=== PATIENT | female | born 1955 | race Caucasian/White ===

== ENCOUNTER 2016-05-02 17:35 | Inpatient (IN) | payer MEDICAID ==
[~2016-05-02] VITALS: Ht 160 cm; Wt 81.8 kg
[~2016-05-02 17:35] MED LIST: ATOR1TAB18 PO; AVEL1TAB PO; CALCCAP12 PO; CEFD1CAP8 PO; COMBAER6 INH; DEXT75EL PO; DRIS50002 PO; DUONSOL INH; IBUP800T23 PO; IPRASOL4 NEB; JANU100T PO; METF1000 PO; MOM30SS PO; NICO14DI3 TD; PRED10TA PO; PRED20TA PO; PRED20TAB PO; PRED5TA PO; SENO8.6T10 PO; SENO8.6T2 PO; SYMB80INH INH; SYNT112T2 PO; VITA100037 PO; ZITH500T PO
[2016-05-02] MEDS ORDERED: PROA1AER (18:10)
[2016-05-02] MEDS ORDERED: IPRASOL4 NEB (18:10)
[2016-05-02] MEDS ORDERED: GLYB5TA PO (18:10)
[2016-05-02] MEDS ORDERED: dexameTHASONE 20 MG/5 ML VIAL (J1100) IV ONE (19:30)
[2016-05-02] MEDS ORDERED: ACETAMINOPHEN 325 MG TAB PO ONE (19:30)
[2016-05-02] MEDS: IPRATROPIUM 0.5MG/ALBUTEROL 2.5MG INH SOL UD 3ML (DUONEB)(J7620) NEB SCH ×4 (19:44→23:32)
[2016-05-02 19:45] LABS: BASO % 0.3 % (0.0-1.0); EOS % 0.1 % (0.0-3.0); LARGE UNSTAINED CELL # 0.1 K/mm3 (0.0-0.4); LARGE UNSTAINED CELL % 1.5 % (0.0-4.0); LYMPH # 1.1 K/mm3 (1.5-4.5); LYMPH % 10.4 % (24.0-44.0); MEAN CORPUSCULAR HEMOGLOBIN 30.1 pg (27.0-33.0); MEAN CORPUSCULAR HGB CONC 33.6 g/dl (32.0-36.5); MEAN CORPUSCULAR VOLUME 89.7 fl (80.0-96.0); MONO # 0.7 K/mm3 (0.0-0.8); NEUTROPHILS # 7.6 K/mm3 (1.8-7.7); NEUTROPHILS % 80.7 % (36.0-66.0); PLATELET COUNT, AUTOMATED 162 k/mm3 (150-450); RED CELL DISTRIBUTION WIDTH 14.5 % (11.5-14.5); WHITE BLOOD COUNT 9.4 K/mm3 (4.0-10.0)
[2016-05-02 19:55] LABS: ANION GAP 8 MEQ/L (8-16); BLOOD UREA NITROGEN 10 MG/DL (7-18); CALCIUM LEVEL 9.2 MG/DL (8.8-10.2); CARBON DIOXIDE LEVEL 29 MEQ/L (21-32); CHLORIDE LEVEL 103 MEQ/L (98-107); CREATININE FOR GFR 0.78 MG/DL (0.55-1.02); GLOMERULAR FILTRATION RATE > 60.0 (>45); GLUCOSE, FASTING 168 MG/DL (80-110); POTASSIUM SERUM 3.9 MEQ/L (3.5-5.1); SODIUM LEVEL 140 MEQ/L (136-145)
--- NOTE | 2016-05-02 20:13 | REP ---
Clinical: Dyspnea. Comparison: 12/29/2014. Findings: Examination is limited by portable technique and poor expiratory effort. Chronic basilar changes are appreciated. Subtle atelectasis cannot be excluded. No discrete focal consolidation, effusion, or pneumothorax. Impression: Chronic changes. Cannot exclude trace basilar atelectasis. Signed by Scout King MD 05/02/2016 08:04 P
[2016-05-02 20:18] LABS: VENOUS BASE EXCESS 3.1 (-2.0-2.0); VENOUS O2 SATURATION 93.4 % (60.0-80.0); VENOUS PARTIAL PRESSURE CO2 46.8 mmHg (38.0-50.0); VENOUS STANDARD HCO3 27.1 MEQ/L
[2016-05-02] MEDS ORDERED: NS 500 ML IV ONE (20:45)
[2016-05-02 23:54] LABS: MAGNESIUM LEVEL 1.7 MG/DL (1.8-2.4)
[2016-05-03] MEDS ORDERED: ACETAMINOPHEN TAB 650MG DOSE (2X325MG) PO PRN
[2016-05-03] MEDS ORDERED: AZITHROMYCIN INJ 500 MG, VIAL MATE ADAPTER 1 EACH in D5W 250 ML IV SCH ×3
[2016-05-03] MEDS ORDERED: ONDANSETRON 4MG/2ML VIAL (J2405) IV PRN
[2016-05-03] MEDS ORDERED: IPRATROPIUM 0.5MG/ALBUTEROL 2.5MG INH SOL UD 3ML (DUONEB)(J7620) NEB SCH
[2016-05-03] MEDS ORDERED: GLUCOSE 4 GM CHEW TABLET PO PRN
[2016-05-03] MEDS ORDERED: IPRATROPIUM 0.5MG/ALBUTEROL 2.5MG INH SOL UD 3ML (DUONEB)(J7620) NEB PRN
[2016-05-03] MEDS ORDERED: DEXTROSE 50% 50 ML SYRINGE IV PRN
[2016-05-03] MEDS ORDERED: cefTRIAXone SOD 1 GM in D5W MINI-BAG PLUS 50 ML IV SCH ×2
[2016-05-03] MEDS ORDERED: GLUCAGON FOR INJ 1 MG VIAL (J1610) SC PRN
[2016-05-03] MEDS: IPRATROPIUM 0.5MG/ALBUTEROL 2.5MG INH SOL UD 3ML (DUONEB)(J7620) NEB SCH ×4 (00:03→21:23)
[2016-05-03] MEDS ORDERED: SYMB16INH INH (00:21)
[2016-05-03] MEDS ORDERED: CALC1TAB17 PO (00:21)
[2016-05-03] MEDS ORDERED: IBUP60TA PO (00:21)
[2016-05-03] MEDS ORDERED: ALBU17IN INH (00:21)
[2016-05-03] MEDS ORDERED: NYST100024 TOP (00:22)
[2016-05-03] MEDS ORDERED: TYLE500T78 PO (00:22)
[2016-05-03] MEDS ORDERED: MAG SULF 1GM/100ML (MAG RUN) 1 GM in APPROPRIATE DILUENT 1 EA IV ONE (00:30)
[2016-05-03] MEDS ORDERED: SYNT125T PO (00:42)
[2016-05-03] MEDS ORDERED: methylPREDNISolone INJ 125 MG/2 ML VIAL (J2930) IV SCH ×2 (01:00→09:00)
[2016-05-03 01:22] LABS: ERYTHROCYTE SEDIMENTATION RATE 26 mm/hr (0-30)
[2016-05-03] MEDS ORDERED: SODIUM CHLORIDE 0.9% 1000 ML IV ONE (01:45)
[2016-05-03] MEDS: LevoFLOXacin IV 750 MG in APPROPRIATE DILUENT 1 EA IV SCH ×2 (02:11→23:46)
[2016-05-03] MEDS: NS 1,000 ML IV SCH ×4 (02:45→23:45)
[2016-05-03] MEDS ORDERED: NS 1,000 ML IV ONE (02:45)
--- NOTE | 2016-05-03 04:15 | HPE ---
DATE OF ADMISSION: 05/03/2016 TIME PATIENT WAS SEEN: 01:00 PRIMARY CARE PROVIDER: Dr. Pruitt CIVIL ENGINEERING DESIGN DRAFTSPERSON: Dr. Bryant CHIEF COMPLAINT: Shortness of breath. HISTORY OF PRESENT ILLNESS: 60-year-old female with past medical history of chronic obstructive pulmonary disease (COPD), non-insulin dependent type 2 diabetes, hyperlipidemia, hypothyroidism, osteoporosis, presented with increased shortness of breath. Per patient, her symptoms initially started one month ago with a cough and progressively her troubled breathing has increased, especially in the past few days. She said that she could have gotten a cold. In addition, her sister also has cold-like symptoms, who lives with her. She also reports greenish-yellowish sputum and productive cough with green-yellowish sputum. She also reports shortness of breath , some nausea, and chronic diarrhea for at least one year. In addition, she reports hurting when she tries to go urinate started a few days ago. She also admits to elevated temperature, when she was initially seen in the emergency room. Temperature was 100.1; however, she denies any chills. Denies any chest pain, abdominal pain, any vomiting, or constipation. Last bowel movement was the day before yesterday. Denies any rash, or denies any recent weight changes. ALLERGIES: No known drug allergies. HOME MEDICATIONS: Includes - acetaminophen 1000 mg one tablet by mouth every six hours as needed - Ventolin two puffs inhalation every four hours as needed - DuoNeb treatments one nebulizer four times a day - atorvastatin 80 mg one tablet by mouth four times a day - Symbicort 160/4.5 mcg two puffs inhalation twice a day - calcium with vitamin D 200 units one tablet by mouth daily - glyburide 5 mg one tablet by mouth twice a day - ibuprofen 600 mg one tablet by mouth every six hours as needed - Synthroid 125 mcg by mouth daily - metformin 1000 mg one tablet by mouth bid - nystatin powder topically twice a day as needed - Januvia 100 mg one tablet by mouth once a day - vitamin D 50,000 units one tablet every week - vitamin D 2000 units one tablet by mouth once a day PAST MEDICAL HISTORY: 1. COPD, emphysematous on two liters of oxygen 24 hours a day at home. 2. Non-insulin dependent diabetes type 2 diabetes. 3. Hyperlipidemia. 4. Hypothyroidism. 5. Osteoporosis. 6. Chronic pain. 7. Vitamin D deficiency. PAST SURGICAL HISTORY: 1. Appendectomy. 2. Hernia repair times two. SOCIAL HISTORY: Patient denies any smoking quit one year ago used to smoke two packs per day for at least 30 years. She also reports to second hand smoke at smoke. Denies any drinking or recreational drug use. Patient lives with several family members including sister and her son. FAMILY HISTORY: Asthma, diabetes, Alzheimer's and emphysema runs in the family. REVIEW OF SYSTEMS: GENERAL: Patient denies any recent traveling. Admits to weight loss of about 10 pounds over the past few months. Admits to sick contacts. Patient states her sister is also having cold-like symptoms. Denies any chills. Admits to low-grade temperature in the emergency room. HEENT: Denies any changes with vision, smell, hearing or taste. Admits to cough, which was productive with yellow-greenish sputum. Admits to sore throat. CARDIOVASCULAR: Denies any chest pain. Admits to trouble breathing which has increased over the past few days. Admits to sleeping at an angle using hospital bed. PULMONARY: Patient does have COPD, which is emphysematous type, follows with Dr. Bryant, pulmonology outpatient and she also uses two liters of nasal cannula oxygen 24 hours a day at home at baseline. However, she has been using more oxygen lately due to increased trouble breathing. GI: Denies any abdominal pain. Admits to feeling nausea; however, no vomiting. She also has chronic diarrhea; however, has not had loose stools since two days ago. : Patient admits to dysuria and hurting when she urinates. Denies any blood in the urine. Denies any blood in the stool. MUSCULOSKELETAL: Patient does have chronic pain; however, denies pain any where else currently. ENDOCRINE: Patient does have type 2 diabetes and also hypothyroidism. Denies any excessive cold or heat intolerance currently. HEMATOLOGY/ONCOLOGY: Admits to weight loss of about 10 pounds over the past few months. Denies any bruising or easy bleeding or any current bleeding. NEUROLOGICAL: Denies any weakness on one side of the body, or change in sensation. PSYCHIATRIC: Denies any anxiety or depression. PHYSICAL EXAMINATION: VITAL SIGNS: Temperature 100.1, pulse 109, respirations 24, blood pressure 139/70, oxygen saturation at 87% on room air, initially when patient was seen she was satting at 93% on two liters nasal cannula. GENERAL: Patient is morbidly obese, elderly female who was pleasant, appears to be in no distress, sitting up in her bed with head elevated at 90 degrees. HEENT: Normocephalic, atraumatic. Extraocular motors are intact. Mucous membranes moist. NECK: Supple. No neck lymphadenopathy. CARDIOVASCULAR: Tachycardic, S1, S2. No murmurs, rubs, or gallops. LUNGS: Shows diffuse wheezing and rhonchi bilaterally. ABDOMEN: Obese, positive bowel sounds. Soft, nontender, nondistended. No peritoneal signs. No ecchymosis. EXTREMITIES: No edema, clubbing, or cyanosis. SKIN: Warm and dry. NEURO: Cranial nerves II-XII intact. No focal neurological deficit. LABS: WBC 9.4, hemoglobin 14.7, hematocrit 43.6, platelet count of 162 and MCV of 89.7. Sodium 140, potassium 3.9, chloride 103, bicarbonate 29, BUN 10, creatinine 0.78, GFR greater than 60, fasting glucose 168, lactic acid 2.2, calcium 9.2, magnesium 1.7, which was low, CK 48, CK-MB 1, troponin less than 0.02, CRP was elevated at 8.19. BNP was 15.6, TSH 0.405. Patient had an VBG in the emergency department (ED) which shows pH 7.4, pCO2 46.8, pO2 63, oxygen saturation was 93% with base excess of 3.1. Urinalysis shows cloudy, 1+ protein, 3+ glucose, trace ketone, 3+ leukocyte esterase, WBC was too many to count, RBC 9, bacteremia 3+. Urine culture is pending. Blood culture is pending. Rapid flu test was negative. Patient also had a portable chest x-ray in the emergency room shows chronic changes, cannot exclude trace atelectasis. ASSESSMENT AND PLAN: 60-year-old female with past medical history of chronic obstructive pulmonary disease (COPD), emphysematous type on two liters nasal cannula 24 hours a day at home, non-insulin dependent type 2 diabetes, hyperlipidemia, hypothyroidism, osteoporosis, vitamin D deficiency, presented with: 1. Shortness of breath with hypercarbic, hypoxic respiratory failure likely secondary to COPD exacerbation with possible upper respiratory infection, possible viral. We will start the patient on levofloxacin 750 mg every 24 hours, as well as DuoNebs every eight hours and every 2 hours as needed, Solu-Medrol 60 mg every eight hours, continue patient on oxygen, titrate between 88 and 92 percent. I will also order guaifenesin, and also Tessalon Perles to control patient's cough. Respiratory panel has also been ordered to identify etiology of possible viral infection. At this point, the patient's chest x-ray did not show any infiltrate; however, it does have mild trace basilar atelectasis . 3. Tachycardia with pulse of 110s likely secondary to COPD exacerbation. EKG shows sinus tachycardia. We will continue to monitor. Cardiac markers have been negative. Troponin was less than 0.02. 4. Non-insulin dependent type 2 diabetes. We will hold oral medications. Continue patient on insulin sliding-scale and consistent carbohydrate diet. 5. Hyperlipidemia. Continue home statin. 6. Hypothyroidism. Thyroid stimulating hormone was within range. Continue home Synthroid. 7. Osteoporosis. Continue home calcium. 8. Elevated blood pressure. However, patient's blood pressure was not elevated before patient was seen in the emergency room. We will start patient on Norvasc 5 mg daily with hold parameters with systolic blood pressure less than or equal to 160. 9. Patient also has urinary tract infection with positive urinalysis. Urine culture is pending. We will continue patient on levofloxacin. 10. Deep vein thrombosis (DVT) prophylaxis. Heparin 5000 units subcutaneous every eight hours. DISPOSITION: The patient likely has chronic obstructive pulmonary disease (COPD) exacerbation as well as possible urinary tract infection (UTI) with positive urinalysis. Urine culture is pending. We will continue patient on levofloxacin to cover for both possible bronchitis and urinary tract infection (UTI), and continue to monitor patient. Patient has been discussed with attending doctor, Dr. Joe. My preceptor for this patient encounter was Dr. John Paul Joe. The preceptor was physically present in the building during the encounter and was fully available as needed. All aspects of the patient interview, examination, medical decision making process, and medical care plan development were reviewed and approved by the preceptor. The preceptor is aware and concurs with the plan as stated in the body of this note and will attest to such by his co-signature.
[2016-05-03 06:15] VITALS: BP 142/60
[2016-05-03] MEDS: LEVOTHYROXINE 0.125 MG TAB (125 MCG) PO SCH ×2 (06:32→08:20)
[2016-05-03] MEDS: HEPARIN SOD (PORCINE) 5000 UNITS/ML VIAL SC SCH ×3 (06:33→21:29)
[2016-05-03 07:16] LABS: VENOUS BASE EXCESS -3.8 (-2.0-2.0); VENOUS O2 SATURATION 99.1 % (60.0-80.0); VENOUS PARTIAL PRESSURE CO2 36.1 mmHg (38.0-50.0); VENOUS STANDARD HCO3 21.4 MEQ/L; VENOUS TOTAL CO2 21.8 MEQ/L (24.0-28.0)
[2016-05-03 07:24] LABS: BASO % 0.1 % (0.0-1.0); EOS % 0.3 % (0.0-3.0); LARGE UNSTAINED CELL % 0.4 % (0.0-4.0); LYMPH # 0.5 K/mm3 (1.5-4.5); LYMPH % 5.9 % (24.0-44.0); MEAN CORPUSCULAR HEMOGLOBIN 29.5 pg (27.0-33.0); MEAN CORPUSCULAR HGB CONC 32.9 g/dl (32.0-36.5); MEAN CORPUSCULAR VOLUME 89.5 fl (80.0-96.0); MONO # 0.1 K/mm3 (0.0-0.8); MONO % 1.5 % (0.0-5.0); NEUTROPHILS # 7.6 K/mm3 (1.8-7.7); NEUTROPHILS % 91.9 % (36.0-66.0); PLATELET COUNT, AUTOMATED 158 k/mm3 (150-450); RED CELL DISTRIBUTION WIDTH 14.6 % (11.5-14.5); WHITE BLOOD COUNT 8.2 K/mm3 (4.0-10.0)
[2016-05-03 07:40] LABS: ANION GAP 10 MEQ/L (8-16); BLOOD UREA NITROGEN 11 MG/DL (7-18); CALCIUM LEVEL 7.8 MG/DL (8.8-10.2); CARBON DIOXIDE LEVEL 23 MEQ/L (21-32); CHLORIDE LEVEL 106 MEQ/L (98-107); CREATININE FOR GFR 0.85 MG/DL (0.55-1.02); GLOMERULAR FILTRATION RATE > 60.0 (>45); GLUCOSE, FASTING 290 MG/DL (80-110); POTASSIUM SERUM 3.7 MEQ/L (3.5-5.1); SODIUM LEVEL 139 MEQ/L (136-145)
[2016-05-03 08:00] VITALS: BP 138/73
[2016-05-03] MEDS: amLODIPine 5 MG TAB PO SCH (08:21)
[2016-05-03] MEDS: HumaLOG INSULIN (NovoLOG) PER UNIT SC SCH ×4 (08:21→21:00)
[2016-05-03] MEDS: DOCUSATE SODIUM 100 MG CAP PO SCH ×2 (08:21→21:00)
[2016-05-03] MEDS: ATORVASTATIN 20 MG TAB PO SCH (08:21)
[2016-05-03] MEDS: CALCIUM/VITAMIN D 500 MG TAB PO SCH (08:21)
[2016-05-03] MEDS: guaiFENesin ER 600 MG TAB PO SCH ×2 (08:21→21:29)
--- NOTE | 2016-05-03 11:32 | IPNPDOC ---
Subjective Date Seen The patient was seen on 05/03/16. Subjective Chief Complaint/HPI The patient is a 60-year-old female admitted with a reason for visit of Copd With Acute Exacerbation. Events since last encounter Still with cough. Less SOB. Very shaky Constitutional: Denies: Chills, Fever Pulmonary: Reports: Cough, Dyspnea Cardiovascular: Denies: Chest Pain, Orthopnea, Palpitations Gastrointestinal: Denies: Abdominal Pain, Constipation, Diarrhea, Nausea, Vomiting Objective Physical Examination General Exam: Positive: Alert, Other (Tremulous with hand and leg shaking BL right > Left) Chest Exam: Positive: Diminished (decreased BS with scattered end exp wheezes throughout ), Wheezing Heart Exam: Positive: Regular Rhythm, Tachycardic, Negative: Murmurs Abdomen Exam: Positive: Normal bowel sounds, Soft, Negative: Tenderness Extremity Exam: Negative: Edema Psych Exam: Positive: Oriented x 3 Assessment /Plan Problems (1) COPD with acute exacerbation Status: Acute Problem Text: Continue IV solumedrol - decrease dose to 40IV q 8 hours due to tremulousness Continue LEVAquin CXR negative B/C pending continue nebs Add Tussionex for hs cough (2) Tremulousness Status: Acute Problem Text: may be related to steroids - I will decrease dose No h/o ETOH abuse, but was taking copious amounts of NyQill (4 bottles in 4 days ) prior to admission (3) Elevated lactic acid level Status: Acute Response to Treatment: Improving Problem Text: Continue IVF B/C pending Continue Levaquin (4) Diabetes type 2, uncontrolled Status: Chronic Problem Text: Blood sugars running high secondary to steroids. continue SSI Restart Glipizide and Metformin once eating better (5) Hypothyroidism Status: Chronic Response to Treatment: Stable Plan/VTE VTE Prophylaxis Ordered?: Yes (SQ heparin) VS, I&O, 24H, Fishbone Vital Signs/I&O Vital Signs Date Time Temp Pulse Resp B/P Pulse Ox O2 Delivery O2 Flow Rate FiO2 05/03/16 08:21 98 138/73 05/03/16 08:00 96.9 20 91 Nasal Cannula 2.0 I&O- Last 24 Hours up to 6 AM 05/03/16 06:00 Intake Total 1100 ml Balance 1100 ml Laboratory Data 24H LABS Laboratory Tests 2 05/02/16 18:00: Anion Gap 8, B-Type Natriuretic Peptide 15.6, White Blood Count 9.4, Red Blood Count 4.86, Hemoglobin 14.7, Hematocrit 43.6, Mean Corpuscular Volume 89.7, Mean Corpuscular Hemoglobin 30.1, Mean Corpuscular Hemoglobin Concent 33.6, Red Cell Distribution Width 14.5, Platelet Count 162, Neutrophils (%) (Auto) 80.7H, Lymphocytes (%) (Auto) 10.4L, Monocytes (%) (Auto) 7.0H, Eosinophils (%) (Auto) 0.1, Basophils (%) (Auto) 0.3, Neutrophils # (Auto) 7.6, Lymphocytes # (Auto) 1.1L, Monocytes # (Auto) 0.7, Eosinophils # (Auto) 0.0, Basophils # (Auto) 0.0, C-Reactive Protein, Quantitative 8.19H, Blood Urea Nitrogen 10, Creatinine 0.78 , Sodium Level 140, Potassium Level 3.9, Chloride Level 103, Carbon Dioxide Level 29, Calcium Level 9.2, Total Creatine Kinase 48, Creatine Kinase MB 1.0, Creatine Kinase MB Relative Index 2.08, Erythrocyte Sedimentation Rate 26, Glomerular Filtration Rate > 60.0, Lactic Acid Level 2.2*H, Large Unclassified Cells # 0.1, Large Unclassified Cells % 1.5, Magnesium Level 1.7L, Thyroid Stimulating Hormone (TSH) 0.405, Troponin I < 0.02 05/02/16 19:47: Blood Gas Bicarbonate Standard 27.1, Venous Blood Base Excess 3.1H, Venous Blood pH 7.404, Venous Blood Partial Pressure CO2 46.8, Venous Blood Partial Pressure O2 63.0H, Venous Blood Total Carbon Dioxide 30.0H, Venous Blood HCO3 28.6H, Venous Blood Oxygen Saturation 93.4H 05/03/16 01:32: Urine Amorphous Sediment , Urine Appearance CLOUDYH, Urine Color ARIE, Urine pH 5.0, Urine Specific Mertens 1.024, Urine Protein 1+H, Urine Glucose (UA) 3+H , Urine Ketones TRACEH, Urine Urobilinogen 0.2, Urine Bilirubin NEGATIVE, Urine Leukocyte Esterase 3+H, Urine Bacteria (Auto) 3+H, Urine Blood NEGATIVE, Urine Calcium Carbonate Cryst(Auto) , Urine Calcium Oxalate Cryst (Auto) , Urine Calcium Phosphate Sarah (Auto) , Urine Cellular Casts , Urine Cystine Crystals , Urine Granular Casts (Auto) , Urine Hyaline Casts (Auto) 0, Urine Leucine Crystals , Urine Mucus (Auto) LARGE, Urine Nitrite POSITIVE, Urine Oval Fat Bodies (Auto) , Urine RBC (Auto) 9H, Urine Renal Epithelial Cells , Urine Sperm (Auto) , Urine Squamous Epithelial Cells 2, Urine Transitional Epithelial Cells , Urine Trichomonas (Auto) , Urine Triple Phosphate Cryst (Auto) , Urine Tyrosine Crystals , Urine Uric Acid Crystals (Auto) , Urine WBC (Auto) TNTCH, Urine Waxy Casts (Auto) , Urine Yeast-Like Cells (Auto) 05/03/16 01:48: Lactic Acid Followup at 4 Hours 8.9*H 05/03/16 02:38: Total Creatine Kinase 46 05/03/16 07:10: Anion Gap 10, White Blood Count 8.2, Red Blood Count 4.42, Hemoglobin 13.0, Hematocrit 39.6, Mean Corpuscular Volume 89.5, Mean Corpuscular Hemoglobin 29.5 , Mean Corpuscular Hemoglobin Concent 32.9, Red Cell Distribution Width 14.6H, Platelet Count 158, Neutrophils (%) (Auto) 91.9H, Lymphocytes (%) (Auto) 5.9L, Monocytes (%) (Auto) 1.5, Eosinophils (%) (Auto) 0.3, Basophils (%) (Auto) 0.1, Neutrophils # (Auto) 7.6, Lymphocytes # (Auto) 0.5L, Monocytes # (Auto) 0.1, Eosinophils # (Auto) 0.0, Basophils # (Auto) 0.0, Blood Gas Bicarbonate Standard 21.4, Blood Urea Nitrogen 11, Creatinine 0.85, Sodium Level 139, Potassium Level 3.7, Chloride Level 106, Carbon Dioxide Level 23, Calcium Level 7.8#L, Glomerular Filtration Rate > 60.0, Lactic Acid Level 3.4*H, Large Unclassified Cells # 0.0, Large Unclassified Cells % 0.4, Magnesium Level 2.0, Venous Blood Base Excess -3.8L, Venous Blood pH 7.377, Venous Blood Partial Pressure CO2 36.1L, Venous Blood Partial Pressure O2 150.0H, Venous Blood Total Carbon Dioxide 21.8L, Venous Blood HCO3 20.7L, Venous Blood Oxygen Saturation 99.1H CBC/BMP Laboratory Tests 05/02/16 18:00 Calcium Level 9.2, Total Creatine Kinase 48, Red Blood Count 4.86, Mean Corpuscular Volume 89.7, Mean Corpuscular Hemoglobin 30.1, Mean Corpuscular Hemoglobin Concent 33.6, Red Cell Distribution Width 14.5, Neutrophils (%) (Auto ) 80.7 H, Lymphocytes (%) (Auto) 10.4 L, Monocytes (%) (Auto) 7.0 H, Eosinophils (%) (Auto) 0.1, Basophils (%) (Auto) 0.3, Neutrophils # (Auto) 7.6, Lymphocytes # (Auto) 1.1 L, Monocytes # (Auto) 0.7, Eosinophils # (Auto) 0.0, Basophils # (Auto) 0.0 05/03/16 07:10 Calcium Level 7.8 #L, Red Blood Count 4.42, Mean Corpuscular Volume 89.5, Mean Corpuscular Hemoglobin 29.5, Mean Corpuscular Hemoglobin Concent 32.9, Red Cell Distribution Width 14.6 H, Neutrophils (%) (Auto) 91.9 H, Lymphocytes (%) (Auto ) 5.9 L, Monocytes (%) (Auto) 1.5, Eosinophils (%) (Auto) 0.3, Basophils (%) ( Auto) 0.1, Neutrophils # (Auto) 7.6, Lymphocytes # (Auto) 0.5 L, Monocytes # ( Auto) 0.1, Eosinophils # (Auto) 0.0, Basophils # (Auto) 0.0 Microbiology Microbiology 05/02/16 Blood Culture, Received Pending 05/02/16 Respiratory Virus Panel (PCR) ([facility]), Received Pending 05/02/16 Influenza Virus Type A Antigen - Final, Complete 05/02/16 Influenza Virus Type B Antigen - Final, Complete 05/03/16 Urine Culture, Received Pending ALBIN ZIMMERMAN PA-C May 03, 2016 11:32
[2016-05-03] MEDS ORDERED: BENZONATATE 100 MG CAP PO PRN ×2 (11:45)
[2016-05-03 12:00] VITALS: BP 116/60
[2016-05-03 16:00] VITALS: BP 104/81
[2016-05-03] MEDS: methylPREDNISolone INJ 40 MG/1 ML VIAL (J2920) IV SCH (16:47)
[2016-05-03 20:00] VITALS: BP 116/61
[2016-05-03 21:23] VITALS: O2SAT 94
[2016-05-04] VITALS (7 sets, daily range): BP systolic 114–153; BP diastolic 61–83
[2016-05-04] MEDS: methylPREDNISolone INJ 40 MG/1 ML VIAL (J2920) IV SCH ×3 (02:01→17:02)
[2016-05-04] MEDS: NS 1,000 ML IV SCH ×4 (05:10→22:14)
[2016-05-04] MEDS: LEVOTHYROXINE 0.125 MG TAB (125 MCG) PO SCH (05:10)
[2016-05-04] MEDS: HEPARIN SOD (PORCINE) 5000 UNITS/ML VIAL SC SCH ×3 (05:10→20:45)
[2016-05-04 06:01] LABS: BASO % 0.1 % (0.0-1.0); EOS % 0.2 % (0.0-3.0); LARGE UNSTAINED CELL # 0.1 K/mm3 (0.0-0.4); LARGE UNSTAINED CELL % 0.4 % (0.0-4.0); LYMPH # 0.8 K/mm3 (1.5-4.5); LYMPH % 4.4 % (24.0-44.0); MEAN CORPUSCULAR HEMOGLOBIN 29.7 pg (27.0-33.0); MEAN CORPUSCULAR HGB CONC 32.2 g/dl (32.0-36.5); MONO # 0.5 K/mm3 (0.0-0.8); MONO % 3.1 % (0.0-5.0); NEUTROPHILS # 15.5 K/mm3 (1.8-7.7); NEUTROPHILS % 91.7 % (36.0-66.0); PLATELET COUNT, AUTOMATED 185 k/mm3 (150-450); RED CELL DISTRIBUTION WIDTH 14.6 % (11.5-14.5); WHITE BLOOD COUNT 16.9 K/mm3 (4.0-10.0)
[2016-05-04 06:07] LABS: ALBUMIN 2.6 GM/DL (3.2-5.2); ALBUMIN/GLOBULIN RATIO 0.67 (1.00-1.93); ALKALINE PHOSPHATASE 112 U/L (45-117); ALT/SGPT 15 U/L (12-78); ANION GAP 7 MEQ/L (8-16); AST/SGOT 15 U/L (15-37); BILIRUBIN,TOTAL 0.2 MG/DL (0.2-1.0); BLOOD UREA NITROGEN 19 MG/DL (7-18); CALCIUM LEVEL 8.3 MG/DL (8.8-10.2); CARBON DIOXIDE LEVEL 25 MEQ/L (21-32); CHLORIDE LEVEL 109 MEQ/L (98-107); CREATININE FOR GFR 0.82 MG/DL (0.55-1.02); GLOMERULAR FILTRATION RATE > 60.0 (>45); GLUCOSE, FASTING 225 MG/DL (80-110); SODIUM LEVEL 141 MEQ/L (136-145); TOTAL PROTEIN 6.5 GM/DL (6.4-8.2)
[2016-05-04] MEDS: IPRATROPIUM 0.5MG/ALBUTEROL 2.5MG INH SOL UD 3ML (DUONEB)(J7620) NEB SCH ×2 (07:30→20:37)
[2016-05-04] MEDS: ATORVASTATIN 20 MG TAB PO SCH (09:22)
[2016-05-04] MEDS: DOCUSATE SODIUM 100 MG CAP PO SCH ×2 (09:23→20:44)
[2016-05-04] MEDS: CALCIUM/VITAMIN D 500 MG TAB PO SCH (09:23)
[2016-05-04] MEDS: guaiFENesin ER 600 MG TAB PO SCH ×2 (09:23→20:44)
[2016-05-04] MEDS: amLODIPine 5 MG TAB PO SCH (09:23)
[2016-05-04] MEDS: HumaLOG INSULIN (NovoLOG) PER UNIT SC SCH ×4 (09:34→20:45)
[2016-05-04] MEDS: NYSTATIN 100,000 UNITS/GM TOPICAL PWD 15 GM TOP SCH (22:14)
[2016-05-05] MEDS: methylPREDNISolone INJ 40 MG/1 ML VIAL (J2920) IV SCH ×2 (00:15→08:35)
[2016-05-05] MEDS: LevoFLOXacin IV 750 MG in APPROPRIATE DILUENT 1 EA IV SCH (00:15)
[2016-05-05 04:00] VITALS: BP 126/72
[2016-05-05 05:31] LABS: BASO % 0.1 % (0.0-1.0); EOS % 0.2 % (0.0-3.0); LARGE UNSTAINED CELL # 0.1 K/mm3 (0.0-0.4); LARGE UNSTAINED CELL % 0.4 % (0.0-4.0); LYMPH # 0.7 K/mm3 (1.5-4.5); LYMPH % 5.1 % (24.0-44.0); MEAN CORPUSCULAR HEMOGLOBIN 29.1 pg (27.0-33.0); MEAN CORPUSCULAR HGB CONC 32.5 g/dl (32.0-36.5); MEAN CORPUSCULAR VOLUME 89.7 fl (80.0-96.0); MONO # 0.4 K/mm3 (0.0-0.8); MONO % 3.1 % (0.0-5.0); NEUTROPHILS # 11.6 K/mm3 (1.8-7.7); NEUTROPHILS % 91.1 % (36.0-66.0); PLATELET COUNT, AUTOMATED 186 k/mm3 (150-450); RED CELL DISTRIBUTION WIDTH 14.6 % (11.5-14.5); WHITE BLOOD COUNT 12.7 K/mm3 (4.0-10.0)
[2016-05-05 05:47] LABS: ANION GAP 7 MEQ/L (8-16); BLOOD UREA NITROGEN 16 MG/DL (7-18); CALCIUM LEVEL 8.1 MG/DL (8.8-10.2); CARBON DIOXIDE LEVEL 25 MEQ/L (21-32); CHLORIDE LEVEL 109 MEQ/L (98-107); CREATININE FOR GFR 0.68 MG/DL (0.55-1.02); GLOMERULAR FILTRATION RATE > 60.0 (>45); GLUCOSE, FASTING 305 MG/DL (80-110); MAGNESIUM LEVEL 2.1 MG/DL (1.8-2.4); POTASSIUM SERUM 4.3 MEQ/L (3.5-5.1); SODIUM LEVEL 141 MEQ/L (136-145)
[2016-05-05] MEDS: HEPARIN SOD (PORCINE) 5000 UNITS/ML VIAL SC SCH ×3 (05:51→21:16)
[2016-05-05] MEDS: LEVOTHYROXINE 0.125 MG TAB (125 MCG) PO SCH (05:51)
[2016-05-05] MEDS: NS 1,000 ML IV SCH (05:51)
[2016-05-05 07:51] VITALS: BP 145/71
[2016-05-05] MEDS: IPRATROPIUM 0.5MG/ALBUTEROL 2.5MG INH SOL UD 3ML (DUONEB)(J7620) NEB SCH ×2 (08:04→20:12)
[2016-05-05] MEDS: HumaLOG INSULIN (NovoLOG) PER UNIT SC SCH ×4 (08:32→21:00)
[2016-05-05] MEDS: ATORVASTATIN 20 MG TAB PO SCH (08:33)
[2016-05-05] MEDS: NYSTATIN 100,000 UNITS/GM TOPICAL PWD 15 GM TOP SCH ×2 (08:33→21:17)
[2016-05-05] MEDS: cefTRIAXone SOD 1 GM in D5W MINI-BAG PLUS 50 ML IV SCH (08:33)
[2016-05-05] MEDS: guaiFENesin ER 600 MG TAB PO SCH ×2 (08:35→21:16)
[2016-05-05] MEDS: amLODIPine 5 MG TAB PO SCH (08:35)
[2016-05-05] MEDS: DOCUSATE SODIUM 100 MG CAP PO SCH ×2 (08:35→21:16)
[2016-05-05] MEDS: CALCIUM/VITAMIN D 500 MG TAB PO SCH (08:35)
--- NOTE | 2016-05-05 09:51 | ECGEPIP ---
Stationary ECG Study [facility] Test Date: 2016-05-04 Pat Name: VADIM DE LOS SANTOS Department: Room: [place] [address] Gender: F Platform Builder: POPEYE : 1955 Requested By: Wili Pruitt Order Number: [id number] Reading MD: Yamile Arboleda Measurements Intervals [place] Rate: 63 P: -89 VA: 110 QRS: -8 QRSD: 82 T: 27 QT: 405 QTc: 415 Interpretive Statements JUNCTIONAL RHYTHM LOW QRS VOLTAGE IN PRECORDIAL LEADS NON-SPECIFIC STT ABNORMALITIES JUNCTIONAL RHYTHM IS NEW SINCE 05/17/14 Electronically Signed On 05-05-2016 9:50:54 EDT by Yamile Arboleda
[2016-05-05 12:00] VITALS: BP 145/70
--- NOTE | 2016-05-05 12:17 | IPNPDOC ---
Subjective Date Seen The patient was seen on 05/05/16. Subjective Chief Complaint/HPI The patient is a 60-year-old female admitted with a reason for visit of Copd With Acute Exacerbation. Events since last encounter Had asymptomatic run of V-tach . Denies CP. Breathing better. Still with cough. Gets shaky with Solumedrol Constitutional: Denies: Chills, Fever Pulmonary: Reports: Cough, Dyspnea Cardiovascular: Denies: Chest Pain, Orthopnea, Palpitations Gastrointestinal: Denies: Abdominal Pain, Constipation, Diarrhea, Nausea, Vomiting Objective Physical Examination General Exam: Positive: Alert, Other (Less tremulous but still shaky) Chest Exam: Positive: Other (Better a/e. Only a few scattered end exp wheezes. No rhonvhi or rales. still with bronchospastic cough) Heart Exam: Positive: Regular Rhythm, Tachycardic, Negative: Murmurs Abdomen Exam: Positive: Normal bowel sounds, Soft, Negative: Tenderness Extremity Exam: Negative: Edema Psych Exam: Positive: Oriented x 3 Assessment /Plan Problems (1) Ventricular tachyarrhythmia Status: Resolved Problem Text: assymptomatic V-tach check enzymes and EKG. electrolyses normal . repeat mag (2) COPD with acute exacerbation Status: Acute Problem Text: 05/05 - Change to po prednisone due to tremulousness from IV Solumedrol Coronavirus per resp panel continue nebs (3) E-coli UTI Status: Acute Response to Treatment: Improving Problem Text: Levaquin switched to Rocephin today (4) Diabetes type 2, uncontrolled Status: Chronic Problem Text: 05/05 - Blood sugars running high secondary to steroids. continue SSI Restart Glipizide and Metformin today (5) Hypothyroidism Status: Chronic Response to Treatment: Stable Plan/VTE VTE Prophylaxis Ordered?: Yes (SQ heparin) VS, I&O, 24H, Fishbone Vital Signs/I&O Vital Signs Date Time Temp Pulse Resp B/P Pulse Ox O2 Delivery O2 Flow Rate FiO2 05/05/16 08:35 74 145/71 05/05/16 08:00 Nasal Cannula 2.0 05/05/16 07:51 96.3 19 95 I&O- Last 24 Hours up to 6 AM 05/05/16 06:00 Intake Total 5410 ml Output Total 2875 ml Balance 2535 ml Laboratory Data 24H LABS Laboratory Tests 2 05/04/16 16:39: Bedside Glucose (Misc Panel) 205H 05/04/16 20:35: Bedside Glucose (Misc Panel) 262H 05/05/16 05:15: Anion Gap 7L, White Blood Count 12.7H, Red Blood Count 4.49, Hemoglobin 13.1, Hematocrit 40.3, Mean Corpuscular Volume 89.7, Mean Corpuscular Hemoglobin 29.1 , Mean Corpuscular Hemoglobin Concent 32.5, Red Cell Distribution Width 14.6H, Platelet Count 186, Neutrophils (%) (Auto) 91.1H, Lymphocytes (%) (Auto) 5.1L, Monocytes (%) (Auto) 3.1, Eosinophils (%) (Auto) 0.2, Basophils (%) (Auto) 0.1, Neutrophils # (Auto) 11.6H, Lymphocytes # (Auto) 0.7L, Monocytes # (Auto) 0.4, Eosinophils # (Auto) 0.0, Basophils # (Auto) 0.0, Blood Urea Nitrogen 16, Creatinine 0.68, Sodium Level 141, Potassium Level 4.3, Chloride Level 109H, Carbon Dioxide Level 25, Calcium Level 8.1L, Glomerular Filtration Rate > 60.0, Large Unclassified Cells # 0.1, Large Unclassified Cells % 0.4, Magnesium Level 2.1 05/05/16 12:00: Bedside Glucose (Misc Panel) 299H CBC/BMP Laboratory Tests 05/05/16 05:15 Calcium Level 8.1 L, Red Blood Count 4.49, Mean Corpuscular Volume 89.7, Mean Corpuscular Hemoglobin 29.1, Mean Corpuscular Hemoglobin Concent 32.5, Red Cell Distribution Width 14.6 H, Neutrophils (%) (Auto) 91.1 H, Lymphocytes (%) (Auto ) 5.1 L, Monocytes (%) (Auto) 3.1, Eosinophils (%) (Auto) 0.2, Basophils (%) ( Auto) 0.1, Neutrophils # (Auto) 11.6 H, Lymphocytes # (Auto) 0.7 L, Monocytes # (Auto) 0.4, Eosinophils # (Auto) 0.0, Basophils # (Auto) 0.0 Microbiology Microbiology 05/02/16 Blood Culture - Preliminary, Resulted No Growth after 48 hours. All Specime... 05/02/16 Respiratory Virus Panel (PCR) ([facility]) - Final, Complete Coronavirus Oc43 05/02/16 Influenza Virus Type A Antigen - Final, Complete 05/02/16 Influenza Virus Type B Antigen - Final, Complete 05/03/16 Urine Culture - Final, Complete Escherichia Coli ALBIN ZIMMERMAN PA-C May 05, 2016 12:17
--- NOTE | 2016-05-05 15:18 | ECGEPIP ---
Stationary ECG Study [facility] Test Date: 2016-05-05 Pat Name: VADIM DE LOS SANTOS Department: Room: [place] [address] Gender: F [place] Operator: AMBER : 1955 Requested By: ALBIN Lawton PA-C Order Number: [id number] Reading MD: Saul Horton Measurements Intervals [place] Rate: 69 P: -89 PA: 119 QRS: -7 QRSD: 77 T: 9 QT: 377 QTc: 406 Interpretive Statements Atrial rhythm or JUNCTIONAL RHYTHM LOW QRS VOLTAGES, Poor R-wave progression. ABNORMAL RHYTHM ECG No significant change compared with 05/04/2016. Electronically Signed On 05-05-2016 15:18:44 EDT by Saul Horton
[2016-05-05 16:00] VITALS: BP 155/81
[2016-05-05] MEDS: glipiZIDE (GLUCOTROL) 5 MG TAB PO SCH (17:35)
[2016-05-05 20:00] VITALS: BP 144/72
[2016-05-05] MEDS: predniSONE 20 MG TAB PO SCH (21:16)
[2016-05-06] VITALS (7 sets, daily range): BP systolic 129–167; BP diastolic 68–95; O2SAT 95
[2016-05-06 05:19] LABS: BASO % 0.1 % (0.0-1.0); EOS % 0.3 % (0.0-3.0); LARGE UNSTAINED CELL # 0.1 K/mm3 (0.0-0.4); LARGE UNSTAINED CELL % 0.9 % (0.0-4.0); LYMPH # 1.1 K/mm3 (1.5-4.5); LYMPH % 11.2 % (24.0-44.0); MEAN CORPUSCULAR HEMOGLOBIN 29.7 pg (27.0-33.0); MEAN CORPUSCULAR HGB CONC 32.7 g/dl (32.0-36.5); MEAN CORPUSCULAR VOLUME 90.7 fl (80.0-96.0); MONO # 0.5 K/mm3 (0.0-0.8); MONO % 4.9 % (0.0-5.0); NEUTROPHILS # 7.6 K/mm3 (1.8-7.7); NEUTROPHILS % 82.5 % (36.0-66.0); PLATELET COUNT, AUTOMATED 188 k/mm3 (150-450); RED CELL DISTRIBUTION WIDTH 14.3 % (11.5-14.5); WHITE BLOOD COUNT 9.2 K/mm3 (4.0-10.0)
[2016-05-06 05:38] LABS: ANION GAP 6 MEQ/L (8-16); BLOOD UREA NITROGEN 17 MG/DL (7-18); CALCIUM LEVEL 8.3 MG/DL (8.8-10.2); CARBON DIOXIDE LEVEL 28 MEQ/L (21-32); CHLORIDE LEVEL 108 MEQ/L (98-107); CREATININE FOR GFR 0.69 MG/DL (0.55-1.02); GLOMERULAR FILTRATION RATE > 60.0 (>45); GLUCOSE, FASTING 232 MG/DL (80-110); MAGNESIUM LEVEL 2.1 MG/DL (1.8-2.4); POTASSIUM SERUM 4.3 MEQ/L (3.5-5.1); SODIUM LEVEL 142 MEQ/L (136-145)
[2016-05-06] MEDS: HEPARIN SOD (PORCINE) 5000 UNITS/ML VIAL SC SCH ×3 (06:36→21:06)
[2016-05-06] MEDS: LEVOTHYROXINE 0.125 MG TAB (125 MCG) PO SCH (06:36)
[2016-05-06] MEDS: cefTRIAXone SOD 1 GM in D5W MINI-BAG PLUS 50 ML IV SCH (08:41)
[2016-05-06] MEDS: guaiFENesin ER 600 MG TAB PO SCH ×2 (08:42→21:05)
[2016-05-06] MEDS: CALCIUM/VITAMIN D 500 MG TAB PO SCH (08:42)
[2016-05-06] MEDS: ATORVASTATIN 20 MG TAB PO SCH (08:42)
[2016-05-06] MEDS: DOCUSATE SODIUM 100 MG CAP PO SCH ×2 (08:42→21:05)
[2016-05-06] MEDS: HumaLOG INSULIN (NovoLOG) PER UNIT SC SCH ×4 (08:42→19:55)
[2016-05-06] MEDS: NYSTATIN 100,000 UNITS/GM TOPICAL PWD 15 GM TOP SCH ×2 (08:43→21:06)
[2016-05-06] MEDS: glipiZIDE (GLUCOTROL) 5 MG TAB PO SCH ×2 (08:43→17:25)
[2016-05-06] MEDS: predniSONE 20 MG TAB PO SCH ×2 (08:43→21:05)
[2016-05-06] MEDS: amLODIPine 5 MG TAB PO SCH (08:45)
[2016-05-06] MEDS: IPRATROPIUM 0.5MG/ALBUTEROL 2.5MG INH SOL UD 3ML (DUONEB)(J7620) NEB SCH ×2 (09:13→19:05)
--- NOTE | 2016-05-06 13:24 | IPN ---
DATE: 05/06/2016 Kimmy is seen in the progressive care unit (PCU). She is resting comfortably. Her breathing is getting better. She thinks she should be able to go home in the next day or two. I do not think she has had any significant ventricular tachy-arrhythmias, at least none have been recorded. She has an Escherichia (E) coli urinary tract infection (UTI), Coronavirus-induced chronic obstructive pulmonary disease (COPD) exacerbation and has uncontrolled type 2 diabetes, which has come under better control. PHYSICAL EXAMINATION: Blood pressure 133/68, pulse of 88, 96% oxygen saturation on 2 liters. General Appearance: Resting comfortably. Frequent cough. No jugular venous distention (JVD). Lungs: Decreased breath sounds. Expiratory wheezes all jiménez. Heart: Regular rhythm. Abdomen: Soft, nontender. No peripheral edema. LABORATORY: White cell count unremarkable. CBC looks unremarkable. IMPRESSION: 1. Exacerbation of chronic obstructive pulmonary disease secondary to Coronavirus infection. She is on oral prednisone, nebulized bronchodilator. Hopefully she will be well enough to go home tomorrow. 2. Escherichia coli urinary tract infection. She is on Rocephin for this. Its sensitivities have been reviewed. She is on intravenous (IV) Rocephin. She could probably be discharged on Cipro. 3. Diabetes. Under adequate control. Blood sugars generally below 200. DISPOSITION: Discharge tomorrow if remains stable.
[2016-05-06] MEDS ORDERED: SLF 3 ML SYR IV PRN (23:15)
[2016-05-07 00:33] VITALS: BP 153/83
[2016-05-07 04:52] VITALS: BP 167/83
[2016-05-07 05:24] LABS: BASO % 0.2 % (0.0-1.0); EOS % 0.5 % (0.0-3.0); LARGE UNSTAINED CELL # 0.1 K/mm3 (0.0-0.4); LARGE UNSTAINED CELL % 0.8 % (0.0-4.0); LYMPH # 1.1 K/mm3 (1.5-4.5); LYMPH % 13.3 % (24.0-44.0); MEAN CORPUSCULAR HEMOGLOBIN 29.1 pg (27.0-33.0); MEAN CORPUSCULAR HGB CONC 33.6 g/dl (32.0-36.5); MEAN CORPUSCULAR VOLUME 86.3 fl (80.0-96.0); MONO # 0.4 K/mm3 (0.0-0.8); MONO % 5.1 % (0.0-5.0); NEUTROPHILS # 6.4 K/mm3 (1.8-7.7); PLATELET COUNT, AUTOMATED 207 k/mm3 (150-450)
[2016-05-07 05:40] LABS: ANION GAP 8 MEQ/L (8-16); BLOOD UREA NITROGEN 13 MG/DL (7-18); CALCIUM LEVEL 8.5 MG/DL (8.8-10.2); CARBON DIOXIDE LEVEL 30 MEQ/L (21-32); CHLORIDE LEVEL 101 MEQ/L (98-107); CREATININE FOR GFR 0.68 MG/DL (0.55-1.02); GLOMERULAR FILTRATION RATE > 60.0 (>45); GLUCOSE, FASTING 296 MG/DL (80-110); MAGNESIUM LEVEL 1.9 MG/DL (1.8-2.4); POTASSIUM SERUM 4.2 MEQ/L (3.5-5.1); SODIUM LEVEL 139 MEQ/L (136-145)
[2016-05-07] MEDS: HEPARIN SOD (PORCINE) 5000 UNITS/ML VIAL SC SCH (05:58)
[2016-05-07] MEDS: LEVOTHYROXINE 0.125 MG TAB (125 MCG) PO SCH (05:59)
[2016-05-07] MEDS ORDERED: SLF 3 ML SYR IV SCH (06:00)
[2016-05-07] MEDS: IPRATROPIUM 0.5MG/ALBUTEROL 2.5MG INH SOL UD 3ML (DUONEB)(J7620) NEB SCH (07:07)
[2016-05-07 08:04] VITALS: BP 160/84
[2016-05-07 08:09] VITALS: BP 126/74
[2016-05-07] MEDS: HumaLOG INSULIN (NovoLOG) PER UNIT SC SCH (08:40)
[2016-05-07] MEDS: CALCIUM/VITAMIN D 500 MG TAB PO SCH (08:41)
[2016-05-07] MEDS: predniSONE 20 MG TAB PO SCH (08:41)
[2016-05-07] MEDS: DOCUSATE SODIUM 100 MG CAP PO SCH (08:41)
[2016-05-07] MEDS: cefTRIAXone SOD 1 GM in D5W MINI-BAG PLUS 50 ML IV SCH (08:41)
[2016-05-07] MEDS: ATORVASTATIN 20 MG TAB PO SCH (08:41)
[2016-05-07] MEDS: guaiFENesin ER 600 MG TAB PO SCH (08:41)
[2016-05-07] MEDS: glipiZIDE (GLUCOTROL) 5 MG TAB PO SCH (08:42)
[2016-05-07] MEDS: NYSTATIN 100,000 UNITS/GM TOPICAL PWD 15 GM TOP SCH (08:42)
[2016-05-07 08:43] VITALS: BP 126/74
[2016-05-07] MEDS: amLODIPine 5 MG TAB PO SCH (08:43)
[2016-05-07] MEDS ORDERED: PRED10TA PO (09:52)
[2016-05-07] MEDS ORDERED: MUCI600T34 PO (09:52)
[2016-05-07] MEDS ORDERED: CIPR-250 PO (09:52)
--- NOTE | 2016-05-07 10:15 | DSES ---
DATE OF ADMISSION: 05/03/2016 DATE OF DISCHARGE: 05/07/2016 PRIMARY CARE PROVIDER: Dr. Wili Pruitt ATTENDING PHYSICIAN: Dr. Marjorie Moreland Kimmy Mae is a 60-year-old female patient of Dr. Pruitt that presented to the emergency department with shortness of breath as well as some dysuria. The patient was admitted with a chronic obstructive pulmonary disease (COPD) exacerbation and initially started on Levaquin and Nebs. She had some tachycardia and was placed on the progressive care unit (PCU). 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 Urine culture grew out E. Coli. The patient's antibiotic was switched to IV Rocephin. Plans for when she is able to be discharged would be to be discharged home on Cipro. She was placed on oral prednisone after having some tremors from the IV Solu-Medrol. She has been on sliding scale insulin. At home, she is on glyburide and metformin. On the day of discharge, the patient was doing well. She will be seen by physical therapy and if she passes she will be discharged home. She will be discharged home on oral Cipro for the E. Coli urinary tract infection (UTI). She will continue with Nebs. The patient had been tachycardic at admission. She was on the monitors in the PCU. She does not appear to have any significant ventricular tachyarrhythmias. She will be discharged home with instructions to follow up with Dr. Pruitt in a week. PHYSICAL EXAMINATION: VITALS: Temperature 97. Pulse 91. Respiratory rate 18. Blood pressure 126/ 74. Pulse oximetry 91% on 2 liters by nasal cannula. GENERAL: The patient is alert, in no acute distress. CHEST: Scattered wheezing. HEART: Regular rate and rhythm. ABDOMEN: Positive bowel sounds. Soft. Nontender. EXTREMITIES: No edema. LABORATORIES: WBC 8.0, hemoglobin 14.1, hematocrit 42.0 and platelets 207. Sodium 139, potassium 4.2, chloride 101, carbon dioxide 30, BUN 13, creatinine 0.68, glucose 296, calcium 8.5, magnesium 1.9. Urine culture grew E. Coli. Respiratory virus panel with Coronavirus. MEDICATIONS: - acetaminophen 1000 mg by mouth every 6 hours as needed pain - albuterol puffer 2 puffs every 4 hours as needed shortness of breath - albuterol/ipratropium Nebs four times a day - atorvastatin 80 mg by mouth daily - Symbicort 160/4.5 two puffs twice a day - calcium with vitamin D daily - glyburide 5 mg by mouth twice a day - Synthroid 125 mcg by mouth daily - metformin 1000 mg by mouth twice a day - Nystatin powder topically to affected areas - Januvia 100 mg by mouth daily - vitamin D 50,000 units by mouth weekly - Cipro 250 mg by mouth twice a day times 7 days - Mucinex 600 mg by mouth twice a day - prednisone 10 mg two tablets by mouth daily times 3 days, then one tablet by mouth daily times 3 days, then stop DISCHARGE INSTRUCTIONS: Follow up with Dr. Pruitt in a week. Diet is consistent carbohydrate. Activity as tolerated. DISCHARGE DIAGNOSES: 1. Exacerbation of chronic obstructive pulmonary disease secondary to Coronavirus. 2. Escherichia (E) coli urinary tract infection. 3. Diabetes mellitus. 4. Hypothyroidism. 5. Ventricular tachyarrhythmia. [facility]
== END 2016-05-07 12:37 | disposition home or self-care (01) | DRG 140 ==
LOC: M ED 19:24 → M ED INP 05-03 00:31 → M ICU 05-03 06:10 → M PCU 05-04 02:52
PROVIDERS: ADMIT Internal Medicine; ATTEND Family Medicine
DX: J44.1 Chronic obstructive pulmonary disease with (acute) exacerbation (principal); I47.2 Ventricular tachycardia; N39.0 Urinary tract infection, site not specified; E87.2 Acidosis; E55.9 Vitamin D deficiency, unspecified; B97.29 Other coronavirus as the cause of diseases classified elsewhere; B96.29 Other Escherichia coli [E. coli] as the cause of diseases classified elsewhere; E11.9 Type 2 diabetes mellitus without complications; J22 Unspecified acute lower respiratory infection; J98.8 Other specified respiratory disorders; Z79.899 Other long term (current) drug therapy; E03.9 Hypothyroidism, unspecified; E78.5 Hyperlipidemia, unspecified; M81.0 Age-related osteoporosis without current pathological fracture; Z87.891 Personal history of nicotine dependence

== ENCOUNTER → 2016-05-22 | Outpatient (REF) | payer MEDICAID ==
[~2016-05-22] MED LIST changes: +ALBU17IN INH; +CALC1TAB17 PO; +CIPR-250 PO; +GLYB5TA PO; +IBUP60TA PO; +MUCI600T34 PO; +NYST100024 TOP; +PROA1AER; +SYMB16INH INH; +SYNT125T PO; +TYLE500T78 PO
== END ==
LOC: M SFHCADAM 15:27
PROVIDERS: ATTEND Family Medicine
DX: N39.0 Urinary tract infection, site not specified (principal)

== ENCOUNTER → 2016-08-06 | Outpatient (CLI) | payer OTHER ==
[2016-08-06 12:38] LABS: ALBUMIN 3.6 GM/DL (3.2-5.2); ALKALINE PHOSPHATASE 101 U/L (45-117); ALT/SGPT 18 U/L (12-78); ANION GAP 4 MEQ/L (8-16); AST/SGOT 8 U/L (15-37); BILIRUBIN,TOTAL 0.4 MG/DL (0.2-1.0); BLOOD UREA NITROGEN 12 MG/DL (7-18); CALCIUM LEVEL 9.3 MG/DL (8.8-10.2); CARBON DIOXIDE LEVEL 33 MEQ/L (21-32); CHLORIDE LEVEL 105 MEQ/L (98-107); CHOLESTEROL LEVEL 106 MG/DL (<200); CREATININE FOR GFR 0.72 MG/DL (0.55-1.02); GLOMERULAR FILTRATION RATE > 60.0 (>45); GLUCOSE, FASTING 160 MG/DL (80-110); POTASSIUM SERUM 4.5 MEQ/L (3.5-5.1); SODIUM LEVEL 142 MEQ/L (136-145); TOTAL PROTEIN 6.6 GM/DL (6.4-8.2); TRIGLYCERIDES LEVEL 240 MG/DL (<150)
[2016-08-06 13:07] LABS: MEAN CORPUSCULAR HEMOGLOBIN 31.3 pg (27.0-33.0); MEAN CORPUSCULAR HGB CONC 33.2 g/dl (32.0-36.5); MEAN CORPUSCULAR VOLUME 94.3 fl (80.0-96.0); RED CELL DISTRIBUTION WIDTH 14.2 % (11.5-14.5); WHITE BLOOD COUNT 6.9 K/mm3 (4.0-10.0)
== END ==
LOC: M WUC 09:43
PROVIDERS: ATTEND Family Medicine
DX: E03.9 Hypothyroidism, unspecified (principal); E11.9 Type 2 diabetes mellitus without complications; J44.9 Chronic obstructive pulmonary disease, unspecified; E55.9 Vitamin D deficiency, unspecified

== ENCOUNTER → 2016-08-13 | Outpatient (REF) | payer OTHER ==
[~2016-08-13] MED LIST changes: -ATOR1TAB18 PO; +ATOR80TA59 PO; -AVEL1TAB PO; +AVEL1TAB3 PO; -CALCCAP12 PO; +CALCCAP2 PO; +IBUP1TAB6 PO; +IBUP1TAB7 PO; -IBUP60TA PO; -IBUP800T23 PO; -METF1000 PO; +METF10004 PO; -MUCI600T34 PO; +MUCI600T37 PO; -NYST100024 TOP; +NYST1POW9 TOP; +PRED10TA2 PO; -PROA1AER; +PROAAER10; -SENO8.6T2 PO; +SENO8.6T5 PO; -VITA100037 PO; +VITA100067 PO
== END ==
LOC: M LAB REF 09:27
PROVIDERS: ATTEND Physician Assistant
DX: N39.0 Urinary tract infection, site not specified (principal)

== ENCOUNTER → 2016-08-30 | Outpatient (REF) | payer OTHER | LOC: M LAB REF 21:07 | PROVIDERS: ATTEND Physician Assistant Medical | DX: R30.0 Dysuria (principal) ==

== ENCOUNTER 2017-01-12 13:56 | Inpatient (IN) | payer OTHER ==
[~2017-01-12] VITALS: Ht 165.1 cm; Wt 78.1 kg
[2017-01-12] MEDS ORDERED: COMBAER6 INH (14:13)
[2017-01-12] MEDS ORDERED: GABA-282 PO (14:13)
[2017-01-12] MEDS ORDERED: TRUL10IN SC (14:13)
[2017-01-12] MEDS ORDERED: SYMB16INH INH (14:13)
[2017-01-12] MEDS ORDERED: NS 1,000 ML IV SCH (15:14)
[2017-01-12] MEDS ORDERED: methylPREDNISolone INJ 125 MG/2 ML VIAL (J2930) IV ONE (15:15)
--- NOTE | 2017-01-12 15:39 | REP ---
Chest two views HISTORY: Cough Comparison: 05/02/2016 The lungs are hyperinflated. An increase in interstitial markings is present in the lungs. Bullae are present in the upper lobes. The heart is normal in size. The pulmonary vasculature is normal in appearance. The bony structure is intact. IMPRESSION: COPD. Signed by Varun Faustin MD 01/12/2017 03:31 P
[2017-01-12] MEDS: IPRATROPIUM 0.5MG/ALBUTEROL 2.5MG INH SOL UD 3ML (DUONEB)(J7620) NEB PRN ×2 (15:46→15:58)
[2017-01-12 15:47] LABS: ABG BASE EXCESS 4.2 (-2.0-2.0); ABG HCO3 29.9 MEQ/L (22.0-26.0); ABG PARTIAL PRESSURE CO2 48.1 mmHg (35.0-45.0); ABG PARTIAL PRESSURE O2 69.8 mmHg (75.0-100.0); ABG STANDARD HCO3 28.2 MEQ/L (22.0-26.0); ABG TOTAL CO2 31.3 MEQ/L (23.0-31.0); ABG pH (ARTERIAL) 7.411 UNITS (7.350-7.450)
[2017-01-12 15:56] LABS: BASO % 0.2 % (0.0-1.0); EOS % 0.1 % (0.0-3.0); IMMATURE GRANULOCYTE % 0.2 % (0-0); LYMPH # 1.8 10^3/uL (1.5-4.5); LYMPH % 14.5 % (24.0-44.0); MEAN CORPUSCULAR HEMOGLOBIN 30.6 pg (27.0-33.0); MEAN CORPUSCULAR HGB CONC 32.7 g/dl (32.0-36.5); MEAN CORPUSCULAR VOLUME 93.6 fl (80.0-96.0); MONO % 7.8 % (0.0-5.0); NEUTROPHILS # 9.5 10^3/uL (1.8-7.7); NEUTROPHILS % 77.2 % (36.0-66.0); PLATELET COUNT, AUTOMATED 238 10^3/uL (150-450); RED CELL DISTRIBUTION WIDTH 13.8 % (11.5-14.5); WHITE BLOOD COUNT 12.3 10^3/uL (4.0-10.0)
[2017-01-12 16:10] LABS: ANION GAP 6 MEQ/L (8-16); BLOOD UREA NITROGEN 16 MG/DL (7-18); CALCIUM LEVEL 9.5 MG/DL (8.8-10.2); CARBON DIOXIDE LEVEL 32 MEQ/L (21-32); CHLORIDE LEVEL 102 MEQ/L (98-107); CREATININE FOR GFR 0.66 MG/DL (0.55-1.02); GLOMERULAR FILTRATION RATE > 60.0 (>45); GLUCOSE, FASTING 147 MG/DL (80-110); POTASSIUM SERUM 4.4 MEQ/L (3.5-5.1); SODIUM LEVEL 140 MEQ/L (136-145)
[2017-01-12] MEDS ORDERED: predniSONE 20 MG TAB PO ONE (16:15)
--- NOTE | 2017-01-12 17:54 | ECGEPIP ---
Stationary ECG Study [facility] - ED Test Date: 2017-01-12 Pat Name: VADIM DE LOS SANTOS Department: Room: - Gender: F [employer] Consulting Treasury Director: ct : 1955 Requested By: ALLISON SALMON PA-C. Order Number: [id number] Reading MD: María Calhoun Measurements Intervals [place] Rate: 91 P: 77 [place]: 140 QRS: -8 QRSD: 85 T: 48 QT: 354 QTc: 437 Interpretive Statements SINUS RHYTHM NSTTW ABNORMALITY Electronically Signed On 01-12-2017 17:54:09 EST by María Calhoun
[2017-01-12] MEDS ORDERED: ALBUTEROL SULFATE 2.5 MG/0.5 ML INH NEB SOLN NEB PRN (18:00)
[2017-01-12] MEDS ORDERED: GLUCAGON FOR INJ 1 MG VIAL (J1610) SC PRN (18:00)
[2017-01-12] MEDS ORDERED: GABAPENTIN 300 MG CAP PO PRN (18:00)
[2017-01-12] MEDS ORDERED: DEXTROSE 50% 50 ML SYRINGE IV PRN (18:00)
[2017-01-12] MEDS ORDERED: GLUCOSE 4 GM CHEW TABLET PO PRN (18:00)
[2017-01-12] MEDS: IPRATROPIUM 0.5MG/ALBUTEROL 2.5MG INH SOL UD 3ML (DUONEB)(J7620) NEB SCH (18:00)
--- NOTE | 2017-01-12 18:39 | HPEPDOC ---
[facility] Medical History & Physical Date of Admission Attending Physician: POPPY MORELAND MD History and Physical PRIMARY CARE PROVIDER: Dr. Pruitt CHIEF COMPLAINT: Cough HISTORY OF PRESENT ILLNESS: Patient is a 61-year-old female with past medical history significant for COPD, type 2 diabetes mellitus, post ablative hypothyroidism, hyperlipidemia who presents with a couple day history of nonproductive cough. Patient states that her cough started a couple days ago and has not been getting any better. She reports low oxygen saturation at home as she checks her own oxygen saturation. She is also complaining of headaches, chest discomfort secondary to coughing, not sleeping from cough. She is also having poor appetite, she does not have any interest in food. She states that nothing is making her symptoms better or worse but that she is just not getting better. ALLERGIES: Solu-Medrol: Makes her feel jittery PAST MEDICAL HISTORY: Type 2 diabetes mellitus, Graves' disease, post-ablative hypothyroidism, COPD, vitamin D deficiency, fatty liver, hyperlipidemia, neuropathy in legs bilaterally PAST SURGICAL HISTORY: Appendectomy, D&C, hernia repair, ventral hernia repair, tubal ligation, left breast lumpectomy SOCIAL HISTORY: Patient is a former smoker, she does not drink any alcohol, she does not use any recreational drugs FAMILY HISTORY: Noncontributory CODE STATUS: Full code REVIEW OF SYSTEMS: Constitutional: Positive for chills, denies fevers, sweats or weight changes HEENT: Head: Positive for headaches, denies dizziness or lightheadedness. Eyes: denies blurry vision, double vision. Ears: denies hearing loss, tinnitus, ear pain. Nose: denies sinus pain, pressure, rhinorrhea, postnasal drip. Throat: Positive for nonproductive cough, denies sore throat or difficulty swallowing Cardiovascular: denies chest discomfort/pain, palpitations Respiratory: Positive for shortness of breath Gastrointestinal: denies nausea, vomiting, diarrhea, constipation, abdominal pain, melena, hematochezia : denies dysuria, hematuria Musculoskeletal: Positive for right chest discomfort secondary to coughing, occasional chronic leg pain Neurological: denies numbness, tingling, paresthesias Lymphatics: denies palpable lymph nodes or swollen glands Integumentary: denies any cuts, rashes, bruises Endocrine: Positive for chronic polyuria PHYSICAL EXAMINATION: Vitals: Temperature 96.7, pulse 110 at rest, 114 with ambulation, respiratory rate 18, blood pressure 133/64, pulse ox 93% on 2 L nasal cannula at rest, 85% on 2 L nasal cannula with ambulation General: Patient seated comfortably, alert and oriented, verbal and able to answer questions appropriately. Patient does not appear to be in any acute distress HEENT: Head: normocephalic, atraumatic. Eyes: Positive for right ptosis, pupils equally reactive to light, conjunctiva are pink, sclera are nonicteric. Nose: turbinates nonswollen bilaterally. Ears: Left tympanic membrane bulging without erythema, light reflex present bilaterally. Throat: buccal mucosa is pink and moist with no lesions in the oropharynx Respiratory: Bilateral wheezes to auscultation, no rales or rhonchi Cardiovascular: Tachycardic with regular rhythm, no murmurs, rubs, clicks or gallops Abdomen: soft, nontender, nondistended, no hepatosplenomegaly appreciated. Bowel sounds present. Extremities: 5/5 strength in upper and lower extremities bilaterally, no swelling in either lower extremity bilaterally Neurological: sensation intact and symmetrical in upper and lower extremities bilaterally Lymphatics: no palpable lymph nodes, swollen glands Integumentary: skin free from rashes, lesions, abrasions Vascular: Radial pulses palpable bilaterally LABORATORY DATA: CBC: White blood cells 12.3, 77.2% neutrophils, 14.5% lymphocytes, 7.8% monocytes, hemoglobin and hematocrit 15.3/46.8, platelets 238 Chemistry: Sodium 140, potassium 4.4, chloride 102, CO2 32, BUN 16, creatinine 0.66, glucose 147, calcium 9.5 Lactic acid 1.0 Cardiac marker panel: Total creatinine kinase 58, CK-MB 1.0, troponin I <0.02 ABG: PH 7.411, PCO2 48, PO2 69.8, HCO3 29.9, oxygen saturation 94% MICROBOIOLOGY: Blood culture 2 pending, Flu A and B negative ELECTROCARDIOGRAM: Sinus rhythm at rate of 91 bpm RADIOLOGY: Chest x-ray: Hyperinflated lungs, COPD ASSESSMENT: 61-year-old female with acute hypoxemic respiratory failure secondary to COPD exacerbation. She will require admission for further treatment and monitoring PLAN: #1: Acute hypoxemic respiratory failure: Patient chronically uses 2 L of oxygen , oxygen saturation of 85% on 2 L with ambulation. Admit patient to [facility] under care of Dr. Moreland. Orders placed for prednisone 60 mg by mouth twice a day, DuoNeb scheduled every 6 hours, albuterol neb every 2 hours when necessary , we will repeat CBC tomorrow morning, order placed for sputum culture #2: COPD exacerbation: Likely viral, we will hold on antibiotics at this time but will monitor closely, if her conditions worsen we will initiate therapy with antibiotics #3: Type 2 diabetes mellitus: Patient will be given her home dose of metformin, we will hold glipizide as she has been not eating, order placed for sliding scale insulin #4: Dyslipidemia: Order placed for home dose of atorvastatin 80 mg by mouth daily #5: Hypothyroidism: Order placed for home dose of Synthroid 125 mcg daily #6: Lower extremity neuropathy: Order placed for home dose of gabapentin 300 mg by mouth daily at bedtime when necessary #7: DVT prophylaxis: Order placed for Lovenox 40 mg subcutaneously daily My preceptor for this patient encounter was physically present in the building during the encounter and was fully available. As needed, all aspects of the patient interview, examination, medical decision making process, and medical care plan development were reviewed and approved by the preceptor. Preceptor is aware and concurs with the plan as stated in the body of this note and will attest to such by his/her cosignature. Family Medicine Attending Note: I saw and examined Ms. Mae on the evening of 01/12/[address] Eric; we discussed her plan of care and I agree with his note as documented above. (KES) Home Medications Scheduled (Calcium/Vitamin D 500-200 mg-Unit) 1 Tab Tab, 1 TAB PO DAILY (Trulicity) 0.75 Mg/0.5 Ml Inj, 0.75 MG SC QWEEK SATURDAY Atorvastatin Calcium (Atorvastatin Calcium) 80 Mg Tab, 80 MG PO DAILY Budesonide/Formoterol (Symbicort 160-4.5 Mcg/Act) 60 Puff/Inhaler Aers, 2 PUFF INH BID Glyburide (Glyburide) 5 Mg Tab, 5 MG PO BID Levothyroxine Sodium (Synthroid) 125 Mcg Tab, 125 MCG PO DAILY Metformin Hydrochloride (Metformin HCl) 1,000 Mg Tab, 1,000 MG PO BID Vitamin D (Drisdol) 50,000 Unit Cap, 50,000 UNIT PO QWEEK SATURDAY MORNINGS Vitamin D (Vitamin D) 1,000 Unit Cap, 1,000 UNIT PO DAILY Scheduled PRN Albuterol Sulfate (Ventolin Hfa) 200 Puff/8 Gm Aers, 2 PUFF INH Q4H PRN for SHORTNESS OF BREATH Albuterol/Ipratropium (Ipratropium [place]/Albut 0.5-2.5 (3) mg/3Ml) 1 Elaine Elaine, 1 ELAINE NEB QID PRN for SHORTNESS OF BREATH Gabapentin (Gabapentin) 300 Mg Cap, 300 MG PO QHS PRN for PAIN Nystatin (Nystatin Powder) 100,000 Unit/Gm Pow, 1 DOSE TOP BID PRN for RASH PATIENTS APPLIES UNDER BREASTS Allergies Coded Allergies: No Known Drug Allergy (Unverified Allergy, Unknown, 05/19/12) BANDAR ERIC DO Jan 12, 2017 18:39 POPPY MORELAND MD Jan 13, 2017 10:37
[2017-01-12 19:00] VITALS: BP 129/60
[2017-01-12] MEDS: predniSONE 20 MG TAB PO SCH (21:07)
[2017-01-12] MEDS: HumaLOG INSULIN (NovoLOG) PER UNIT SC SCH (21:08)
[2017-01-12 21:46] LABS: MEAN CORPUSCULAR HEMOGLOBIN 30.6 pg (27.0-33.0); MEAN CORPUSCULAR HGB CONC 32.6 g/dl (32.0-36.5); MEAN CORPUSCULAR VOLUME 93.8 fl (80.0-96.0); PLATELET COUNT, AUTOMATED 208 10^3/uL (150-450); RED CELL DISTRIBUTION WIDTH 13.7 % (11.5-14.5); WHITE BLOOD COUNT 12.5 10^3/uL (4.0-10.0)
[2017-01-13] MEDS: LEVOTHYROXINE 125MCG TABLET (0.125MG) PO SCH (05:32)
[2017-01-13 06:00] VITALS: BP 119/68
[2017-01-13] MEDS: HumaLOG INSULIN (NovoLOG) PER UNIT SC SCH ×4 (07:20→20:48)
[2017-01-13] MEDS: metFORMIN (GLUCOPHAGE) 1000 MG TABLET PO SCH ×2 (07:20→17:25)
[2017-01-13] MEDS: IPRATROPIUM 0.5MG/ALBUTEROL 2.5MG INH SOL UD 3ML (DUONEB)(J7620) NEB SCH ×5 (08:29→23:34)
[2017-01-13] MEDS: ATORVASTATIN 20 MG TAB PO SCH (08:50)
[2017-01-13] MEDS: ENOXAPARIN 40 MG/0.4 ML SYRINGE (J1650) SC SCH (08:51)
[2017-01-13] MEDS: predniSONE 20 MG TAB PO SCH ×2 (08:51→20:44)
--- NOTE | 2017-01-13 13:20 | IPNPDOC ---
Subjective Date Seen The patient was seen on 01/13/17. Subjective Chief Complaint/HPI The patient is a 61-year-old female admitted with a reason for visit of Acute And Chronic Respiratory Failure W/Hypoxia. Events since last encounter Patient states breathing is a bit improved today, though she does not feel that she is back at her baseline. Constitutional: Denies: Chills, Fever Pulmonary: Reports: Dyspnea, Cough Cardiovascular: Denies: Chest Pain, Palpitations, Orthopnea, Lt Headedness Gastrointestinal: Denies: Nausea, Vomiting, Abdominal Pain, Diarrhea Psych: Reports: Mood Normal Objective Physical Examination General Exam: Positive: Alert, Cooperative, No Acute Distress ENT Exam: Positive: Atraumatic, Mucous membr. moist/pink Chest Exam: Positive: Wheezing (Diffuse expiratory wheezing), Diminished, Negative: Normal air movement Heart Exam: Positive: Rate Normal, Regular Rhythm, Normal S1, Normal S2 (heart sounds distant) Abdomen Exam: Positive: Normal bowel sounds, Soft, Negative: Tenderness Extremity Exam: Negative: Edema Psych Exam: Positive: Mental status NL, Mood NL, Oriented x 3 Assessment /Plan Problems (1) Acute and chronic respiratory failure with hypoxia Status: Acute Problem Text: Patient's O2 sat 90-91% on home O2 at rest, though she does c/o increased dyspnea with exertion. Lung exam slightly improved today in terms of air movement. - Continue prednisone 60 mg Q1H - Continue duonebs and albuterol - Sputum culture pending (2) COPD with acute exacerbation Status: Acute Problem Text: See plan for #1 above. (3) Diabetes type 2, uncontrolled Status: Chronic Response to Treatment: Stable Problem Text: Blood glucose uncontrolled, likely due to steroids - Continue home metformin; holding home glimepiride - Continue ISS coverage QACHS - Carb consistent diet Plan/VTE VTE Prophylaxis Ordered?: Yes Plan D/c home Saturday or Saturday once no longer hypoxic with ambulation and symptomatically improving VS, I&O, 24H, Fishbone Vital Signs/I&O Vital Signs Date Time Temp Pulse Resp B/P (MAP) Pulse Ox O2 Delivery O2 Flow Rate FiO2 01/13/17 07:28 Nasal Cannula 2.0 01/13/17 06:00 97.1 78 23 119/68 (85) 91 I&O- Last 24 Hours up to 6 AM 01/14/17 06:00 Intake Total 300 ml Output Total 0 ml Balance 300 ml Laboratory Data 24H LABS Laboratory Tests 2 01/12/17 15:33: Blood Gas Bicarbonate Standard 28.2H, Arterial Blood pH 7.411, Arterial Blood Partial Pressure CO2 48.1H, Arterial Blood Partial Pressure O2 69.8L, Arterial Blood Total CO2 31.3H, Arterial Blood HCO3 29.9H, Arterial Blood Base Excess 4.2H, Arterial Blood Oxygen Saturation 94.8L 01/12/17 15:39: Immature Granulocyte % (Auto) 0.2H, White Blood Count 12.3H, Red Blood Count 5.00, Hemoglobin 15.3, Hematocrit 46.8, Mean Corpuscular Volume 93.6, Mean Corpuscular Hemoglobin 30.6, Mean Corpuscular Hemoglobin Concent 32.7, Red Cell Distribution Width 13.8, Platelet Count 238, Neutrophils (%) (Auto) 77.2H, Lymphocytes (%) (Auto) 14.5L, Monocytes (%) (Auto) 7.8H, Eosinophils (%) (Auto) 0.1, Basophils (%) (Auto) 0.2, Neutrophils # (Auto) 9.5H, Lymphocytes # (Auto) 1.8, Monocytes # (Auto) 1.0H, Eosinophils # (Auto) 0.0, Basophils # (Auto) 0.0, Immature Granulocyte # (Auto) 0.0, Nucleated Red Blood Cells % (auto) 0.0, Anion Gap 6L, Glomerular Filtration Rate > 60.0, Lactic Acid Level 1.0, Blood Urea Nitrogen 16, Creatinine 0.66, Sodium Level 140, Potassium Level 4.4, Chloride Level 102, Carbon Dioxide Level 32, Calcium Level 9.5, Total Creatine Kinase 58, Creatine Kinase MB 1.0, Creatine Kinase MB Relative Index 1.72, Troponin I < 0.02 01/12/17 21:25: Nucleated Red Blood Cells % (auto) 0.0 01/13/17 07:15: Bedside Glucose (Misc Panel) 218H 01/13/17 12:00: Bedside Glucose (Misc Panel) 185H CBC/BMP Laboratory Tests 01/12/17 15:39 Red Blood Count 5.00, Mean Corpuscular Volume 93.6, Mean Corpuscular Hemoglobin 30.6, Mean Corpuscular Hemoglobin Concent 32.7, Red Cell Distribution Width 13.8 , Neutrophils (%) (Auto) 77.2 H, Lymphocytes (%) (Auto) 14.5 L, Monocytes (%) ( Auto) 7.8 H, Eosinophils (%) (Auto) 0.1, Basophils (%) (Auto) 0.2, Neutrophils # (Auto) 9.5 H, Lymphocytes # (Auto) 1.8, Monocytes # (Auto) 1.0 H, Eosinophils # (Auto) 0.0, Basophils # (Auto) 0.0, Calcium Level 9.5, Total Creatine Kinase 58 01/12/17 21:25 Red Blood Count 4.48, Mean Corpuscular Volume 93.8, Mean Corpuscular Hemoglobin 30.6, Mean Corpuscular Hemoglobin Concent 32.6, Red Cell Distribution Width 13.7 Microbiology Microbiology 01/12/17 Blood Culture, Received Pending 01/12/17 Blood Culture, Received Pending 01/12/17 Gram Stain - Final, Resulted 01/12/17 Sputum Culture, Resulted Pending 01/12/17 Influenza Virus Type A Antigen - Final, Complete 01/12/17 Influenza Virus Type B Antigen - Final, Complete POPPY STAFFORD MD Jan 13, 2017 13:20
[2017-01-13 14:00] VITALS: BP 109/53
[2017-01-13 22:00] VITALS: BP 105/53
[2017-01-14] MEDS: CALCIUM CARBONATE 500 MG CHEW U/D PO PRN (01:37)
[2017-01-14] MEDS: LEVOTHYROXINE 125MCG TABLET (0.125MG) PO SCH (05:37)
[2017-01-14 06:00] VITALS: BP 117/68
[2017-01-14] MEDS: IPRATROPIUM 0.5MG/ALBUTEROL 2.5MG INH SOL UD 3ML (DUONEB)(J7620) NEB SCH ×3 (07:05→19:56)
[2017-01-14] MEDS: HumaLOG INSULIN (NovoLOG) PER UNIT SC SCH ×4 (09:02→21:51)
[2017-01-14] MEDS: ENOXAPARIN 40 MG/0.4 ML SYRINGE (J1650) SC SCH (09:02)
[2017-01-14] MEDS: ATORVASTATIN 20 MG TAB PO SCH (09:02)
[2017-01-14] MEDS: predniSONE 20 MG TAB PO SCH ×2 (09:03→21:50)
[2017-01-14] MEDS: metFORMIN (GLUCOPHAGE) 1000 MG TABLET PO SCH ×2 (09:03→17:35)
[2017-01-14] MEDS ORDERED: cefTRIAXone SOD 1 GM VIAL (J0696) IV SCH (12:00)
[2017-01-14] MEDS ORDERED: cefTRIAXone SOD 1 GM VIAL (J0696) IM SCH (12:00)
[2017-01-14 14:00] VITALS: BP 117/60
[2017-01-14] MEDS: CEFTRIAXONE SOD 1 GM in APPROPRIATE DILUENT 1 EA IV SCH (14:23)
--- NOTE | 2017-01-14 14:43 | IPNPDOC ---
Subjective Date Seen The patient was seen on 01/14/17. Subjective Chief Complaint/HPI The patient is a 61-year-old female admitted with a reason for visit of Acute And Chronic Respiratory Failure W/Hypoxia. Events since last encounter Patient reports that she is breathing a little better, her cough is not getting any better. She is continuing to have sweats and left anterior chest pain from coughing. Constitutional: Reports: Other (sweats), Denies: Chills, Fever Pulmonary: Reports: Dyspnea (improving) Musculoskeletal: Reports: Other Symptoms (left chest pain (from coughing)) Objective Physical Examination General Exam: Positive: Alert, Cooperative, No Acute Distress Chest Exam: Positive: Wheezing (Diffuse expiratory wheezing), Diminished, Negative: Normal air movement Heart Exam: Positive: Rate Normal, Regular Rhythm, Normal S1, Normal S2 Abdomen Exam: Positive: Normal bowel sounds, Soft, Negative: Tenderness Extremity Exam: Negative: Edema Assessment /Plan Problems (1) Acute and chronic respiratory failure with hypoxia Status: Acute Problem Text: 01/14: sputum culture grew Strep. pneumoniae, order placed for ceftriaxone 1 g IV every 24 hours. We will continue to monitor. She ambulated 208ft, but dropped her stats to 85%. 01/13: Patient's O2 sat 90-91% on home O2 at rest, though she does c/o increased dyspnea with exertion. Lung exam slightly improved today in terms of air movement. - Continue prednisone 60 mg Q1H - Continue duonebs and albuterol - Sputum culture pending (2) COPD with acute exacerbation Status: Acute Problem Text: See plan for #1 above. (3) Diabetes type 2, uncontrolled Status: Chronic Response to Treatment: Stable Problem Text: Blood glucose uncontrolled, likely due to steroids - Continue home metformin; holding home glimepiride - Continue ISS coverage QACHS - Carb consistent diet Plan/VTE VTE Prophylaxis Ordered?: Yes Disposition She'll be able to be discharged when she is able to ambulate and maintain oxygen saturation greater than 88% on home dose of 2 L nasal cannula VS, I&O, 24H, Fishbone Vital Signs/I&O Vital Signs Date Time Temp Pulse Resp B/P (MAP) Pulse Ox O2 Delivery O2 Flow Rate FiO2 01/14/17 11:50 Nasal Cannula 2.0 85 01/14/17 06:00 96.8 80 20 117/68 (84) 93 I&O- Last 24 Hours up to 6 AM 01/15/17 06:00 Intake Total 240 ml Balance 240 ml Laboratory Data 24H LABS Laboratory Tests 2 01/13/17 17:02: Bedside Glucose (Misc Panel) 295H 01/13/17 20:31: Bedside Glucose (Misc Panel) 244H 01/14/17 06:12: Bedside Glucose (Misc Panel) 287H 01/14/17 11:58: Bedside Glucose (Misc Panel) 288H Microbiology Microbiology 01/12/17 Blood Culture - Preliminary, Resulted No growth after 24 hours . All specim... 01/12/17 Blood Culture - Preliminary, Resulted No growth after 24 hours . All specim... 01/12/17 Gram Stain - Final, Resulted 01/12/17 Sputum Culture - Preliminary, Resulted Streptococcus Pneumoniae 01/12/17 Influenza Virus Type A Antigen - Final, Complete 01/12/17 Influenza Virus Type B Antigen - Final, Complete GME ATTESTATION GME ATTESTATION My faculty preceptor for this patient encounter was physically present during the encounter and was fully available. All aspects of the patient interview, examination, medical decision making process, and medical care plan development were reviewed and approved by the faculty preceptor. The faculty preceptor is aware and concurs with the plan as stated in the body of this note and will attest to such by his/her cosignature. BANDAR OROSCO DO Jan 14, 2017 14:43
[2017-01-14 22:00] VITALS: BP 123/61
[2017-01-15] MEDS: IPRATROPIUM 0.5MG/ALBUTEROL 2.5MG INH SOL UD 3ML (DUONEB)(J7620) NEB SCH ×4 (00:42→20:25)
[2017-01-15 06:00] VITALS: BP 110/61
[2017-01-15] MEDS: LEVOTHYROXINE 125MCG TABLET (0.125MG) PO SCH (06:09)
[2017-01-15] MEDS: metFORMIN (GLUCOPHAGE) 1000 MG TABLET PO SCH ×2 (07:52→17:45)
[2017-01-15] MEDS: HumaLOG INSULIN (NovoLOG) PER UNIT SC SCH ×4 (07:52→21:46)
[2017-01-15] MEDS: ATORVASTATIN 20 MG TAB PO SCH (08:41)
[2017-01-15] MEDS: predniSONE 20 MG TAB PO SCH ×2 (08:41→21:47)
[2017-01-15] MEDS: ENOXAPARIN 40 MG/0.4 ML SYRINGE (J1650) SC SCH (08:42)
--- NOTE | 2017-01-15 10:06 | IPNPDOC ---
Subjective Date Seen The patient was seen on 01/15/17. Subjective Chief Complaint/HPI The patient is a 61-year-old female admitted with a reason for visit of Acute And Chronic Respiratory Failure W/Hypoxia. Events since last encounter breathing slightly improved today, but not at baseline. Still with cough Constitutional: Denies: Chills, Fever Pulmonary: Reports: Dyspnea, Cough Cardiovascular: Denies: Chest Pain, Palpitations Gastrointestinal: Denies: Nausea, Vomiting, Abdominal Pain, Diarrhea, Constipation Objective Physical Examination General Exam: Positive: Alert, Cooperative, No Acute Distress Chest Exam: Positive: Clear to auscultation, Wheezing (wheezes clear with cough ), Diminished, Negative: Normal air movement Heart Exam: Positive: Rate Normal, Regular Rhythm, Normal S1, Normal S2 Abdomen Exam: Positive: Normal bowel sounds, Soft, Negative: Tenderness Extremity Exam: Negative: Edema Assessment /Plan Problems (1) Acute and chronic respiratory failure with hypoxia Status: Acute Problem Text: 01/15 - Mainatingin sats on NC cont Rocephin Add Is Encourage ambulation (nurse aware) 01/14: sputum culture grew Strep. pneumoniae, order placed for ceftriaxone 1 g IV every 24 hours. We will continue to monitor. She ambulated 208ft, but dropped her stats to 85%. 01/13: Patient's O2 sat 90-91% on home O2 at rest, though she does c/o increased dyspnea with exertion. Lung exam slightly improved today in terms of air movement. - Continue prednisone 60 mg Q1H - Continue duonebs and albuterol - Sputum culture pending (2) COPD with acute exacerbation Status: Acute Problem Text: See plan for #1 above. (3) Diabetes type 2, uncontrolled Status: Chronic Response to Treatment: Stable Problem Text: 01/15 - Blood sugars high secondary to steroids. restart home Glyburide cont Metformin and SSI coverage Blood glucose uncontrolled, likely due to steroids - Continue home metformin; holding home glimepiride - Continue ISS coverage QACHS - Carb consistent diet Plan/VTE VTE Prophylaxis Ordered?: Yes (Lovenox) VS, I&O, 24H, Fishbone Vital Signs/I&O Vital Signs Date Time Temp Pulse Resp B/P (MAP) Pulse Ox O2 Delivery O2 Flow Rate FiO2 01/15/17 06:00 97.0 72 19 110/61 (77) 93 Nasal Cannula 2.0 01/14/17 11:50 85 Laboratory Data 24H LABS Laboratory Tests 2 01/14/17 11:58: Bedside Glucose (Misc Panel) 288H 01/14/17 16:54: Bedside Glucose (Misc Panel) 251H 01/14/17 20:36: Bedside Glucose (Misc Panel) 280H 01/15/17 06:53: Bedside Glucose (Misc Panel) 298H Microbiology Microbiology 01/12/17 Blood Culture - Preliminary, Resulted No Growth after 48 hours. All Specime... 01/12/17 Blood Culture - Preliminary, Resulted No Growth after 48 hours. All Specime... 01/14/17 Gastrointestinal Tract Panel (PCR) - Final, Complete 01/12/17 Gram Stain - Final, Complete 01/12/17 Sputum Culture - Final, Complete Streptococcus Pneumoniae 01/12/17 Influenza Virus Type A Antigen - Final, Complete 01/12/17 Influenza Virus Type B Antigen - Final, Complete ALBIN ZIMMERMAN PA-C Jan 15, 2017 10:06
[2017-01-15] MEDS: CEFTRIAXONE SOD 1 GM in APPROPRIATE DILUENT 1 EA IV SCH (12:18)
[2017-01-15 14:00] VITALS: BP 147/70
[2017-01-15] MEDS: glyBURIDE 5 MG TAB PO SCH (18:34)
[2017-01-15 19:01] LABS: MEAN CORPUSCULAR HEMOGLOBIN 29.9 pg (27.0-33.0); MEAN CORPUSCULAR HGB CONC 32.6 g/dl (32.0-36.5); MEAN CORPUSCULAR VOLUME 91.7 fl (80.0-96.0); PLATELET COUNT, AUTOMATED 286 10^3/uL (150-450); RED CELL DISTRIBUTION WIDTH 13.2 % (11.5-14.5); WHITE BLOOD COUNT 12.5 10^3/uL (4.0-10.0)
[2017-01-15 22:00] VITALS: BP 141/74
[2017-01-16] MEDS: CALCIUM CARBONATE 500 MG CHEW U/D PO PRN ×2 (01:21→19:52)
[2017-01-16] MEDS: IPRATROPIUM 0.5MG/ALBUTEROL 2.5MG INH SOL UD 3ML (DUONEB)(J7620) NEB SCH ×4 (03:06→21:01)
[2017-01-16] MEDS: LEVOTHYROXINE 125MCG TABLET (0.125MG) PO SCH (05:45)
[2017-01-16 06:00] VITALS: BP 133/75
[2017-01-16 06:37] LABS: MEAN CORPUSCULAR HEMOGLOBIN 30.3 pg (27.0-33.0); MEAN CORPUSCULAR HGB CONC 33.1 g/dl (32.0-36.5); MEAN CORPUSCULAR VOLUME 91.6 fl (80.0-96.0); PLATELET COUNT, AUTOMATED 287 10^3/uL (150-450); RED CELL DISTRIBUTION WIDTH 13.2 % (11.5-14.5); WHITE BLOOD COUNT 12.8 10^3/uL (4.0-10.0)
[2017-01-16 06:56] LABS: ALBUMIN 2.8 GM/DL (3.2-5.2); ALBUMIN/GLOBULIN RATIO 0.64 (1.00-1.93); ALKALINE PHOSPHATASE 96 U/L (45-117); ALT/SGPT 27 U/L (12-78); ANION GAP 8 MEQ/L (8-16); AST/SGOT 15 U/L (7-37); BILIRUBIN,TOTAL 0.2 MG/DL (0.2-1.0); BLOOD UREA NITROGEN 26 MG/DL (7-18); CALCIUM LEVEL 9.1 MG/DL (8.8-10.2); CARBON DIOXIDE LEVEL 31 MEQ/L (21-32); CHLORIDE LEVEL 101 MEQ/L (98-107); CREATININE FOR GFR 0.88 MG/DL (0.55-1.02); GLOMERULAR FILTRATION RATE > 60.0 (>45); GLUCOSE, FASTING 293 MG/DL (80-110); POTASSIUM SERUM 4.6 MEQ/L (3.5-5.1); SODIUM LEVEL 140 MEQ/L (136-145); TOTAL PROTEIN 7.2 GM/DL (6.4-8.2)
--- NOTE | 2017-01-16 09:15 | IPNPDOC ---
Subjective Date Seen The patient was seen on 01/16/17. Subjective Chief Complaint/HPI The patient is a 61-year-old female admitted with a reason for visit of Acute And Chronic Respiratory Failure W/Hypoxia. Events since last encounter breathing has improved some but still coughing copious amount of white phlegm. having diarrhea - this is not unusual for her. At home she takes anti- diarrheal 2 - 3 times a week for at least a year. Constitutional: Denies: Chills, Fever Pulmonary: Reports: Dyspnea, Cough Cardiovascular: Denies: Chest Pain, Palpitations, Orthopnea Gastrointestinal: Reports: Diarrhea, Denies: Nausea, Vomiting, Abdominal Pain, Constipation Objective Physical Examination General Exam: Positive: Alert, Cooperative, No Acute Distress Chest Exam: Positive: Clear to auscultation, Diminished, Negative: Normal air movement, Wheezing (No wheezes on exam today) Heart Exam: Positive: Rate Normal, Regular Rhythm, Normal S1, Normal S2 Abdomen Exam: Positive: Normal bowel sounds, Soft, Negative: Tenderness Extremity Exam: Negative: Edema Assessment /Plan Problems (1) Acute and chronic respiratory failure with hypoxia Status: Acute Problem Text: 01/16 - CXR showed COPD on admission. sputum culture grew Strep. pneumoniae. B/C neg Resp status improving cont Rocephin Encourage ambulation (nurse aware) -Decrease Prednisone to 20 BID -cont duonebs (2) COPD with acute exacerbation Status: Acute Problem Text: See plan for #1 above. (3) Diabetes type 2, uncontrolled Status: Chronic Response to Treatment: Stable Problem Text: Blood sugars high secondary to steroids - decreasing prednisone dose today cont. Glyburide cont Metformin and SSI coverage (4) Diarrhea Status: Chronic Problem Text: GI panel negative Diarrhea is chronic per patient - occurs 2 - 3 times a week. Order Imodium prn Plan/VTE VTE Prophylaxis Ordered?: Yes (Lovenox) VS, I&O, 24H, Fishbone Vital Signs/I&O Vital Signs Date Time Temp Pulse Resp B/P (MAP) Pulse Ox O2 Delivery O2 Flow Rate FiO2 01/16/17 06:00 96.3 90 19 133/75 (94) 93 Nasal Cannula 2.0 01/15/17 10:00 88 Laboratory Data 24H LABS Laboratory Tests 2 01/15/17 11:43: Bedside Glucose (Misc Panel) 313H 01/15/17 16:37: Bedside Glucose (Misc Panel) 400H 01/15/17 18:18: Nucleated Red Blood Cells % (auto) 0.0 01/15/17 20:17: Bedside Glucose (Misc Panel) 284H 01/16/17 05:56: Nucleated Red Blood Cells % (auto) 0.0, Anion Gap 8, Glomerular Filtration Rate > 60.0, Blood Urea Nitrogen 26H, Creatinine 0.88, Sodium Level 140, Potassium Level 4.6, Chloride Level 101, Carbon Dioxide Level 31, Calcium Level 9.1, Aspartate Amino Transf (AST/SGOT) 15, Alanine Aminotransferase (ALT/SGPT) 27, Alkaline Phosphatase 96, Total Bilirubin 0.2, Total Protein 7.2, Albumin 2.8L, Albumin/Globulin Ratio 0.64L CBC/BMP Laboratory Tests 01/15/17 18:18 Red Blood Count 4.48, Mean Corpuscular Volume 91.7, Mean Corpuscular Hemoglobin 29.9, Mean Corpuscular Hemoglobin Concent 32.6, Red Cell Distribution Width 13.2 01/16/17 05:56 Red Blood Count 4.75, Mean Corpuscular Volume 91.6, Mean Corpuscular Hemoglobin 30.3, Mean Corpuscular Hemoglobin Concent 33.1, Red Cell Distribution Width 13.2 , Calcium Level 9.1, Aspartate Amino Transf (AST/SGOT) 15, Alanine Aminotransferase (ALT/SGPT) 27, Alkaline Phosphatase 96, Total Bilirubin 0.2, Total Protein 7.2, Albumin 2.8 L Microbiology Microbiology 01/12/17 Blood Culture - Preliminary, Resulted No Growth after 72 hours. All specime... 01/12/17 Blood Culture - Preliminary, Resulted No Growth after 72 hours. All specime... 01/14/17 Gastrointestinal Tract Panel (PCR) - Final, Complete 01/12/17 Gram Stain - Final, Complete 01/12/17 Sputum Culture - Final, Complete Streptococcus Pneumoniae 01/12/17 Influenza Virus Type A Antigen - Final, Complete 01/12/17 Influenza Virus Type B Antigen - Final, Complete ALBIN ZIMMERMAN PA-C Jan 16, 2017 09:15
[2017-01-16] MEDS: metFORMIN (GLUCOPHAGE) 1000 MG TABLET PO SCH ×2 (09:27→18:00)
[2017-01-16] MEDS: glyBURIDE 5 MG TAB PO SCH ×2 (09:28→18:00)
[2017-01-16] MEDS: ATORVASTATIN 20 MG TAB PO SCH (09:28)
[2017-01-16] MEDS: HumaLOG INSULIN (NovoLOG) PER UNIT SC SCH ×4 (09:28→21:00)
[2017-01-16] MEDS: ENOXAPARIN 40 MG/0.4 ML SYRINGE (J1650) SC SCH (09:29)
[2017-01-16] MEDS: predniSONE 20 MG TAB PO SCH ×2 (12:35→19:52)
[2017-01-16] MEDS: CEFTRIAXONE SOD 1 GM in APPROPRIATE DILUENT 1 EA IV SCH (12:36)
[2017-01-16] MEDS: LOPERAMIDE 2 MG CAP PO PRN ×2 (13:40→23:24)
[2017-01-16 14:00] VITALS: BP 120/60
[2017-01-16 18:00] VITALS: BP 149/65
[2017-01-16 22:00] VITALS: BP 122/62
[2017-01-17] MEDS: IPRATROPIUM 0.5MG/ALBUTEROL 2.5MG INH SOL UD 3ML (DUONEB)(J7620) NEB SCH ×4 (00:42→20:59)
[2017-01-17 06:00] VITALS: BP 114/63
[2017-01-17] MEDS: LEVOTHYROXINE 125MCG TABLET (0.125MG) PO SCH (06:19)
[2017-01-17 07:31] LABS: MEAN CORPUSCULAR HEMOGLOBIN 30.4 pg (27.0-33.0); MEAN CORPUSCULAR HGB CONC 33.1 g/dl (32.0-36.5); MEAN CORPUSCULAR VOLUME 91.8 fl (80.0-96.0); PLATELET COUNT, AUTOMATED 306 10^3/uL (150-450); RED CELL DISTRIBUTION WIDTH 13.2 % (11.5-14.5); WHITE BLOOD COUNT 14.9 10^3/uL (4.0-10.0)
[2017-01-17 07:48] LABS: ALBUMIN 2.7 GM/DL (3.2-5.2); ALBUMIN/GLOBULIN RATIO 0.66 (1.00-1.93); ALKALINE PHOSPHATASE 84 U/L (45-117); ALT/SGPT 35 U/L (12-78); ANION GAP 7 MEQ/L (8-16); AST/SGOT 36 U/L (7-37); BILIRUBIN,TOTAL 0.3 MG/DL (0.2-1.0); BLOOD UREA NITROGEN 31 MG/DL (7-18); CALCIUM LEVEL 8.9 MG/DL (8.8-10.2); CARBON DIOXIDE LEVEL 33 MEQ/L (21-32); CHLORIDE LEVEL 102 MEQ/L (98-107); CREATININE FOR GFR 0.81 MG/DL (0.55-1.02); GLOMERULAR FILTRATION RATE > 60.0 (>45); GLUCOSE, FASTING 185 MG/DL (80-110); POTASSIUM SERUM 4.6 MEQ/L (3.5-5.1); SODIUM LEVEL 142 MEQ/L (136-145); TOTAL PROTEIN 6.8 GM/DL (6.4-8.2)
[2017-01-17] MEDS: ATORVASTATIN 20 MG TAB PO SCH (09:04)
[2017-01-17] MEDS: HumaLOG INSULIN (NovoLOG) PER UNIT SC SCH (09:04)
[2017-01-17] MEDS: ENOXAPARIN 40 MG/0.4 ML SYRINGE (J1650) SC SCH (09:05)
[2017-01-17] MEDS: metFORMIN (GLUCOPHAGE) 1000 MG TABLET PO SCH ×2 (09:05→17:52)
[2017-01-17] MEDS: predniSONE 20 MG TAB PO SCH ×2 (09:05→20:02)
[2017-01-17] MEDS: glyBURIDE 5 MG TAB PO SCH ×2 (09:05→17:53)
--- NOTE | 2017-01-17 11:19 | IPNPDOC ---
Subjective Date Seen The patient was seen on 01/17/17. Subjective Chief Complaint/HPI The patient is a 61-year-old female admitted with a reason for visit of Acute And Chronic Respiratory Failure W/Hypoxia. Events since last encounter Breathing improving. Cough less productive. Stillhaving diarrhea about 3 times a day watery associated with crampy abd pain. no f/c or n/v Constitutional: Denies: Chills, Fever Pulmonary: Reports: Dyspnea, Cough Cardiovascular: Denies: Chest Pain, Palpitations Gastrointestinal: Reports: Abdominal Pain (imtermittnet releived with BM), Diarrhea, Denies: Nausea, Vomiting, Constipation Objective Physical Examination General Exam: Positive: Alert, Cooperative, No Acute Distress Chest Exam: Positive: Clear to auscultation, Diminished, Negative: Normal air movement, Rales, Rhonchi, Wheezing Heart Exam: Positive: Rate Normal, Regular Rhythm, Normal S1, Normal S2 Abdomen Exam: Positive: Normal bowel sounds, Soft, Negative: Tenderness Extremity Exam: Negative: Edema Assessment /Plan Problems (1) Acute and chronic respiratory failure with hypoxia Status: Acute Problem Text: 01/17 - Clinically improving Switch to oral Ceftin cont Prednisone 20 BID cont nebs 01/16 - CXR showed COPD on admission. sputum culture grew Strep. pneumoniae. B/ C neg Resp status improving cont Rocephin Encourage ambulation (nurse aware) (2) COPD with acute exacerbation Status: Acute Problem Text: See plan for #1 above. (3) Diabetes type 2, uncontrolled Status: Chronic Response to Treatment: Stable Problem Text: 01/17 Blood sugars high secondary to steroids but improving with decrease prednisone dose yesterday cont. Glyburide cont Metformin a D/C SSI (4) Diarrhea Status: Chronic Problem Text: 01/17 - still having watery diarrhea preceded by crampy abd pain. Stool watery. Abd non-tender currently. No fever Switch to oral abx Add probiotic Repeat GI panel if diarrhea persists. GI panel negative she has some chronic per patient - occurs 2 - 3 times a week at baseline cont Imodium prn Plan/VTE VTE Prophylaxis Ordered?: Yes (Lovenox) VS, I&O, 24H, Fishbone Vital Signs/I&O Vital Signs Date Time Temp Pulse Resp B/P (MAP) Pulse Ox O2 Delivery O2 Flow Rate FiO2 01/17/17 06:00 97.3 85 20 114/63 (80) 96 Nasal Cannula 2.0 01/15/17 10:00 88 Laboratory Data 24H LABS Laboratory Tests 2 01/16/17 11:35: Bedside Glucose (Misc Panel) 340H 01/16/17 17:12: Bedside Glucose (Misc Panel) 87 01/16/17 19:49: Bedside Glucose (Misc Panel) 166H 01/17/17 06:12: Nucleated Red Blood Cells % (auto) 0.0, Anion Gap 7L, Glomerular Filtration Rate > 60.0, Blood Urea Nitrogen 31H, Creatinine 0.81, Sodium Level 142, Potassium Level 4.6, Chloride Level 102, Carbon Dioxide Level 33H, Calcium Level 8.9, Aspartate Amino Transf (AST/SGOT) 36, Alanine Aminotransferase (ALT/ SGPT) 35, Alkaline Phosphatase 84, Total Bilirubin 0.3, Total Protein 6.8, Albumin 2.7L, Albumin/Globulin Ratio 0.66L 01/17/17 07:15: Bedside Glucose (Misc Panel) 203H CBC/BMP Laboratory Tests 01/17/17 06:12 Red Blood Count 5.10, Mean Corpuscular Volume 91.8, Mean Corpuscular Hemoglobin 30.4, Mean Corpuscular Hemoglobin Concent 33.1, Red Cell Distribution Width 13.2 , Calcium Level 8.9, Aspartate Amino Transf (AST/SGOT) 36, Alanine Aminotransferase (ALT/SGPT) 35, Alkaline Phosphatase 84, Total Bilirubin 0.3, Total Protein 6.8, Albumin 2.7 L Microbiology Microbiology 01/12/17 Blood Culture - Preliminary, Resulted No Growth after 72 hours. All specime... 01/12/17 Blood Culture - Preliminary, Resulted No Growth after 72 hours. All specime... 01/14/17 Gastrointestinal Tract Panel (PCR) - Final, Complete 01/12/17 Gram Stain - Final, Complete 01/12/17 Sputum Culture - Final, Complete Streptococcus Pneumoniae 01/12/17 Influenza Virus Type A Antigen - Final, Complete 01/12/17 Influenza Virus Type B Antigen - Final, Complete ALBIN ZIMMERMAN PA-C Jan 17, 2017 11:19
[2017-01-17 14:00] VITALS: BP 117/64
[2017-01-17] MEDS: CEFUROXIME 500 MG TAB PO SCH ×2 (14:17→20:02)
[2017-01-17] MEDS: LACTOBACILLUS ACIDOPHILUS CAP (BACID) PO SCH ×2 (14:18→20:02)
[2017-01-17] MEDS: LOPERAMIDE 2 MG CAP PO PRN (20:02)
[2017-01-17 21:25] VITALS: BP 118/67
[2017-01-18] MEDS: IPRATROPIUM 0.5MG/ALBUTEROL 2.5MG INH SOL UD 3ML (DUONEB)(J7620) NEB SCH ×3 (01:18→13:22)
[2017-01-18 04:55] VITALS: BP 103/59
[2017-01-18] MEDS: LEVOTHYROXINE 125MCG TABLET (0.125MG) PO SCH (05:46)
[2017-01-18 06:01] LABS: MEAN CORPUSCULAR HEMOGLOBIN 30.2 pg (27.0-33.0); MEAN CORPUSCULAR HGB CONC 32.9 g/dl (32.0-36.5); MEAN CORPUSCULAR VOLUME 91.8 fl (80.0-96.0); PLATELET COUNT, AUTOMATED 352 10^3/uL (150-450); RED CELL DISTRIBUTION WIDTH 13.2 % (11.5-14.5); WHITE BLOOD COUNT 16.3 10^3/uL (4.0-10.0)
[2017-01-18 06:16] LABS: ALBUMIN 2.9 GM/DL (3.2-5.2); ALBUMIN/GLOBULIN RATIO 0.73 (1.00-1.93); ALKALINE PHOSPHATASE 100 U/L (45-117); ALT/SGPT 36 U/L (12-78); ANION GAP 8 MEQ/L (8-16); AST/SGOT 17 U/L (7-37); BILIRUBIN,TOTAL 0.3 MG/DL (0.2-1.0); BLOOD UREA NITROGEN 30 MG/DL (7-18); CALCIUM LEVEL 8.7 MG/DL (8.8-10.2); CARBON DIOXIDE LEVEL 27 MEQ/L (21-32); CHLORIDE LEVEL 103 MEQ/L (98-107); CREATININE FOR GFR 0.89 MG/DL (0.55-1.02); GLOMERULAR FILTRATION RATE > 60.0 (>45); GLUCOSE, FASTING 253 MG/DL (80-110); POTASSIUM SERUM 4.7 MEQ/L (3.5-5.1); SODIUM LEVEL 138 MEQ/L (136-145); TOTAL PROTEIN 6.9 GM/DL (6.4-8.2)
[2017-01-18 07:27] VITALS: O2SAT 95
[2017-01-18] MEDS: predniSONE 20 MG TAB PO SCH (09:23)
[2017-01-18] MEDS: metFORMIN (GLUCOPHAGE) 1000 MG TABLET PO SCH (09:23)
[2017-01-18] MEDS: LACTOBACILLUS ACIDOPHILUS CAP (BACID) PO SCH (09:24)
[2017-01-18] MEDS: CEFUROXIME 500 MG TAB PO SCH (09:24)
[2017-01-18] MEDS: ATORVASTATIN 20 MG TAB PO SCH (09:24)
[2017-01-18] MEDS: ENOXAPARIN 40 MG/0.4 ML SYRINGE (J1650) SC SCH (09:24)
[2017-01-18] MEDS: glyBURIDE 5 MG TAB PO SCH (09:24)
[2017-01-18] MEDS ORDERED: CEFT500T3 PO (12:22)
[2017-01-18] MEDS ORDERED: PRED20TA PO (12:22)
[2017-01-18] MEDS ORDERED: RISATAB3 PO (12:22)
[2017-01-18 14:00] VITALS: BP 116/59
--- NOTE | 2017-01-19 16:16 | DSES ---
DATE OF ADMISSION: 01/12/2017 DATE OF DISCHARGE: 01/18/2017 BRIEF HISTORY AND PHYSICAL: The patient is a 61-year-old patient of Dr. Arnett who presented with cough. Her oxygen levels at home were low, and she was having chest discomfort related to the cough and having copious sputum production with poor appetite. PAST MEDICAL HISTORY: Significant for: 1. Chronic obstructive pulmonary disease (COPD), oxygen dependent. 2. Diabetes mellitus, type 2. 3. Postablative hypothyroidism. 4. Hyperlipidemia. PERTINENT LABORATORIES ON ADMISSION: White count 12, hemoglobin 15, platelets 238,000. Sodium 140, potassium 4.4, BUN 16, creatinine 0.6, glucose 147. CRP and troponin were negative. ABG showed a pH of 7.4, pCO2 of 48, pO2 of 69, oxygen saturation 94%. Chest x-ray showed hyperinflated lungs with COPD. HOSPITAL COURSE: 1. The patient was admitted for hypoxemia secondary to acute on chronic respiratory failure and COPD exacerbation. Her oxygen saturations were 85% on 2 liters nasal cannula on admission. She was placed on high-dose oral prednisone. She becomes very jittery on Solu-Medrol. Nebulized bronchodilators and intravenous (IV) Rocephin as well as nasal cannula. Her sputum culture grew Streptococcus pneumoniae. Blood cultures were negative. Flu screen was negative. Respiratory status gradually improved. She is maintaining her oxygen saturation in the mid 90s on 2 liters of nasal cannula, ambulating well without significant dyspnea. Her cough is improving. White count is little higher, but I feel this is likely related to the prednisone, and she feels stable for discharge home. She will be discharged on Ceftin 500 mg twice a day with Bacid twice a day as well and prednisone 20 mg daily for two more days. 2. Diabetes mellitus, type 2. Her medications were held initially, but her blood sugars were high secondary to the steroids. She was restarted on her glyburide and metformin. She can go home on her usual regimen, which includes Trulicity. 4. Diarrhea. The patient was developing fairly frequent diarrhea in the hospital. Gastrointestinal (GI) panel was negative. We switched her over to the oral antibiotic. Her diarrhea seems to have improved, and probiotics have been ordered as well. She does have problems with chronic diarrhea at baseline, usually requiring Imodium two to three times a week and has had this worked up with GI in the past. Will defer further workup to her primary care physician (PCP) if this persists as an outpatient, but at this point she has not had any diarrhea today or abdominal pain. No fever, and she is eating well and would like to go home. DISPOSITION: The patient is stable for discharge. Followup with Dr. Pruitt in 1 week. DIET: Consistent carbohydrate. ACTIVITY: as tolerated. Oxygen 2 liters nasal cannula. MEDICATIONS: - Ceftin 500 mg twice a day for 3 more days - prednisone 20 mg daily for 2 more days - probiotics two tablets twice a day for a month - albuterol ipratropium nebulizer four times a day - atorvastatin 80 mg daily - budesonide 160/4.5 two puffs twice a day - calcium plus D one tablet daily - gabapentin 300 mg at bedtime - glyburide 5 mg twice a day - levothyroxine 125 mcg daily - metformin 1000 mg twice a day - nystatin topically to the rash twice a daily - Trulicity 0.75 mg subcutaneous weekly - vitamin D 50,000 international units weekly DISCHARGE DIAGNOSES: 1. Acute on chronic respiratory failure. 2. Chronic obstructive pulmonary disease exacerbation. 3. Streptococcus pneumoniae positive sputum 4. Diarrhea. 5. She has diabetes, type 2.
== END 2017-01-18 13:59 | disposition home or self-care (01) | DRG 140 ==
LOC: M ED 13:56 → M ED INP 18:12 → M MSPAV 18:55
PROVIDERS: ADMIT Family Medicine; ATTEND Family Medicine
DX: J44.1 Chronic obstructive pulmonary disease with (acute) exacerbation (principal); J96.21 Acute and chronic respiratory failure with hypoxia; E11.40 Type 2 diabetes mellitus with diabetic neuropathy, unspecified; B95.3 Streptococcus pneumoniae as the cause of diseases classified elsewhere; E89.0 Postprocedural hypothyroidism; R19.7 Diarrhea, unspecified; E78.5 Hyperlipidemia, unspecified; Z88.8 Allergy status to other drugs, medicaments and biological substances; Z98.51 Tubal ligation status; Z87.891 Personal history of nicotine dependence; Z79.84 Long term (current) use of oral hypoglycemic drugs; Z79.899 Other long term (current) drug therapy

== ENCOUNTER 2017-02-06 10:03 | Inpatient (IN) | payer OTHER ==
[2017-02-06 11:19] LABS: BASO % 0.3 % (0.0-1.0); EOS % 0.6 % (0.0-3.0); HEMATOCRIT 46.7 % (36.0-47.0); HEMOGLOBIN 15.1 g/dl (12.0-16.0); IMMATURE GRANULOCYTE % 0.5 % (0-0); LYMPH # 1.1 10^3/uL (1.5-4.5); LYMPH % 16.8 % (24.0-44.0); MEAN CORPUSCULAR HEMOGLOBIN 30.4 pg (27.0-33.0); MEAN CORPUSCULAR HGB CONC 32.3 g/dl (32.0-36.5); MEAN CORPUSCULAR VOLUME 94.2 fl (80.0-96.0); MONO # 0.5 10^3/uL (0.0-0.8); MONO % 7.2 % (0.0-5.0); NEUTROPHILS # 4.9 10^3/uL (1.8-7.7); NEUTROPHILS % 74.6 % (36.0-66.0); PLATELET COUNT, AUTOMATED 187 10^3/uL (150-450); RED BLOOD COUNT 4.96 10^6/uL (4.00-5.40); RED CELL DISTRIBUTION WIDTH 14.1 % (11.5-14.5); WHITE BLOOD COUNT 6.6 10^3/uL (4.0-10.0)
[2017-02-06] MEDS: IPRATROPIUM 0.5MG/ALBUTEROL 2.5MG INH SOL UD 3ML (DUONEB)(J7620) NEB ×6 (11:37→19:57)
[2017-02-06 11:40] LABS: ANION GAP 4 MEQ/L (8-16); BLOOD UREA NITROGEN 17 MG/DL (7-18); CALCIUM LEVEL 9.1 MG/DL (8.8-10.2); CARBON DIOXIDE LEVEL 33 MEQ/L (21-32); CHLORIDE LEVEL 103 MEQ/L (98-107); CREATININE FOR GFR 0.71 MG/DL (0.55-1.02); GLOMERULAR FILTRATION RATE > 60.0 (>45); GLUCOSE, FASTING 218 MG/DL (80-110); POTASSIUM SERUM 4.2 MEQ/L (3.5-5.1); SODIUM LEVEL 140 MEQ/L (136-145)
[2017-02-06 11:41] LABS: ABG BASE EXCESS -7.8 (-2.0-2.0); ABG O2 SATURATION 92.9 % (95.0-99.0); ABG PARTIAL PRESSURE CO2 24.7 mmHg (35.0-45.0); ABG PARTIAL PRESSURE O2 69.2 mmHg (75.0-100.0); ABG STANDARD HCO3 18.1 MEQ/L (22.0-26.0); ABG TOTAL CO2 15.8 MEQ/L (23.0-31.0); ABG pH (ARTERIAL) 7.402 UNITS (7.350-7.450)
[2017-02-06 11:46] LABS: LACTIC ACID SEPSIS PROTOCOL 2.7 MMOL/L (0.4-2.0)
[2017-02-06] MEDS: predniSONE 20 MG TAB PO (11:54)
[2017-02-06] MEDS ORDERED: NYSTATIN 100,000 UNITS/GM TOPICAL PWD 15 GM TOP (13:30)
[2017-02-06] MEDS ORDERED: GLUCAGON FOR INJ 1 MG VIAL (J1610) SC (13:30)
[2017-02-06] MEDS ORDERED: DEXTROSE 50% 50 ML SYRINGE IV (13:30)
[2017-02-06] MEDS ORDERED: GLUCOSE 4 GM CHEW TABLET PO (13:30)
[2017-02-06] MEDS ORDERED: GABAPENTIN 300 MG CAP PO (13:30)
[2017-02-06] MEDS ORDERED: NICOTINE POLACRILEX 2 MG GUM PO (13:30)
[2017-02-06] MEDS ORDERED: ALBUTEROL 90 MCG/ACT 8GM HFA INHALER INH (13:30)
[2017-02-06] MEDS ORDERED: ONDANSETRON 4MG/2ML VIAL (J2405) IV (13:30)
[2017-02-06 13:34] LABS: C REACTIVE PROTEIN QUANTITATIV 1.39 MG/DL (0.00-0.30)
[2017-02-06] MEDS: ACETAMINOPHEN TAB 650MG DOSE (2X325MG) PO ×2 (13:36→21:21)
[2017-02-06] MEDS: LEVOTHYROXINE 125MCG TABLET (0.125MG) PO (15:19)
[2017-02-06] MEDS: HumaLOG INSULIN (NovoLOG) PER UNIT SC ×3 (15:20→21:22)
[2017-02-06] MEDS: HEPARIN SOD (PORCINE) 5000 UNITS/ML VIAL SC ×2 (15:34→21:20)
[2017-02-06] MEDS: PANTOPRAZOLE 40MG TAB (PROTONIX) PO (15:35)
[2017-02-06] MEDS: AZITHROMYCIN INJ 500 MG, VIAL MATE ADAPTER 1 EACH in D5W 250 ML IV (15:35)
[2017-02-06] MEDS: VITAMIN D 1,000 INTERNATIONAL UNITS TABLET PO (15:35)
[2017-02-06] MEDS: ATORVASTATIN 20 MG TAB PO (15:35)
[2017-02-06] MEDS: CEFTRIAXONE SOD 2 GM in APPROPRIATE DILUENT 1 EA IV (17:13)
[2017-02-06] MEDS: NS 1,000 ML IV (17:14)
[2017-02-06] MEDS: dexameTHASONE 20 MG/5 ML VIAL (J1100) IV (17:18)
[2017-02-06 18:22] LABS: LACTIC ACID SEPSIS PROTOCOL 7.8 MMOL/L (0.4-2.0)
[2017-02-06] MEDS: SYMBICORT 160/4.5MCG INHALER 6GM INH (19:58)
[2017-02-06] MEDS: guaiFENesin ER 600 MG TAB PO (21:21)
[2017-02-06] MEDS: SENOKOT S TAB PO (21:21)
[2017-02-07] MEDS: IPRATROPIUM 0.5MG/ALBUTEROL 2.5MG INH SOL UD 3ML (DUONEB)(J7620) NEB ×4 (01:19→19:54)
[2017-02-07] MEDS: NS 1,000 ML IV (02:26)
[2017-02-07] MEDS: dexameTHASONE 20 MG/5 ML VIAL (J1100) IV (02:26)
[2017-02-07 03:13] LABS: LACTIC ACID SEPSIS PROTOCOL 3.8 MMOL/L (0.4-2.0)
[2017-02-07 06:03] LABS: HEMATOCRIT 40.1 % (36.0-47.0); MEAN CORPUSCULAR HGB CONC 32.7 g/dl (32.0-36.5); PLATELET COUNT, AUTOMATED 178 10^3/uL (150-450); RED BLOOD COUNT 4.36 10^6/uL (4.00-5.40); RED CELL DISTRIBUTION WIDTH 13.7 % (11.5-14.5); WHITE BLOOD COUNT 6.5 10^3/uL (4.0-10.0)
[2017-02-07 06:06] LABS: HEMOGLOBIN 13.1 g/dl (12.0-16.0)
[2017-02-07] MEDS: HEPARIN SOD (PORCINE) 5000 UNITS/ML VIAL SC ×3 (06:15→22:44)
[2017-02-07] MEDS: LEVOTHYROXINE 125MCG TABLET (0.125MG) PO (06:15)
[2017-02-07 06:25] LABS: ANION GAP 6 MEQ/L (8-16); BLOOD UREA NITROGEN 16 MG/DL (7-18); C REACTIVE PROTEIN QUANTITATIV 1.88 MG/DL (0.00-0.30); CALCIUM LEVEL 8.3 MG/DL (8.8-10.2); CARBON DIOXIDE LEVEL 28 MEQ/L (21-32); CHLORIDE LEVEL 106 MEQ/L (98-107); CREATININE FOR GFR 0.79 MG/DL (0.55-1.02); GLOMERULAR FILTRATION RATE > 60.0 (>45); GLUCOSE, FASTING 314 MG/DL (80-110); MAGNESIUM LEVEL 1.9 MG/DL (1.8-2.4); POTASSIUM SERUM 4.6 MEQ/L (3.5-5.1); SODIUM LEVEL 140 MEQ/L (136-145)
[2017-02-07] MEDS: SYMBICORT 160/4.5MCG INHALER 6GM INH ×2 (08:39→19:54)
[2017-02-07] MEDS: VITAMIN D 1,000 INTERNATIONAL UNITS TABLET PO (09:00)
[2017-02-07] MEDS: HumaLOG INSULIN (NovoLOG) PER UNIT SC ×4 (09:00→20:36)
[2017-02-07] MEDS: predniSONE 20 MG TAB PO ×2 (09:00→20:28)
[2017-02-07] MEDS: ATORVASTATIN 20 MG TAB PO (09:00)
[2017-02-07] MEDS: SENOKOT S TAB PO ×2 (09:00→20:35)
[2017-02-07] MEDS: PANTOPRAZOLE 40MG TAB (PROTONIX) PO (09:00)
[2017-02-07] MEDS: guaiFENesin ER 600 MG TAB PO ×2 (09:00→20:28)
[2017-02-07] MEDS: ACETAMINOPHEN TAB 650MG DOSE (2X325MG) PO ×2 (17:58→22:43)
[2017-02-08] MEDS: IPRATROPIUM 0.5MG/ALBUTEROL 2.5MG INH SOL UD 3ML (DUONEB)(J7620) NEB ×4 (01:52→20:00)
[2017-02-08] MEDS: LEVOTHYROXINE 125MCG TABLET (0.125MG) PO (05:46)
[2017-02-08] MEDS: BENZONATATE 100 MG CAP PO (05:46)
[2017-02-08] MEDS: HEPARIN SOD (PORCINE) 5000 UNITS/ML VIAL SC ×3 (05:47→20:39)
[2017-02-08 06:46] LABS: HEMATOCRIT 38.9 % (36.0-47.0); HEMOGLOBIN 12.7 g/dl (12.0-16.0); MEAN CORPUSCULAR HEMOGLOBIN 30.2 pg (27.0-33.0); MEAN CORPUSCULAR HGB CONC 32.6 g/dl (32.0-36.5); MEAN CORPUSCULAR VOLUME 92.6 fl (80.0-96.0); PLATELET COUNT, AUTOMATED 193 10^3/uL (150-450); RED CELL DISTRIBUTION WIDTH 13.8 % (11.5-14.5); WHITE BLOOD COUNT 12.7 10^3/uL (4.0-10.0)
[2017-02-08 06:59] LABS: BEDSIDE GLUCOSE 297 MG/DL (80-115)
[2017-02-08 06:59] LABS: BEDSIDE GLUCOSE 356 MG/DL (80-115)
[2017-02-08 06:59] LABS: BEDSIDE GLUCOSE 326 MG/DL (80-115)
[2017-02-08 06:59] LABS: BEDSIDE GLUCOSE 339 MG/DL (80-115)
[2017-02-08 06:59] LABS: BEDSIDE GLUCOSE 351 MG/DL (80-115)
[2017-02-08 07:08] LABS: ANION GAP 5 MEQ/L (8-16); BLOOD UREA NITROGEN 26 MG/DL (7-18); CALCIUM LEVEL 8.3 MG/DL (8.8-10.2); CARBON DIOXIDE LEVEL 29 MEQ/L (21-32); CHLORIDE LEVEL 105 MEQ/L (98-107); GLOMERULAR FILTRATION RATE > 60.0 (>45); GLUCOSE, FASTING 393 MG/DL (80-110); MAGNESIUM LEVEL 2.3 MG/DL (1.8-2.4); SODIUM LEVEL 139 MEQ/L (136-145)
[2017-02-08 07:09] LABS: POTASSIUM SERUM 5.2 MEQ/L (3.5-5.1)
[2017-02-08] MEDS: SYMBICORT 160/4.5MCG INHALER 6GM INH ×2 (07:57→20:19)
[2017-02-08] MEDS: PANTOPRAZOLE 40MG TAB (PROTONIX) PO (08:45)
[2017-02-08] MEDS: ATORVASTATIN 20 MG TAB PO (08:45)
[2017-02-08] MEDS: guaiFENesin ER 600 MG TAB PO ×2 (08:45→20:40)
[2017-02-08] MEDS: predniSONE 20 MG TAB PO ×2 (08:45→20:40)
[2017-02-08] MEDS: VITAMIN D 1,000 INTERNATIONAL UNITS TABLET PO (08:45)
[2017-02-08] MEDS: SENOKOT S TAB PO ×2 (08:46→20:39)
[2017-02-08] MEDS: HumaLOG INSULIN (NovoLOG) PER UNIT SC ×4 (08:47→20:49)
[2017-02-08] MEDS ORDERED: guaiFENesin ER 600 MG TAB PO (09:00)
[2017-02-08] MEDS ORDERED: MOM 30ML SUSPENSION UDC PO (09:00)
[2017-02-08 10:04] LABS: ANION GAP 8 MEQ/L (8-16); BLOOD UREA NITROGEN 28 MG/DL (7-18); CALCIUM LEVEL 8.4 MG/DL (8.8-10.2); CARBON DIOXIDE LEVEL 28 MEQ/L (21-32); CHLORIDE LEVEL 104 MEQ/L (98-107); GLOMERULAR FILTRATION RATE > 60.0 (>45); GLUCOSE, FASTING 376 MG/DL (80-110); POTASSIUM SERUM 4.6 MEQ/L (3.5-5.1); SODIUM LEVEL 140 MEQ/L (136-145)
[2017-02-08] MEDS: ACETAMINOPHEN TAB 650MG DOSE (2X325MG) PO (16:13)
[2017-02-09] MEDS: IPRATROPIUM 0.5MG/ALBUTEROL 2.5MG INH SOL UD 3ML (DUONEB)(J7620) NEB ×4 (01:46→20:00)
[2017-02-09 05:24] LABS: HEMATOCRIT 38.9 % (36.0-47.0); HEMOGLOBIN 12.9 g/dl (12.0-16.0); MEAN CORPUSCULAR HEMOGLOBIN 30.1 pg (27.0-33.0); MEAN CORPUSCULAR HGB CONC 33.2 g/dl (32.0-36.5); MEAN CORPUSCULAR VOLUME 90.9 fl (80.0-96.0); PLATELET COUNT, AUTOMATED 194 10^3/uL (150-450); RED BLOOD COUNT 4.28 10^6/uL (4.00-5.40); RED CELL DISTRIBUTION WIDTH 13.9 % (11.5-14.5); WHITE BLOOD COUNT 9.3 10^3/uL (4.0-10.0)
[2017-02-09 05:37] LABS: ANION GAP 5 MEQ/L (8-16); BLOOD UREA NITROGEN 28 MG/DL (7-18); CALCIUM LEVEL 8.6 MG/DL (8.8-10.2); CARBON DIOXIDE LEVEL 31 MEQ/L (21-32); CHLORIDE LEVEL 104 MEQ/L (98-107); CREATININE FOR GFR 0.89 MG/DL (0.55-1.02); GLOMERULAR FILTRATION RATE > 60.0 (>45); GLUCOSE, FASTING 389 MG/DL (80-110); MAGNESIUM LEVEL 2.2 MG/DL (1.8-2.4); POTASSIUM SERUM 5.1 MEQ/L (3.5-5.1); SODIUM LEVEL 140 MEQ/L (136-145)
[2017-02-09] MEDS: LEVOTHYROXINE 125MCG TABLET (0.125MG) PO (05:53)
[2017-02-09] MEDS: HEPARIN SOD (PORCINE) 5000 UNITS/ML VIAL SC ×3 (05:54→21:36)
[2017-02-09] MEDS: SYMBICORT 160/4.5MCG INHALER 6GM INH ×2 (07:35→20:16)
[2017-02-09] MEDS: HumaLOG INSULIN (NovoLOG) PER UNIT SC ×4 (08:10→21:36)
[2017-02-09] MEDS: ATORVASTATIN 20 MG TAB PO (08:11)
[2017-02-09] MEDS: PANTOPRAZOLE 40MG TAB (PROTONIX) PO (08:11)
[2017-02-09] MEDS: SENOKOT S TAB PO ×2 (08:11→21:35)
[2017-02-09] MEDS: guaiFENesin ER 600 MG TAB PO ×2 (08:11→21:35)
[2017-02-09] MEDS: predniSONE 20 MG TAB PO ×2 (08:11→21:35)
[2017-02-09] MEDS: VITAMIN D 1,000 INTERNATIONAL UNITS TABLET PO (08:11)
[2017-02-09 20:54] LABS: BEDSIDE GLUCOSE 384 MG/DL (80-115)
[2017-02-09 20:54] LABS: BEDSIDE GLUCOSE 478 MG/DL (80-115)
[2017-02-09 20:54] LABS: BEDSIDE GLUCOSE 414 MG/DL (80-115)
[2017-02-09 20:54] LABS: BEDSIDE GLUCOSE 430 MG/DL (80-115)
[2017-02-09 20:54] LABS: BEDSIDE GLUCOSE 307 MG/DL (80-115)
[2017-02-09 20:54] LABS: BEDSIDE GLUCOSE 326 MG/DL (80-115)
[2017-02-10] MEDS: IPRATROPIUM 0.5MG/ALBUTEROL 2.5MG INH SOL UD 3ML (DUONEB)(J7620) NEB ×2 (00:25→08:00)
[2017-02-10] MEDS: ACETAMINOPHEN TAB 650MG DOSE (2X325MG) PO (00:48)
[2017-02-10 05:35] LABS: HEMATOCRIT 39.8 % (36.0-47.0); HEMOGLOBIN 13.4 g/dl (12.0-16.0); MEAN CORPUSCULAR HEMOGLOBIN 30.2 pg (27.0-33.0); MEAN CORPUSCULAR HGB CONC 33.7 g/dl (32.0-36.5); MEAN CORPUSCULAR VOLUME 89.8 fl (80.0-96.0); PLATELET COUNT, AUTOMATED 195 10^3/uL (150-450); RED BLOOD COUNT 4.43 10^6/uL (4.00-5.40); RED CELL DISTRIBUTION WIDTH 13.7 % (11.5-14.5); WHITE BLOOD COUNT 7.9 10^3/uL (4.0-10.0)
[2017-02-10 05:49] LABS: ANION GAP 8 MEQ/L (8-16); BLOOD UREA NITROGEN 26 MG/DL (7-18); CALCIUM LEVEL 8.2 MG/DL (8.8-10.2); CARBON DIOXIDE LEVEL 30 MEQ/L (21-32); CHLORIDE LEVEL 101 MEQ/L (98-107); CREATININE FOR GFR 0.79 MG/DL (0.55-1.02); GLOMERULAR FILTRATION RATE > 60.0 (>45); GLUCOSE, FASTING 357 MG/DL (80-110); POTASSIUM SERUM 4.8 MEQ/L (3.5-5.1); SODIUM LEVEL 139 MEQ/L (136-145)
[2017-02-10] MEDS: HEPARIN SOD (PORCINE) 5000 UNITS/ML VIAL SC (06:10)
[2017-02-10] MEDS: LEVOTHYROXINE 125MCG TABLET (0.125MG) PO (06:10)
[2017-02-10] MEDS: SYMBICORT 160/4.5MCG INHALER 6GM INH (08:39)
[2017-02-10] MEDS: ATORVASTATIN 20 MG TAB PO (09:57)
[2017-02-10] MEDS: PANTOPRAZOLE 40MG TAB (PROTONIX) PO (09:58)
[2017-02-10] MEDS: predniSONE 20 MG TAB PO (09:58)
[2017-02-10] MEDS: VITAMIN D 1,000 INTERNATIONAL UNITS TABLET PO (09:58)
[2017-02-10] MEDS: guaiFENesin ER 600 MG TAB PO (09:58)
[2017-02-10] MEDS: SENOKOT S TAB PO (09:58)
[2017-02-10] MEDS: HumaLOG INSULIN (NovoLOG) PER UNIT SC (09:58)
[2017-02-12] MEDS ORDERED: VITAMIN D 50,000 UNITS CAPSULE (ERGOCALCIFEROL 1.25MG) PO (09:00)
== END 2017-02-10 11:38 | disposition home or self-care (01) | DRG 140 ==
LOC: M ED 10:03 → M ED INP 13:18 → M MSPAV 15:01
DX: J44.1 Chronic obstructive pulmonary disease with (acute) exacerbation (principal); E11.40 Type 2 diabetes mellitus with diabetic neuropathy, unspecified; Z99.81 Dependence on supplemental oxygen; B97.4 Respiratory syncytial virus as the cause of diseases classified elsewhere; E89.0 Postprocedural hypothyroidism; E78.5 Hyperlipidemia, unspecified; F17.210 Nicotine dependence, cigarettes, uncomplicated; Z88.8 Allergy status to other drugs, medicaments and biological substances; Z98.51 Tubal ligation status; Z79.84 Long term (current) use of oral hypoglycemic drugs; Z79.899 Other long term (current) drug therapy

== ENCOUNTER 2017-04-06 15:30 | Inpatient (IN) | payer OTHER ==
[2017-04-06] MEDS: IPRATROPIUM 0.5MG/ALBUTEROL 2.5MG INH SOL UD 3ML (DUONEB)(J7620) NEB (18:33)
[2017-04-06] MEDS: ALBUTEROL SULFATE 2.5 MG/0.5 ML INH NEB SOLN NEB ×2 (18:33→20:30)
[2017-04-06 19:11] LABS: BASO % 0.4 % (0.0-1.0); EOS % 0.2 % (0.0-3.0); HEMATOCRIT 42.2 % (36.0-47.0); HEMOGLOBIN 13.9 g/dl (12.0-16.0); IMMATURE GRANULOCYTE % 0.4 % (0-3.0); LYMPH # 1.9 10^3/uL (1.5-4.5); LYMPH % 18.2 % (24.0-44.0); MEAN CORPUSCULAR HEMOGLOBIN 30.8 pg (27.0-33.0); MEAN CORPUSCULAR HGB CONC 32.9 g/dl (32.0-36.5); MEAN CORPUSCULAR VOLUME 93.4 fl (80.0-96.0); MONO # 0.8 10^3/uL (0.0-0.8); MONO % 7.7 % (0.0-5.0); NEUTROPHILS # 7.7 10^3/uL (1.8-7.7); NEUTROPHILS % 73.1 % (36.0-66.0); PLATELET COUNT, AUTOMATED 195 10^3/uL (150-450); RED BLOOD COUNT 4.52 10^6/uL (4.00-5.40); RED CELL DISTRIBUTION WIDTH 13.4 % (11.5-14.5); WHITE BLOOD COUNT 10.5 10^3/uL (4.0-10.0)
[2017-04-06] MEDS: dexameTHASONE 20 MG/5 ML VIAL (J1100) IV (19:30)
[2017-04-06 19:41] LABS: ALBUMIN 3.5 GM/DL (3.2-5.2); ALBUMIN/GLOBULIN RATIO 1.03 (1.00-1.93); ALKALINE PHOSPHATASE 88 U/L (45-117); ALT/SGPT 15 U/L (12-78); ANION GAP 9 MEQ/L (8-16); AST/SGOT 6 U/L (7-37); BILIRUBIN,DIRECT 0.1 MG/DL (0.0-0.2); BILIRUBIN,TOTAL 0.5 MG/DL (0.2-1.0); BLOOD UREA NITROGEN 10 MG/DL (7-18); CALCIUM LEVEL 8.9 MG/DL (8.8-10.2); CARBON DIOXIDE LEVEL 28 MEQ/L (21-32); CHLORIDE LEVEL 105 MEQ/L (98-107); CREATININE FOR GFR 0.61 MG/DL (0.55-1.30); GLOMERULAR FILTRATION RATE > 60.0 (>45); GLUCOSE, FASTING 141 MG/DL (70-100); POTASSIUM SERUM 3.9 MEQ/L (3.5-5.1); SODIUM LEVEL 142 MEQ/L (136-145); TOTAL PROTEIN 6.9 GM/DL (6.4-8.2)
[2017-04-06] MEDS ORDERED: GLUCAGON FOR INJ 1 MG VIAL (J1610) SC (22:30)
[2017-04-06] MEDS ORDERED: DEXTROSE 50% 50 ML SYRINGE IV (22:30)
[2017-04-06] MEDS ORDERED: GABAPENTIN 300 MG CAP PO (22:30)
[2017-04-06] MEDS ORDERED: NYSTATIN 100,000 UNITS/GM TOPICAL PWD 15 GM TOP (22:30)
[2017-04-06] MEDS ORDERED: IPRATROPIUM 0.5MG/ALBUTEROL 2.5MG INH SOL UD 3ML (DUONEB)(J7620) NEB (22:30)
[2017-04-06] MEDS ORDERED: GLUCOSE 4 GM CHEW TABLET PO (22:30)
[2017-04-07] MEDS ORDERED: methylPREDNISolone INJ 125 MG/2 ML VIAL (J2930) IV
[2017-04-07 00:05] LABS: BEDSIDE GLUCOSE 234 MG/DL (80-115)
[2017-04-07] MEDS: IPRATROPIUM 0.5MG/ALBUTEROL 2.5MG INH SOL UD 3ML (DUONEB)(J7620) NEB ×4 (00:10→20:00)
[2017-04-07] MEDS: predniSONE 20 MG TAB PO ×4 (02:04→21:54)
[2017-04-07] MEDS: LevoFLOXacin IV 500 MG in APPROPRIATE DILUENT 1 EA IV ×2 (02:04→22:00)
[2017-04-07 05:58] LABS: HEMATOCRIT 41.8 % (36.0-47.0); HEMOGLOBIN 13.8 g/dl (12.0-16.0); MEAN CORPUSCULAR HEMOGLOBIN 30.3 pg (27.0-33.0); MEAN CORPUSCULAR VOLUME 91.9 fl (80.0-96.0); PLATELET COUNT, AUTOMATED 252 10^3/uL (150-450); RED BLOOD COUNT 4.55 10^6/uL (4.00-5.40); RED CELL DISTRIBUTION WIDTH 13.2 % (11.5-14.5); WHITE BLOOD COUNT 8.9 10^3/uL (4.0-10.0)
[2017-04-07] MEDS ORDERED: LEVOTHYROXINE 75MCG TABLET (0.075MG) As Ordered (05:59)
[2017-04-07 06:02] LABS: ANION GAP 10 MEQ/L (8-16); BLOOD UREA NITROGEN 16 MG/DL (7-18); CALCIUM LEVEL 9.4 MG/DL (8.8-10.2); CARBON DIOXIDE LEVEL 28 MEQ/L (21-32); CHLORIDE LEVEL 100 MEQ/L (98-107); CREATININE FOR GFR 0.94 MG/DL (0.55-1.30); GLUCOSE, FASTING 340 MG/DL (70-100); POTASSIUM SERUM 4.3 MEQ/L (3.5-5.1); SODIUM LEVEL 138 MEQ/L (136-145)
[2017-04-07 06:07] LABS: GLOMERULAR FILTRATION RATE > 60.0 (>45)
[2017-04-07] MEDS ORDERED: LEVOTHYROXINE 125MCG TABLET (0.125MG) As Ordered (06:11)
[2017-04-07] MEDS: LEVOTHYROXINE 125MCG TABLET (0.125MG) PO (06:19)
[2017-04-07] MEDS: TIOTROPIUM INHALER/CAPSULE (SPIRIVA) INH (08:09)
[2017-04-07] MEDS: SYMBICORT 160/4.5MCG INHALER 6GM INH ×2 (08:10→21:11)
[2017-04-07] MEDS: ATORVASTATIN 20 MG TAB PO (09:04)
[2017-04-07] MEDS: HumaLOG INSULIN (NovoLOG) PER UNIT SC ×5 (09:05→21:54)
[2017-04-07] MEDS: ENOXAPARIN 40 MG/0.4 ML SYRINGE (J1650) SC (09:05)
[2017-04-07 11:50] LABS: BEDSIDE GLUCOSE 302 MG/DL (80-115)
[2017-04-07 16:56] LABS: BEDSIDE GLUCOSE 422 MG/DL (80-115)
[2017-04-07 20:54] LABS: BEDSIDE GLUCOSE 293 MG/DL (80-115)
[2017-04-08] MEDS: IPRATROPIUM 0.5MG/ALBUTEROL 2.5MG INH SOL UD 3ML (DUONEB)(J7620) NEB ×2 (02:00→08:00)
[2017-04-08] MEDS: LEVOTHYROXINE 125MCG TABLET (0.125MG) PO (05:42)
[2017-04-08 06:19] LABS: HEMATOCRIT 38.8 % (36.0-47.0); HEMOGLOBIN 13.3 g/dl (12.0-16.0); MEAN CORPUSCULAR HEMOGLOBIN 30.9 pg (27.0-33.0); MEAN CORPUSCULAR HGB CONC 34.3 g/dl (32.0-36.5); MEAN CORPUSCULAR VOLUME 90.2 fl (80.0-96.0); PLATELET COUNT, AUTOMATED 258 10^3/uL (150-450); WHITE BLOOD COUNT 14.4 10^3/uL (4.0-10.0)
[2017-04-08 06:38] LABS: ANION GAP 6 MEQ/L (8-16); BLOOD UREA NITROGEN 20 MG/DL (7-18); CALCIUM LEVEL 9.3 MG/DL (8.8-10.2); CARBON DIOXIDE LEVEL 27 MEQ/L (21-32); CHLORIDE LEVEL 104 MEQ/L (98-107); CREATININE FOR GFR 0.78 MG/DL (0.55-1.30); GLOMERULAR FILTRATION RATE > 60.0 (>45); GLUCOSE, FASTING 319 MG/DL (70-100); POTASSIUM SERUM 4.5 MEQ/L (3.5-5.1); SODIUM LEVEL 137 MEQ/L (136-145)
[2017-04-08] MEDS: predniSONE 20 MG TAB PO (08:18)
[2017-04-08] MEDS: ATORVASTATIN 20 MG TAB PO (08:18)
[2017-04-08] MEDS: HumaLOG INSULIN (NovoLOG) PER UNIT SC (08:19)
[2017-04-08] MEDS: ENOXAPARIN 40 MG/0.4 ML SYRINGE (J1650) SC (08:19)
[2017-04-08] MEDS: SYMBICORT 160/4.5MCG INHALER 6GM INH (10:50)
[2017-04-08] MEDS: TIOTROPIUM INHALER/CAPSULE (SPIRIVA) INH (10:50)
== END 2017-04-08 11:45 | disposition home or self-care (01) | DRG 140 ==
LOC: M MSPAV 04-07 01:25 → M ED 15:30 → M ED INP 22:49
DX: J44.1 Chronic obstructive pulmonary disease with (acute) exacerbation (principal); E03.9 Hypothyroidism, unspecified; Z87.891 Personal history of nicotine dependence; E11.9 Type 2 diabetes mellitus without complications; E78.5 Hyperlipidemia, unspecified; Z79.899 Other long term (current) drug therapy

== ENCOUNTER → 2017-04-19 | Outpatient (CLI) | payer OTHER | LOC: M ADAMS 13:47 | DX: M25.562 Pain in left knee (principal); M79.605 Pain in left leg | CPT/HCPCS: 73564 ==

== ENCOUNTER 2017-05-06 01:12 | Inpatient (IN) | payer OTHER ==
[2017-05-06 02:52] LABS: BASO % 0.1 % (0.0-1.0); EOS % 0.4 % (0.0-3.0); HEMOGLOBIN 15.1 g/dl (12.0-16.0); IMMATURE GRANULOCYTE % 0.4 % (0-3.0); LYMPH % 13.7 % (24.0-44.0); MEAN CORPUSCULAR HEMOGLOBIN 30.9 pg (27.0-33.0); MEAN CORPUSCULAR HGB CONC 32.8 g/dl (32.0-36.5); MEAN CORPUSCULAR VOLUME 94.3 fl (80.0-96.0); MONO # 0.5 10^3/uL (0.0-0.8); NEUTROPHILS % 79.4 % (36.0-66.0); PLATELET COUNT, AUTOMATED 146 10^3/uL (150-450); RED BLOOD COUNT 4.88 10^6/uL (4.00-5.40); RED CELL DISTRIBUTION WIDTH 13.6 % (11.5-14.5); WHITE BLOOD COUNT 7.5 10^3/uL (4.0-10.0)
[2017-05-06] MEDS: IPRATROPIUM 0.5MG/ALBUTEROL 2.5MG INH SOL UD 3ML (DUONEB)(J7620) NEB ×6 (02:53→20:00)
[2017-05-06 03:01] LABS: ABG BASE EXCESS -2.1 (-2.0-2.0); ABG HCO3 24.7 MEQ/L (22.0-26.0); ABG O2 SATURATION 98.6 % (95.0-99.0); ABG PARTIAL PRESSURE CO2 49.7 mmHg (35.0-45.0); ABG PARTIAL PRESSURE O2 139.2 mmHg (75.0-100.0); ABG STANDARD HCO3 22.8 MEQ/L (22.0-26.0); ABG TOTAL CO2 26.2 MEQ/L (23.0-31.0); ABG pH (ARTERIAL) 7.314 UNITS (7.350-7.450)
[2017-05-06] MEDS ORDERED: GLUCOSE 4 GM CHEW TABLET PO (03:15)
[2017-05-06] MEDS ORDERED: DEXTROSE 50% 50 ML SYRINGE IV (03:15)
[2017-05-06] MEDS ORDERED: GLUCAGON FOR INJ 1 MG VIAL (J1610) SC (03:15)
[2017-05-06 03:16] LABS: LACTIC ACID SEPSIS PROTOCOL 1.4 MMOL/L (0.4-2.0)
[2017-05-06 03:18] LABS: ANION GAP 5 MEQ/L (8-16); BLOOD UREA NITROGEN 13 MG/DL (7-18); CALCIUM LEVEL 9.2 MG/DL (8.8-10.2); CARBON DIOXIDE LEVEL 28 MEQ/L (21-32); CHLORIDE LEVEL 105 MEQ/L (98-107); CK-MB VALUE MASS < 1.0 NG/ML (<3.6); CPK CREATINE PHOSPHOKINASE 26 U/L (26-192); CREATININE FOR GFR 0.65 MG/DL (0.55-1.30); GLOMERULAR FILTRATION RATE > 60.0 (>45); GLUCOSE, FASTING 200 MG/DL (70-100); MB/CK RELATIVE INDEX 3.84 (< OR =4); POTASSIUM SERUM 3.6 MEQ/L (3.5-5.1); SODIUM LEVEL 138 MEQ/L (136-145); TROPONIN I < 0.02 NG/ML (< 0.10)
[2017-05-06 03:31] LABS: INFLUENZA A AMPLIFICATION NEGATIVE (NEGATIVE); INFLUENZA B AMPLIFICATION NEGATIVE (NEGATIVE); RSV AMPLIFICATION NEGATIVE (NEGATIVE)
[2017-05-06] MEDS: NS 1,000 ML IV ×2 (04:22→20:44)
[2017-05-06] MEDS: LevoFLOXacin IV 750 MG in APPROPRIATE DILUENT 1 EA IV (05:24)
[2017-05-06] MEDS ORDERED: GABAPENTIN 300 MG CAP PO (06:45)
[2017-05-06] MEDS ORDERED: NYSTATIN 100,000 UNITS/GM TOPICAL PWD 15 GM TOP (06:45)
[2017-05-06] MEDS: LEVOTHYROXINE 125MCG TABLET (0.125MG) PO (08:21)
[2017-05-06 08:35] LABS: BEDSIDE GLUCOSE 284 MG/DL (80-115)
[2017-05-06] MEDS: VITAMIN D 1,000 INTERNATIONAL UNITS TABLET PO (08:49)
[2017-05-06] MEDS: ATORVASTATIN 20 MG TAB PO (08:49)
[2017-05-06] MEDS: SENOKOT S TAB PO ×2 (08:49→20:44)
[2017-05-06] MEDS: predniSONE 20 MG TAB PO (08:49)
[2017-05-06] MEDS: ENOXAPARIN 40 MG/0.4 ML SYRINGE (J1650) SC (08:50)
[2017-05-06] MEDS: HumaLOG INSULIN (NovoLOG) PER UNIT SC ×4 (08:50→20:44)
[2017-05-06] MEDS: SYMBICORT 160/4.5MCG INHALER 6GM INH ×2 (08:59→20:01)
[2017-05-06 12:24] LABS: BEDSIDE GLUCOSE 265 MG/DL (80-115)
[2017-05-06 17:20] LABS: BEDSIDE GLUCOSE 310 MG/DL (80-115)
[2017-05-06] MEDS: MAALOX 30 ML SUSP *UDC PO (18:12)
[2017-05-06 20:45] LABS: BEDSIDE GLUCOSE 256 MG/DL (80-115)
[2017-05-07] MEDS: LEVOTHYROXINE 125MCG TABLET (0.125MG) PO (05:33)
[2017-05-07] MEDS: LevoFLOXacin IV 750 MG in APPROPRIATE DILUENT 1 EA IV (05:33)
[2017-05-07] MEDS: SYMBICORT 160/4.5MCG INHALER 6GM INH ×2 (07:23→20:22)
[2017-05-07] MEDS: IPRATROPIUM 0.5MG/ALBUTEROL 2.5MG INH SOL UD 3ML (DUONEB)(J7620) NEB ×3 (08:00→20:00)
[2017-05-07] MEDS: predniSONE 20 MG TAB PO (09:04)
[2017-05-07] MEDS: SENOKOT S TAB PO ×2 (09:04→22:15)
[2017-05-07] MEDS: VITAMIN D 1,000 INTERNATIONAL UNITS TABLET PO (09:04)
[2017-05-07] MEDS: ATORVASTATIN 20 MG TAB PO (09:04)
[2017-05-07] MEDS: ENOXAPARIN 40 MG/0.4 ML SYRINGE (J1650) SC (09:04)
[2017-05-07] MEDS: HumaLOG INSULIN (NovoLOG) PER UNIT SC ×4 (09:05→21:00)
[2017-05-07 10:03] LABS: HEMATOCRIT 42.5 % (36.0-47.0); HEMOGLOBIN 13.8 g/dl (12.0-16.0); MEAN CORPUSCULAR HEMOGLOBIN 30.5 pg (27.0-33.0); MEAN CORPUSCULAR HGB CONC 32.5 g/dl (32.0-36.5); PLATELET COUNT, AUTOMATED 150 10^3/uL (150-450); RED BLOOD COUNT 4.52 10^6/uL (4.00-5.40); RED CELL DISTRIBUTION WIDTH 13.6 % (11.5-14.5); WHITE BLOOD COUNT 7.4 10^3/uL (4.0-10.0)
[2017-05-07 10:38] LABS: ALBUMIN 3.1 GM/DL (3.2-5.2); ALBUMIN/GLOBULIN RATIO 1.03 (1.00-1.93); ALKALINE PHOSPHATASE 72 U/L (45-117); ALT/SGPT 15 U/L (12-78); ANION GAP 5 MEQ/L (8-16); AST/SGOT 14 U/L (7-37); BILIRUBIN,TOTAL 0.2 MG/DL (0.2-1.0); BLOOD UREA NITROGEN 15 MG/DL (7-18); CALCIUM LEVEL 8.4 MG/DL (8.8-10.2); CARBON DIOXIDE LEVEL 31 MEQ/L (21-32); CHLORIDE LEVEL 106 MEQ/L (98-107); CREATININE FOR GFR 0.78 MG/DL (0.55-1.30); GLOMERULAR FILTRATION RATE > 60.0 (>45); GLUCOSE, FASTING 281 MG/DL (70-100); POTASSIUM SERUM 4.2 MEQ/L (3.5-5.1); SODIUM LEVEL 142 MEQ/L (136-145); TOTAL PROTEIN 6.1 GM/DL (6.4-8.2)
[2017-05-07] MEDS: NS 1,000 ML IV ×2 (11:00→23:43)
[2017-05-07 11:38] LABS: BEDSIDE GLUCOSE 139 MG/DL (80-115)
[2017-05-07] MEDS: VITAMIN D 50,000 UNITS CAPSULE (ERGOCALCIFEROL 1.25MG) PO (13:00)
[2017-05-07 17:06] LABS: BEDSIDE GLUCOSE 289 MG/DL (80-115)
[2017-05-07 22:15] LABS: BEDSIDE GLUCOSE 244 MG/DL (80-115)
[2017-05-07] MEDS: ACETAMINOPHEN TAB 650MG DOSE (2X325MG) PO (22:16)
[2017-05-08] MEDS: LevoFLOXacin IV 750 MG in APPROPRIATE DILUENT 1 EA IV (04:47)
[2017-05-08] MEDS: IPRATROPIUM 0.5MG/ALBUTEROL 2.5MG INH SOL UD 3ML (DUONEB)(J7620) NEB ×5 (04:58→20:00)
[2017-05-08] MEDS: LEVOTHYROXINE 125MCG TABLET (0.125MG) PO (06:02)
[2017-05-08 06:11] LABS: BEDSIDE GLUCOSE 223 MG/DL (80-115)
[2017-05-08] MEDS: SYMBICORT 160/4.5MCG INHALER 6GM INH ×2 (08:00→20:50)
[2017-05-08] MEDS: ATORVASTATIN 20 MG TAB PO (08:42)
[2017-05-08] MEDS: SENOKOT S TAB PO ×2 (08:42→21:49)
[2017-05-08] MEDS: HumaLOG INSULIN (NovoLOG) PER UNIT SC ×4 (08:42→21:36)
[2017-05-08] MEDS: predniSONE 20 MG TAB PO (08:42)
[2017-05-08] MEDS: VITAMIN D 1,000 INTERNATIONAL UNITS TABLET PO (08:43)
[2017-05-08] MEDS: ENOXAPARIN 40 MG/0.4 ML SYRINGE (J1650) SC (08:43)
[2017-05-08] MEDS: NS 1,000 ML IV (08:43)
[2017-05-08] MEDS: SLF 3 ML SYR IV ×2 (11:44→21:49)
[2017-05-08] MEDS: glyBURIDE 2.5 MG TAB PO ×2 (11:44→17:29)
[2017-05-08 11:53] LABS: BEDSIDE GLUCOSE 158 MG/DL (80-115)
[2017-05-08 16:34] LABS: BEDSIDE GLUCOSE 375 MG/DL (80-115)
[2017-05-09] MEDS: LevoFLOXacin IV 750 MG in APPROPRIATE DILUENT 1 EA IV (06:09)
[2017-05-09] MEDS: LEVOTHYROXINE 125MCG TABLET (0.125MG) PO (06:09)
[2017-05-09] MEDS: SLF 3 ML SYR IV ×4 (06:10→22:00)
[2017-05-09 06:58] LABS: HEMATOCRIT 40.6 % (36.0-47.0); HEMOGLOBIN 13.2 g/dl (12.0-16.0); MEAN CORPUSCULAR HEMOGLOBIN 30.6 pg (27.0-33.0); MEAN CORPUSCULAR HGB CONC 32.5 g/dl (32.0-36.5); PLATELET COUNT, AUTOMATED 144 10^3/uL (150-450); RED BLOOD COUNT 4.32 10^6/uL (4.00-5.40); RED CELL DISTRIBUTION WIDTH 13.5 % (11.5-14.5); WHITE BLOOD COUNT 6.6 10^3/uL (4.0-10.0)
[2017-05-09] MEDS: SYMBICORT 160/4.5MCG INHALER 6GM INH ×2 (07:50→20:40)
[2017-05-09] MEDS: IPRATROPIUM 0.5MG/ALBUTEROL 2.5MG INH SOL UD 3ML (DUONEB)(J7620) NEB ×3 (07:52→20:00)
[2017-05-09] MEDS: predniSONE 20 MG TAB PO (08:52)
[2017-05-09] MEDS: VITAMIN D 1,000 INTERNATIONAL UNITS TABLET PO (08:52)
[2017-05-09] MEDS: SENOKOT S TAB PO ×2 (08:52→21:00)
[2017-05-09] MEDS: ATORVASTATIN 20 MG TAB PO (08:52)
[2017-05-09] MEDS: glyBURIDE 2.5 MG TAB PO ×2 (08:53→18:53)
[2017-05-09] MEDS: ENOXAPARIN 40 MG/0.4 ML SYRINGE (J1650) SC (08:53)
[2017-05-09] MEDS: HumaLOG INSULIN (NovoLOG) PER UNIT SC ×4 (08:54→22:49)
[2017-05-09] MEDS: SODIUM CHLORIDE NASAL 0.65% SPRAY BTL (OCEAN) (10:23)
[2017-05-09] MEDS: metFORMIN (GLUCOPHAGE) 1000 MG TABLET PO ×2 (10:24→18:50)
[2017-05-09] MEDS: BENZONATATE 100 MG CAP PO ×3 (10:24→22:49)
[2017-05-10] MEDS: SLF 3 ML SYR IV ×3 (06:00→21:46)
[2017-05-10] MEDS: LevoFLOXacin 750 MG TABLET PO (06:24)
[2017-05-10] MEDS: LEVOTHYROXINE 125MCG TABLET (0.125MG) PO (06:24)
[2017-05-10] MEDS: IPRATROPIUM 0.5MG/ALBUTEROL 2.5MG INH SOL UD 3ML (DUONEB)(J7620) NEB ×3 (07:16→20:00)
[2017-05-10] MEDS: SYMBICORT 160/4.5MCG INHALER 6GM INH ×2 (07:17→20:06)
[2017-05-10] MEDS: HumaLOG INSULIN (NovoLOG) PER UNIT SC ×4 (07:30→21:00)
[2017-05-10] MEDS: BENZONATATE 100 MG CAP PO ×3 (08:52→21:43)
[2017-05-10] MEDS: glyBURIDE 2.5 MG TAB PO ×2 (08:52→17:27)
[2017-05-10] MEDS: metFORMIN (GLUCOPHAGE) 1000 MG TABLET PO ×2 (08:52→17:27)
[2017-05-10] MEDS: ATORVASTATIN 20 MG TAB PO (08:53)
[2017-05-10] MEDS: predniSONE 20 MG TAB PO (08:53)
[2017-05-10] MEDS: ENOXAPARIN 40 MG/0.4 ML SYRINGE (J1650) SC (08:53)
[2017-05-10] MEDS: SENOKOT S TAB PO ×2 (08:53→21:43)
[2017-05-10] MEDS: VITAMIN D 1,000 INTERNATIONAL UNITS TABLET PO (08:53)
[2017-05-10 22:00] LABS: BEDSIDE GLUCOSE 121 MG/DL (80-115)
[2017-05-10 22:01] LABS: BEDSIDE GLUCOSE 135 MG/DL (80-115)
[2017-05-10 22:01] LABS: BEDSIDE GLUCOSE 256 MG/DL (80-115)
[2017-05-10 22:01] LABS: BEDSIDE GLUCOSE 250 MG/DL (80-115)
[2017-05-10 22:01] LABS: BEDSIDE GLUCOSE 272 MG/DL (80-115)
[2017-05-10 22:01] LABS: BEDSIDE GLUCOSE 101 MG/DL (80-115)
[2017-05-10 22:01] LABS: BEDSIDE GLUCOSE 118 MG/DL (80-115)
[2017-05-10 22:01] LABS: BEDSIDE GLUCOSE 136 MG/DL (80-115)
[2017-05-10 22:01] LABS: BEDSIDE GLUCOSE 252 MG/DL (80-115)
[2017-05-11] MEDS: LevoFLOXacin 750 MG TABLET PO (05:31)
[2017-05-11] MEDS: LEVOTHYROXINE 125MCG TABLET (0.125MG) PO (05:31)
[2017-05-11] MEDS: HumaLOG INSULIN (NovoLOG) PER UNIT SC ×4 (07:30→21:55)
[2017-05-11] MEDS: SYMBICORT 160/4.5MCG INHALER 6GM INH ×2 (07:52→20:06)
[2017-05-11] MEDS: IPRATROPIUM 0.5MG/ALBUTEROL 2.5MG INH SOL UD 3ML (DUONEB)(J7620) NEB ×3 (08:00→20:00)
[2017-05-11] MEDS: ATORVASTATIN 20 MG TAB PO (08:31)
[2017-05-11] MEDS: VITAMIN D 1,000 INTERNATIONAL UNITS TABLET PO (08:31)
[2017-05-11] MEDS: predniSONE 20 MG TAB PO (08:31)
[2017-05-11] MEDS: metFORMIN (GLUCOPHAGE) 1000 MG TABLET PO ×2 (08:31→18:06)
[2017-05-11] MEDS: BENZONATATE 100 MG CAP PO ×3 (08:31→20:36)
[2017-05-11] MEDS: glyBURIDE 2.5 MG TAB PO ×2 (08:32→18:06)
[2017-05-11] MEDS: SENOKOT S TAB PO ×2 (08:32→20:36)
[2017-05-11] MEDS: ENOXAPARIN 40 MG/0.4 ML SYRINGE (J1650) SC (08:33)
[2017-05-11] MEDS: LOPERAMIDE 2 MG CAP PO (18:06)
[2017-05-12 03:22] LABS: BEDSIDE GLUCOSE 263 MG/DL (80-115)
[2017-05-12 03:22] LABS: BEDSIDE GLUCOSE 100 MG/DL (80-115)
[2017-05-12 03:22] LABS: BEDSIDE GLUCOSE 198 MG/DL (80-115)
[2017-05-12 03:22] LABS: BEDSIDE GLUCOSE 206 MG/DL (80-115)
[2017-05-12] MEDS: LEVOTHYROXINE 125MCG TABLET (0.125MG) PO (05:13)
[2017-05-12 06:05] LABS: HEMOGLOBIN 14.8 g/dl (12.0-15.5); MEAN CORPUSCULAR HEMOGLOBIN 29.8 pg (27.0-33.0); MEAN CORPUSCULAR HGB CONC 32.9 g/dl (32.0-36.5); MEAN CORPUSCULAR VOLUME 90.7 fl (80.0-96.0); PLATELET COUNT, AUTOMATED 196 10^3/uL (150-450); RED BLOOD COUNT 4.96 10^6/uL (4.00-5.40); RED CELL DISTRIBUTION WIDTH 13.2 % (11.5-14.5); WHITE BLOOD COUNT 9.6 10^3/uL (4.0-10.0)
[2017-05-12] MEDS: SYMBICORT 160/4.5MCG INHALER 6GM INH (07:25)
[2017-05-12] MEDS: HumaLOG INSULIN (NovoLOG) PER UNIT SC ×2 (07:30→12:00)
[2017-05-12] MEDS: SENOKOT S TAB PO (09:00)
[2017-05-12] MEDS: ENOXAPARIN 40 MG/0.4 ML SYRINGE (J1650) SC (09:00)
[2017-05-12] MEDS: glyBURIDE 2.5 MG TAB PO (10:18)
[2017-05-12] MEDS: LOPERAMIDE 2 MG CAP PO (10:18)
[2017-05-12] MEDS: metFORMIN (GLUCOPHAGE) 1000 MG TABLET PO (10:18)
[2017-05-12] MEDS: VITAMIN D 1,000 INTERNATIONAL UNITS TABLET PO (10:18)
[2017-05-12] MEDS: predniSONE 20 MG TAB PO (10:18)
[2017-05-12] MEDS: ATORVASTATIN 20 MG TAB PO (10:19)
[2017-05-12] MEDS: BENZONATATE 100 MG CAP PO (10:19)
[2017-05-13 11:45] LABS: BEDSIDE GLUCOSE 117 MG/DL (80-115)
[2017-05-13 11:45] LABS: BEDSIDE GLUCOSE 76 MG/DL (80-115)
== END 2017-05-12 14:15 | disposition home or self-care (01) | DRG 140 ==
LOC: M MS5PR 05-08 18:09 → M ED 01:12 → M ED INP 03:05 → M PCU 07:55
DX: J44.1 Chronic obstructive pulmonary disease with (acute) exacerbation (principal); J96.00 Acute respiratory failure, unspecified whether with hypoxia or hypercapnia; Z99.81 Dependence on supplemental oxygen; E78.5 Hyperlipidemia, unspecified; E11.9 Type 2 diabetes mellitus without complications; E89.0 Postprocedural hypothyroidism; Z87.891 Personal history of nicotine dependence; Z98.51 Tubal ligation status; Z88.8 Allergy status to other drugs, medicaments and biological substances; Z79.84 Long term (current) use of oral hypoglycemic drugs; Z79.899 Other long term (current) drug therapy

== ENCOUNTER → 2017-06-12 | Outpatient (REF) | payer OTHER | LOC: M SFHCLERA 12:36 | DX: L82.1 Other seborrheic keratosis (principal) ==

== ENCOUNTER → 2017-06-14 | Outpatient (CLI) | payer OTHER ==
[2017-06-14 10:40] LABS: ALBUMIN 3.3 GM/DL (3.2-5.2); ALBUMIN/GLOBULIN RATIO 0.97 (1.00-1.93); ALKALINE PHOSPHATASE 144 U/L (45-117); ALT/SGPT 19 U/L (12-78); ANION GAP 6 MEQ/L (8-16); AST/SGOT 8 U/L (7-37); BILIRUBIN,TOTAL 0.2 MG/DL (0.2-1.0); BLOOD UREA NITROGEN 12 MG/DL (7-18); CALCIUM LEVEL 9.6 MG/DL (8.8-10.2); CARBON DIOXIDE LEVEL 32 MEQ/L (21-32); CHLORIDE LEVEL 102 MEQ/L (98-107); CREATININE FOR GFR 0.66 MG/DL (0.55-1.30); GLOMERULAR FILTRATION RATE > 60.0 (>45); GLUCOSE, FASTING 258 MG/DL (70-100); POTASSIUM SERUM 4.3 MEQ/L (3.5-5.1); SODIUM LEVEL 140 MEQ/L (136-145); TOTAL PROTEIN 6.7 GM/DL (6.4-8.2)
[2017-06-14 11:41] LABS: ESTIMATED AVERAGE GLUCOSE 203 MG/DL (60-110); HEMOGLOBIN A1c 8.7 %
== END ==
LOC: M LAB 09:12
DX: E11.9 Type 2 diabetes mellitus without complications (principal)
CPT/HCPCS: 80053

== ENCOUNTER 2017-08-14 12:31 | Emergency (ER) | payer OTHER ==
[2017-08-14 13:55] LABS: BASO % 0.3 % (0.0-1.0); EOS % 0.6 % (0.0-3.0); HEMATOCRIT 43.4 % (36.0-47.0); HEMOGLOBIN 14.2 g/dl (12.0-15.5); IMMATURE GRANULOCYTE % 0.6 % (0-3.0); LYMPH # 1.8 10^3/uL (1.5-4.5); LYMPH % 25.2 % (24.0-44.0); MEAN CORPUSCULAR HEMOGLOBIN 29.6 pg (27.0-33.0); MEAN CORPUSCULAR HGB CONC 32.7 g/dl (32.0-36.5); MEAN CORPUSCULAR VOLUME 90.6 fl (80.0-96.0); MONO # 0.5 10^3/uL (0.0-0.8); MONO % 6.8 % (0.0-5.0); NEUTROPHILS # 4.7 10^3/uL (1.8-7.7); NEUTROPHILS % 66.5 % (36.0-66.0); PLATELET COUNT, AUTOMATED 201 10^3/uL (150-450); RED BLOOD COUNT 4.79 10^6/uL (4.00-5.40); RED CELL DISTRIBUTION WIDTH 13.8 % (11.5-14.5)
[2017-08-14 13:56] LABS: KETONE, URINE AUTO RFX TRACE mg/dL (NEGATIVE); LEUKOCYTE ESTERASE UR AUTO RFX 3+ (NEGATIVE); NITRITE, URINE AUTO RFX NEGATIVE (NEGATIVE); RBC, URINE AUTO RFX 31 /HPF (0-3); SPECIFIC GRAVITY UR AUTO RFX 1.028 (1.002-1.035); SQUAM EPITHELIAL CELL UR AURFX 3 /HPF (0-6); WBC, URINE AUTO RFX TNTC /HPF (0-3)
[2017-08-14 14:12] LABS: ANION GAP 8 MEQ/L (8-16); BLOOD UREA NITROGEN 15 MG/DL (7-18); CALCIUM LEVEL 8.7 MG/DL (8.8-10.2); CARBON DIOXIDE LEVEL 27 MEQ/L (21-32); CHLORIDE LEVEL 108 MEQ/L (98-107); CREATININE FOR GFR 0.84 MG/DL (0.55-1.30); GLOMERULAR FILTRATION RATE > 60.0 (>45); GLUCOSE, FASTING 275 MG/DL (70-100); POTASSIUM SERUM 4.1 MEQ/L (3.5-5.1); SODIUM LEVEL 143 MEQ/L (136-145)
[2017-08-14] MEDS: CEPHALEXIN 500 MG CAP PO (14:45)
[2017-08-14] MEDS: PHENAZOPYRIDINE 100 MG TAB PO (14:47)
== END 2017-08-14 14:51 | disposition home or self-care (01) ==
LOC: M ED 12:31
DX: N30.00 Acute cystitis without hematuria (principal); R60.0 Localized edema; J45.909 Unspecified asthma, uncomplicated; Z99.81 Dependence on supplemental oxygen; E11.9 Type 2 diabetes mellitus without complications; K21.9 Gastro-esophageal reflux disease without esophagitis; G43.909 Migraine, unspecified, not intractable, without status migrainosus; E78.9 Disorder of lipoprotein metabolism, unspecified; Z87.891 Personal history of nicotine dependence; Z88.8 Allergy status to other drugs, medicaments and biological substances; Z79.899 Other long term (current) drug therapy; Z79.84 Long term (current) use of oral hypoglycemic drugs; Z79.51 Long term (current) use of inhaled steroids
CPT/HCPCS: 93971

== ENCOUNTER → 2017-11-06 | Outpatient (REF) | payer OTHER ==
[2017-11-06 23:49] LABS: CHLAMYDIA DNA AMPLIFICATION NEGATIVE (NEGATIVE); GC DNA AMPLIFICATION NEGATIVE (NEGATIVE)
== END ==
LOC: M LAB REF 17:12
DX: R30.0 Dysuria (principal)

== ENCOUNTER → 2017-11-27 | Outpatient (REF) | payer OTHER ==
[2017-11-27 14:09] LABS: APPEARANCE, URINE TURBID (CLEAR); BACTERIA, URINE AUTO 1+ (NEGATIVE); BILIRUBIN, URINE AUTO NEGATIVE (NEGATIVE); BLOOD, URINE BLOOD 1+ (NEGATIVE); COLOR, URINE YELLOW (YELLOW); GLUCOSE, URINE (UA) AUTO 3+ mg/dL (NEGATIVE); KETONE, URINE AUTO TRACE mg/dL (NEGATIVE); LEUKOCYTE ESTERASE, URINE AUTO 3+ (NEGATIVE); NITRITE, URINE AUTO NEGATIVE (NEGATIVE); PROTEIN, URINE AUTO 1+ mg/dL (NEGATIVE); RBC, URINE AUTO 0 /HPF (0-3); SPECIFIC GRAVITY URINE AUTO 1.037 (1.002-1.035); SQUAMOUS EPITHELIAL CELL UR AU 0 /HPF (0-6); UROBILINOGEN, URINE AUTO 0.2 mg/dL (0.0-2.0); WBC, URINE AUTO TNTC /HPF (0-3)
== END ==
LOC: M LAB REF 13:20
DX: N39.0 Urinary tract infection, site not specified (principal)
CPT/HCPCS: 81001

== ENCOUNTER → 2017-12-24 | Outpatient (CLI) | payer OTHER ==
[2017-12-24 16:45] LABS: ALBUMIN 3.5 GM/DL (3.2-5.2); ALBUMIN/GLOBULIN RATIO 1.06 (1.00-1.93); ALKALINE PHOSPHATASE 168 U/L (45-117); ALT/SGPT 21 U/L (12-78); ANION GAP 7 MEQ/L (8-16); AST/SGOT 10 U/L (7-37); BILIRUBIN,TOTAL 0.4 MG/DL (0.2-1.0); BLOOD UREA NITROGEN 12 MG/DL (7-18); CALCIUM LEVEL 9.3 MG/DL (8.8-10.2); CARBON DIOXIDE LEVEL 31 MEQ/L (21-32); CHLORIDE LEVEL 98 MEQ/L (98-107); CHOLESTEROL LEVEL 246 MG/DL (<200); CREATININE FOR GFR 0.84 MG/DL (0.55-1.30); FREE T4 1.33 NG/DL (0.76-1.46); GLOMERULAR FILTRATION RATE > 60.0 (>45); GLUCOSE, FASTING 356 MG/DL (70-100); HDL CHOLESTEROL 43 MG/DL (>40); LDL CHOLESTEROL 124 MG/DL (<100); NON-HDL-C 203 MG/DL; POTASSIUM SERUM 4.5 MEQ/L (3.5-5.1); SODIUM LEVEL 136 MEQ/L (136-145); TOTAL PROTEIN 6.8 GM/DL (6.4-8.2); TRIGLYCERIDES LEVEL 397 MG/DL (<150)
[2017-12-24 16:48] LABS: TOTAL 25(OH) VITAMIN D 31.7 NG/ML (30.0-100.0)
[2017-12-24 16:52] LABS: ESTIMATED AVERAGE GLUCOSE 289 MG/DL (60-110); HEMOGLOBIN A1c 11.7 %
[2017-12-24 17:21] LABS: CREATININE, URINE 80.2 MG/DL; MALB URINE SIEMENS 14.5 MG/L
== END ==
LOC: M WUC 10:43
DX: E11.9 Type 2 diabetes mellitus without complications (principal); E03.9 Hypothyroidism, unspecified; E78.5 Hyperlipidemia, unspecified; E55.9 Vitamin D deficiency, unspecified
CPT/HCPCS: 84443

== ENCOUNTER → 2018-01-13 | Outpatient (REF) | payer OTHER ==
[2018-01-13 15:04] LABS: AMORPHOUS SEDIMENT MODERATE (NEGATIVE); APPEARANCE, URINE CLOUDY (CLEAR); BACTERIA, URINE AUTO NEGATIVE (NEGATIVE); BILIRUBIN, URINE AUTO NEGATIVE (NEGATIVE); BLOOD, URINE BLOOD 2+ (NEGATIVE); COLOR, URINE YELLOW (YELLOW); GLUCOSE, URINE (UA) AUTO 3+ mg/dL (NEGATIVE); KETONE, URINE AUTO NEGATIVE (NEGATIVE); LEUKOCYTE ESTERASE, URINE AUTO 3+ (NEGATIVE); MUCUS, URINE SMALL (NEGATIVE); NITRITE, URINE AUTO NEGATIVE (NEGATIVE); PROTEIN, URINE AUTO NEGATIVE (NEGATIVE); RBC, URINE AUTO 7 /HPF (0-3); SQUAMOUS EPITHELIAL CELL UR AU 1 /HPF (0-6); UROBILINOGEN, URINE AUTO 0.2 mg/dL (0.0-2.0); WBC, URINE AUTO TNTC /HPF (0-3)
== END ==
LOC: M LAB REF 13:39
DX: N39.0 Urinary tract infection, site not specified (principal)
CPT/HCPCS: 81001

== ENCOUNTER → 2018-03-03 | Outpatient (REF) | payer OTHER ==
[~2018-03-03] MED LIST changes: -CALC1TAB17 PO; +CALC1TAB97 PO; +CEFT500T3 PO; -DRIS50002 PO; +DRIS50003 PO; +GABA-843 PO; +IPRA0.00 INH; +IPRA0.00 NEB; -IPRASOL4 NEB; +KEFL500C17 PO; +LEVO500T3 PO; +LOPE2CA PO; +PYRI1TAB5 PO; +RISATAB3 PO; +SPIR1CAP INH; +TRUL10IN SC; +VENTAER INH; +VITA200015 PO
== END ==
LOC: M LAB REF 13:11
PROVIDERS: ATTEND Advanced Practice Midwife
DX: R30.0 Dysuria (principal)

== ENCOUNTER → 2018-04-14 | Outpatient (REF) | payer OTHER | LOC: M LAB REF 12:04 | PROVIDERS: ATTEND Advanced Practice Midwife | DX: R30.0 Dysuria (principal) ==

== ENCOUNTER → 2018-06-25 | Outpatient (REF) | payer OTHER ==
[~2018-06-25] MED LIST changes: -CALC1TAB97 PO; +OYST500T78 PO; +PRED-351 PO; -PRED10TA PO
[2018-06-25 21:35] LABS: HEMOGLOBIN A1c 11.3 %
[2018-06-25 21:47] LABS: ALBUMIN 3.4 GM/DL (3.2-5.2); ALT/SGPT 16 U/L (12-78); BILIRUBIN,TOTAL 0.2 MG/DL (0.2-1.0); BLOOD UREA NITROGEN 13 MG/DL (7-18); CALCIUM LEVEL 8.6 MG/DL (8.8-10.2); CARBON DIOXIDE LEVEL 30 MEQ/L (21-32); CHLORIDE LEVEL 98 MEQ/L (98-107); CREATININE FOR GFR 0.93 MG/DL (0.55-1.30); FREE T4 1.42 NG/DL (0.76-1.46); GLOMERULAR FILTRATION RATE > 60.0 (>45); GLUCOSE, FASTING 557 MG/DL (70-100); POTASSIUM SERUM 4.4 MEQ/L (3.5-5.1); SODIUM LEVEL 136 MEQ/L (136-145)
== END ==
LOC: M SFHCADAM 14:39
PROVIDERS: ATTEND Family Medicine
DX: E11.9 Type 2 diabetes mellitus without complications (principal); E03.9 Hypothyroidism, unspecified

== ENCOUNTER → 2018-11-13 | Outpatient (REF) | payer OTHER ==
[~2018-11-13] MED LIST changes: +OYST500T13 PO; -OYST500T78 PO
[2018-11-13 19:49] LABS: HEMATOCRIT 48.1 % (36.0-47.0); HEMOGLOBIN 15.6 g/dl (12.0-15.5); MEAN CORPUSCULAR HEMOGLOBIN 29.5 pg (27.0-33.0); MEAN CORPUSCULAR HGB CONC 32.4 g/dl (32.0-36.5); MEAN CORPUSCULAR VOLUME 91.1 fl (80.0-96.0); PLATELET COUNT, AUTOMATED 194 10^3/uL (150-450); RED BLOOD COUNT 5.28 10^6/uL (4.00-5.40); WHITE BLOOD COUNT 5.8 10^3/uL (4.0-10.0)
[2018-11-13 20:04] LABS: ALBUMIN 3.5 GM/DL (3.2-5.2); ALT/SGPT 19 U/L (12-78); BILIRUBIN,TOTAL 0.2 MG/DL (0.2-1.0); BLOOD UREA NITROGEN 10 MG/DL (7-18); CALCIUM LEVEL 9.2 MG/DL (8.8-10.2); CARBON DIOXIDE LEVEL 35 MEQ/L (21-32); CHLORIDE LEVEL 101 MEQ/L (98-107); CHOLESTEROL LEVEL 224 MG/DL (<200); CHOLESTEROL RISK RATIO 4.571 (<5); CREATININE FOR GFR 0.74 MG/DL (0.55-1.30); FREE T4 1.51 NG/DL (0.76-1.46); GLOMERULAR FILTRATION RATE > 60.0 (>45); GLUCOSE, FASTING 232 MG/DL (70-100); HDL CHOLESTEROL 49 MG/DL (>40); LDL CHOLESTEROL 133 MG/DL (<100); NON-HDL-C 175 MG/DL; POTASSIUM SERUM 4.8 MEQ/L (3.5-5.1); SODIUM LEVEL 139 MEQ/L (136-145); TOTAL PROTEIN 6.9 GM/DL (6.4-8.2); TRIGLYCERIDES LEVEL 212 MG/DL (<150)
[2018-11-13 20:07] LABS: HEMOGLOBIN A1c 9.8 %
[2018-11-13 20:30] LABS: CREATININE, URINE 72.6 MG/DL; MALB URINE SIEMENS 5.8 MG/L; MAU/CREAT RATIO 7.9 MCG/MG (0.0-30.0)
== END ==
LOC: M SFHCADAM 11:47
PROVIDERS: ATTEND Physician Assistant Medical
DX: J44.9 Chronic obstructive pulmonary disease, unspecified (principal); E11.9 Type 2 diabetes mellitus without complications; E03.9 Hypothyroidism, unspecified; E78.5 Hyperlipidemia, unspecified

== ENCOUNTER → 2019-02-26 | Outpatient (REF) | payer OTHER ==
[2019-02-26 16:11] LABS: ALBUMIN 3.8 GM/DL (3.2-5.2); ALT/SGPT 17 U/L (12-78); BILIRUBIN,TOTAL 0.3 MG/DL (0.2-1.0); BLOOD UREA NITROGEN 9 MG/DL (7-18); CALCIUM LEVEL 9.3 MG/DL (8.8-10.2); CARBON DIOXIDE LEVEL 31 MEQ/L (21-32); CHLORIDE LEVEL 102 MEQ/L (98-107); CHOLESTEROL LEVEL 202 MG/DL (<200); CREATININE FOR GFR 0.77 MG/DL (0.55-1.30); FREE T4 1.49 NG/DL (0.76-1.46); GLOMERULAR FILTRATION RATE > 60.0 (>45); GLUCOSE, FASTING 115 MG/DL (70-100); HDL CHOLESTEROL 44 MG/DL (>40); LDL CHOLESTEROL 96 MG/DL (<100); NON-HDL-C 158 MG/DL; SODIUM LEVEL 139 MEQ/L (136-145); TOTAL PROTEIN 7.1 GM/DL (6.4-8.2); TRIGLYCERIDES LEVEL 309 MG/DL (<150)
[2019-02-26 16:17] LABS: HEMOGLOBIN A1c 7.2 %
== END ==
LOC: M SFHCADAM 11:34
PROVIDERS: ATTEND Family Medicine
DX: E03.9 Hypothyroidism, unspecified (principal); E11.9 Type 2 diabetes mellitus without complications; E78.5 Hyperlipidemia, unspecified

== ENCOUNTER → 2019-11-02 | Outpatient (CLI) | payer OTHER ==
--- NOTE | 2019-11-12 10:09 | REP ---
LUNG SCREENING CT CLINICAL: High risk factors. Prior nicotine dependence. TECHNIQUE: Axial noncontrast low-dose images from the thoracic inlet to the upper abdomen viewed in lung windows only. COMPARISON: 07/20/2009. FINDINGS: Moderate emphysematous changes with minimal scattered scarring primarily noted at the apices and medial right middle lobe noted. Few scattered noncalcified part solid and solid densities measure up to 3 mm primarily noted in the right lower lobe (Image 58). No consolidation, further significant nodule, or mass lesion appreciated. No effusion. No pneumothorax. Tracheobronchial tree is patent. IMPRESSION: Moderate emphysematous changes. Lung-RADS Category 2. Management and recommendations include annual low-dose CT surveillance. MTDD
== END ==
LOC: M RAD 10:20
PROVIDERS: ATTEND Internal Medicine Pulmonary Disease
DX: Z87.891 Personal history of nicotine dependence (principal); R91.8 Other nonspecific abnormal finding of lung field

== ENCOUNTER → 2020-05-27 | Outpatient (CLI) | payer OTHER ==
[~2020-05-27] MED LIST changes: +GABA-282 PO; -GABA-843 PO; -GLYB5TA PO; +GLYB5TAB6 PO
[2020-05-27 15:59] LABS: HEMATOCRIT 51.6 % (36.0-47.0); HEMOGLOBIN 16.3 g/dl (12.0-15.5); MEAN CORPUSCULAR HEMOGLOBIN 29.5 pg (27.0-33.0); MEAN CORPUSCULAR HGB CONC 31.6 g/dl (32.0-36.5); MEAN CORPUSCULAR VOLUME 93.5 fl (80.0-96.0); PLATELET COUNT, AUTOMATED 194 10^3/uL (150-450); RED BLOOD COUNT 5.52 10^6/uL (4.00-5.40); WHITE BLOOD COUNT 6.7 10^3/uL (4.0-10.0)
[2020-05-27 16:13] LABS: ALBUMIN 3.7 GM/DL (3.2-5.2); ALT/SGPT 16 U/L (12-78); BILIRUBIN,TOTAL 0.4 MG/DL (0.2-1.0); BLOOD UREA NITROGEN 13 MG/DL (7-18); CALCIUM LEVEL 9.6 MG/DL (8.8-10.2); CARBON DIOXIDE LEVEL 32 MEQ/L (21-32); CHLORIDE LEVEL 102 MEQ/L (98-107); CHOLESTEROL LEVEL 226 MG/DL (<200); CHOLESTEROL RISK RATIO 4.913 (<5); CREATININE FOR GFR 0.77 MG/DL (0.55-1.30); FREE T4 1.67 NG/DL (0.76-1.46); GLOMERULAR FILTRATION RATE > 60.0 (>45); GLUCOSE, FASTING 183 MG/DL (70-100); HDL CHOLESTEROL 46 MG/DL (>40); LDL CHOLESTEROL 108 MG/DL (<100); NON-HDL-C 180 MG/DL; POTASSIUM SERUM 4.6 MEQ/L (3.5-5.1); SODIUM LEVEL 138 MEQ/L (136-145); THYROID STIMULATING HORMONE 0.913 uIU/ML (0.358-3.740); TOTAL PROTEIN 6.9 GM/DL (6.4-8.2); TRIGLYCERIDES LEVEL 362 MG/DL (<150)
[2020-05-27 19:50] LABS: HEMOGLOBIN A1c 8.6 %
[2020-05-30 14:43] LABS: TOTAL 25(OH) VITAMIN D 18.2 NG/ML (30.0-100.0)
== END ==
LOC: M WUC 10:44
PROVIDERS: ATTEND Family Medicine
DX: E03.9 Hypothyroidism, unspecified (principal); E11.9 Type 2 diabetes mellitus without complications; E78.5 Hyperlipidemia, unspecified; J44.9 Chronic obstructive pulmonary disease, unspecified; E55.9 Vitamin D deficiency, unspecified

== ENCOUNTER 2020-08-20 13:15 | Emergency (ER) | payer MEDICARE, OTHER ==
[~2020-08-20] VITALS: Ht 167.6 cm; Wt 75.0 kg
[~2020-08-20 13:15] MED LIST changes: -CEFD1CAP8 PO; +CEFD300C41 PO; -LEVO500T3 PO; +LEVO500T4 PO
[2020-08-20 14:46] LABS: VENOUS BASE EXCESS 0.9 (-2.0-2.0); VENOUS HCO3 28.7 MEQ/L (23.0-27.0); VENOUS O2 SATURATION 57.5 % (60.0-80.0); VENOUS PARTIAL PRESSURE CO2 58.1 mmHg (38.0-50.0); VENOUS PARTIAL PRESSURE O2 28.4 mmHg (30.0-50.0); VENOUS PH 7.311 UNITS (7.330-7.430); VENOUS STANDARD HCO3 24.1 MEQ/L; VENOUS TOTAL CO2 30.4 MEQ/L (24.0-28.0)
[2020-08-20 14:54] LABS: BASO % 0.4 % (0.0-1.0); EOS % 0.2 % (0.0-3.0); HEMATOCRIT 47.2 % (36.0-47.0); HEMOGLOBIN 15.3 g/dl (12.0-15.5); LYMPH # 1.6 10^3/uL (1.5-5.0); LYMPH % 30.1 % (24.0-44.0); MEAN CORPUSCULAR HEMOGLOBIN 29.3 pg (27.0-33.0); MEAN CORPUSCULAR HGB CONC 32.4 g/dl (32.0-36.5); MEAN CORPUSCULAR VOLUME 90.4 fl (80.0-96.0); MONO # 0.5 10^3/uL (0.0-0.8); NEUTROPHILS # 3.2 10^3/uL (1.5-8.5); NEUTROPHILS % 58.9 % (36.0-66.0); PLATELET COUNT, AUTOMATED 177 10^3/uL (150-450); RED BLOOD COUNT 5.22 10^6/uL (4.00-5.40); WHITE BLOOD COUNT 5.4 10^3/uL (4.0-10.0)
[2020-08-20 15:21] LABS: ALBUMIN 3.4 GM/DL (3.2-5.2); BILIRUBIN,DIRECT 0.1 MG/DL (0.0-0.2); BILIRUBIN,TOTAL 0.4 MG/DL (0.2-1.0); THYROID STIMULATING HORMONE 0.684 uIU/ML (0.358-3.740); TOTAL PROTEIN 6.9 GM/DL (6.4-8.2)
[2020-08-20] MEDS: COMBIVENT RESPIMAT 100-20MCG INHALER 4GM INH SCH ×3 (16:08→17:01)
[2020-08-20] MEDS ORDERED: predniSONE 20 MG TAB PO ONE (18:05)
[2020-08-20] MEDS ORDERED: PRED20TA PO (18:05)
[2020-08-20 18:15] VITALS: BP 121/58
== END 2020-08-20 18:24 | disposition home or self-care (01) ==
LOC: M ED 13:45
DX: J44.1 Chronic obstructive pulmonary disease with (acute) exacerbation (principal); B34.8 Other viral infections of unspecified site; B34.1 Enterovirus infection, unspecified; E11.9 Type 2 diabetes mellitus without complications; E78.5 Hyperlipidemia, unspecified; E05.00 Thyrotoxicosis with diffuse goiter without thyrotoxic crisis or storm; Z87.891 Personal history of nicotine dependence; Z79.4 Long term (current) use of insulin; Z79.899 Other long term (current) drug therapy; Z88.8 Allergy status to other drugs, medicaments and biological substances
CPT/HCPCS: 71045; 80047; 80076; 82803; 83605; 83880; 84443; 85025; 87040; 87798; 93005; 93041; 94640; 99285; J7512

== ENCOUNTER → 2020-08-29 | Outpatient (CLI) | payer OTHER ==
[~2020-08-29] MED LIST changes: +CEFD1CAP8 PO; -CEFD300C41 PO; +LEVO500T3 PO; -LEVO500T4 PO
[2020-08-29 12:25] LABS: HEMOGLOBIN A1c 7.4 %
[2020-08-29 12:37] LABS: BLOOD UREA NITROGEN 12 MG/DL (7-18); CALCIUM LEVEL 8.8 MG/DL (8.8-10.2); CARBON DIOXIDE LEVEL 29 MEQ/L (21-32); CHLORIDE LEVEL 99 MEQ/L (98-107); CREATININE FOR GFR 0.84 MG/DL (0.55-1.30); GLOMERULAR FILTRATION RATE > 60.0 (>45); GLUCOSE, FASTING 248 MG/DL (70-100); POTASSIUM SERUM 4.1 MEQ/L (3.5-5.1); SODIUM LEVEL 135 MEQ/L (136-145)
== END ==
LOC: M WUC 10:15
PROVIDERS: ATTEND Family Medicine
DX: E55.9 Vitamin D deficiency, unspecified (principal); E11.9 Type 2 diabetes mellitus without complications

== ENCOUNTER → 2020-08-29 | Outpatient (REF) | payer OTHER | LOC: M LAB REF 16:39 | PROVIDERS: ATTEND Physician Assistant | DX: N39.0 Urinary tract infection, site not specified (principal) ==

== ENCOUNTER → 2020-11-08 | Outpatient (CLI) | payer OTHER ==
[2020-11-08 16:15] LABS: HEMOGLOBIN A1c 7.4 %
[2020-11-08 16:34] LABS: BLOOD UREA NITROGEN 10 MG/DL (7-18); CALCIUM LEVEL 9.6 MG/DL (8.8-10.2); CARBON DIOXIDE LEVEL 29 MEQ/L (21-32); CHLORIDE LEVEL 104 MEQ/L (98-107); CREATININE FOR GFR 0.78 MG/DL (0.55-1.30); FREE T4 1.94 NG/DL (0.76-1.46); GLOMERULAR FILTRATION RATE > 60.0 (>45); GLUCOSE, FASTING 125 MG/DL (70-100); POTASSIUM SERUM 4.6 MEQ/L (3.5-5.1); SODIUM LEVEL 141 MEQ/L (136-145); THYROID STIMULATING HORMONE 0.144 uIU/ML (0.358-3.740)
== END ==
LOC: M WUC 10:45
PROVIDERS: ATTEND Family Medicine
DX: E03.9 Hypothyroidism, unspecified (principal); E11.9 Type 2 diabetes mellitus without complications

== ENCOUNTER → 2020-11-21 | Outpatient (CLI) | payer OTHER ==
--- NOTE | 2020-11-21 12:55 | REP ---
INDICATION: NICOTINE DEPENDENCE. COMPARISON: Multiple the latest 11/02/2019 also low-dose screening CT of the lungs TECHNIQUE: Axial noncontrast images from the thoracic inlet to the upper abdomen using low-dose lung screening technique (LDCT). As per the protocol only lung window images were sent to the read station for interpretation. FINDINGS: There is biapical pleuroparenchymal scarring status quo. There are no new abnormal nodules, masses, or opacities. There are mild emphysematous changes status quo. Grossly, the mediastinum and pulmonary angely appear stable. Grossly, the imaged upper abdomen and imaged osseous structures appear stable. IMPRESSION: Stable lung rads category 2 low-dose screening CT examination of the lungs. <Electronically signed by Mitul Josue > 11/21/20 [id number]
== END ==
LOC: M RAD 12:11
PROVIDERS: ATTEND Internal Medicine Pulmonary Disease
DX: Z12.2 Encounter for screening for malignant neoplasm of respiratory organs (principal); Z87.891 Personal history of nicotine dependence; J43.9 Emphysema, unspecified; J98.4 Other disorders of lung

== ENCOUNTER → 2020-12-07 | Outpatient (REF) | payer OTHER | LOC: M SFHCADAM 13:21 | PROVIDERS: ATTEND Family Medicine | DX: N39.0 Urinary tract infection, site not specified (principal) ==

== ENCOUNTER → 2021-04-06 | Outpatient (REF) | payer OTHER ==
[~2021-04-06] MED LIST changes: -CEFD1CAP8 PO; +CEFD300C41 PO; -LEVO500T3 PO; +LEVO500T4 PO
== END ==
LOC: M WUC 20:21
PROVIDERS: ATTEND Physician Assistant
DX: R30.0 Dysuria (principal)

== ENCOUNTER → 2021-04-20 | Outpatient (REF) | payer OTHER | LOC: M SFHCADAM 16:13 | PROVIDERS: ATTEND Family Medicine | DX: N39.0 Urinary tract infection, site not specified (principal) ==

== ENCOUNTER → 2021-04-27 | Outpatient (REF) | payer OTHER ==
[2021-04-27 17:26] LABS: AMORPHOUS SEDIMENT SMALL (NEGATIVE); APPEARANCE, URINE CLOUDY (CLEAR); BACTERIA, URINE AUTO NEGATIVE (NEGATIVE); BILIRUBIN, URINE AUTO NEGATIVE (NEGATIVE); BLOOD, URINE BLOOD NEGATIVE (NEGATIVE); COLOR, URINE YELLOW (YELLOW); GLUCOSE, URINE (UA) AUTO 3+ mg/dL (NEGATIVE); KETONE, URINE AUTO TRACE mg/dL (NEGATIVE); LEUKOCYTE ESTERASE, URINE AUTO 2+ (NEGATIVE); MUCUS, URINE SMALL (NEGATIVE); NITRITE, URINE AUTO NEGATIVE (NEGATIVE); PROTEIN, URINE AUTO 1+ mg/dL (NEGATIVE); RBC, URINE AUTO 6 /HPF (0-3); SQUAMOUS EPITHELIAL CELL UR AU 7 /HPF (0-6); WBC, URINE AUTO TNTC /HPF (0-3)
== END ==
LOC: M SFHCADAM 15:43
PROVIDERS: ATTEND Physician Assistant
DX: R30.0 Dysuria (principal)

== ENCOUNTER → 2021-07-13 | Outpatient (REF) | payer OTHER ==
[2021-07-13 16:44] LABS: APPEARANCE, URINE HAZY (CLEAR); BACTERIA, URINE AUTO 1+ (NEGATIVE); BILIRUBIN, URINE AUTO NEGATIVE (NEGATIVE); BLOOD, URINE BLOOD NEGATIVE (NEGATIVE); COLOR, URINE YELLOW (YELLOW); GLUCOSE, URINE (UA) AUTO 1+ mg/dL (NEGATIVE); KETONE, URINE AUTO TRACE mg/dL (NEGATIVE); LEUKOCYTE ESTERASE, URINE AUTO 2+ (NEGATIVE); MUCUS, URINE SMALL (NEGATIVE); NITRITE, URINE AUTO NEGATIVE (NEGATIVE); PROTEIN, URINE AUTO NEGATIVE (NEGATIVE); RBC, URINE AUTO 1 /HPF (0-3); SPECIFIC GRAVITY URINE AUTO 1.017 (1.002-1.035); SQUAMOUS EPITHELIAL CELL UR AU 12 /HPF (0-6); UROBILINOGEN, URINE AUTO 0.2 mg/dL (0.0-2.0); WBC, URINE AUTO 100 /HPF (0-3)
[2021-07-13 17:16] LABS: BLOOD UREA NITROGEN 12 MG/DL (7-18); CALCIUM LEVEL 9.2 MG/DL (8.8-10.2); CARBON DIOXIDE LEVEL 36 MEQ/L (21-32); CHLORIDE LEVEL 98 MEQ/L (98-107); CREATININE FOR GFR 0.76 MG/DL (0.55-1.30); FREE T4 1.46 NG/DL (0.76-1.46); GLOMERULAR FILTRATION RATE > 60.0 (>45); GLUCOSE, FASTING 277 MG/DL (70-100); SODIUM LEVEL 137 MEQ/L (136-145); TOTAL 25(OH) VITAMIN D 19.3 NG/ML (30.0-100.0)
[2021-07-13 19:42] LABS: HEMOGLOBIN A1c 10.5 %
== END ==
LOC: M SFHCADAM 14:39
PROVIDERS: ATTEND Family Medicine
DX: R30.0 Dysuria (principal); E55.9 Vitamin D deficiency, unspecified; E11.9 Type 2 diabetes mellitus without complications; E03.9 Hypothyroidism, unspecified

== ENCOUNTER → 2021-12-14 | Outpatient (REF) | payer OTHER ==
[~2021-12-14] MED LIST changes: +LEVO1TAB39 PO; -LEVO500T4 PO
== END ==
LOC: M LAB REF 16:34
PROVIDERS: ATTEND Physician Assistant
DX: R30.0 Dysuria (principal)

== ENCOUNTER → 2022-04-17 | Outpatient (CLI) | payer OTHER | LOC: M PLAIMG 08:48 | PROVIDERS: ATTEND Internal Medicine Pulmonary Disease | DX: J44.9 Chronic obstructive pulmonary disease, unspecified (principal) ==

== ENCOUNTER → 2022-04-19 | Outpatient (REF) | payer OTHER ==
[2022-04-19 16:21] LABS: BASO % 0.3 % (0.0-1.0); EOS % 0.1 % (0.0-3.0); HEMATOCRIT 47.7 % (36.0-47.0); HEMOGLOBIN 15.6 g/dl (12.0-15.5); LYMPH # 3.3 10^3/uL (1.5-5.0); LYMPH % 34.8 % (24.0-44.0); MEAN CORPUSCULAR HEMOGLOBIN 30.6 pg (27.0-33.0); MEAN CORPUSCULAR HGB CONC 32.7 g/dl (32.0-36.5); MEAN CORPUSCULAR VOLUME 93.5 fl (80.0-96.0); MONO # 0.7 10^3/uL (0.0-0.8); MONO % 6.8 % (2.0-8.0); NEUTROPHILS # 5.4 10^3/uL (1.5-8.5); NEUTROPHILS % 57.4 % (36.0-66.0); PLATELET COUNT, AUTOMATED 204 10^3/uL (150-450); WHITE BLOOD COUNT 9.5 10^3/uL (4.0-10.0)
[2022-04-19 17:06] LABS: ALBUMIN 3.6 G/DL (3.2-5.2); ALKALINE PHOSPHATASE 110 U/L (46-116); ALT/SGPT 17 U/L (7.0-40); AST/SGOT 16 U/L (<34); BILIRUBIN,TOTAL 0.4 MG/DL (0.3-1.2); BLOOD UREA NITROGEN 13 MG/DL (9-23); CALCIUM LEVEL 9.3 MG/DL (8.3-10.6); CARBON DIOXIDE LEVEL 32 MMOL/L (20-31); CHLORIDE LEVEL 96 MMOL/L (98-107); CHOLESTEROL LEVEL 208 MG/DL (<200); CHOLESTEROL RISK RATIO 4.11 (<5); CREATININE FOR GFR 0.72 MG/DL (0.55-1.30); GLOMERULAR FILTRATION RATE > 60.0 (>45); GLUCOSE, FASTING 409 MG/DL (74-106); HDL CHOLESTEROL 50.6 MG/DL (>40); NON-HDL-C 157.4 MG/DL; POTASSIUM SERUM 4.5 MMOL/L (3.5-5.1); SODIUM LEVEL 135 MMOL/L (136-145); TOTAL 25(OH) VITAMIN D 19.1 NG/ML (20.0-100.0); TOTAL PROTEIN 6.4 G/DL (5.7-8.2); TRIGLYCERIDES LEVEL 377 MG/DL (<150)
[2022-04-19 17:10] LABS: HEMOGLOBIN A1c 10.4 % (4.0-6.0)
== END ==
LOC: M SFHCADAM 14:36
PROVIDERS: ATTEND Physician Assistant
DX: Z00.00 Encounter for general adult medical examination without abnormal findings (principal); N39.0 Urinary tract infection, site not specified; E11.9 Type 2 diabetes mellitus without complications; J44.9 Chronic obstructive pulmonary disease, unspecified; E78.5 Hyperlipidemia, unspecified; E55.9 Vitamin D deficiency, unspecified

== ENCOUNTER 2022-04-27 14:09 | Inpatient (IN) | payer OTHER ==
[~2022-04-27] VITALS: Ht 167.6 cm; Wt 76.8 kg
[2022-04-27] MEDS ORDERED: ALBUTEROL SULFATE 2.5MG/0.5ML INH NEB SOLN NEB ONE (15:00)
[2022-04-27] MEDS ORDERED: IPRATROPIUM 0.5MG/ALBUTEROL 2.5MG INH SOL UD 3ML (DUONEB) NEB ONE (15:00)
[2022-04-27 15:07] LABS: BASO % 0.3 % (0.0-1.0); HEMATOCRIT 44.8 % (36.0-47.0); HEMOGLOBIN 14.7 g/dl (12.0-15.5); LYMPH # 1.2 10^3/uL (1.5-5.0); MEAN CORPUSCULAR HEMOGLOBIN 30.6 pg (27.0-33.0); MEAN CORPUSCULAR HGB CONC 32.8 g/dl (32.0-36.5); MEAN CORPUSCULAR VOLUME 93.3 fl (80.0-96.0); MONO # 0.9 10^3/uL (0.0-0.8); MONO % 7.8 % (2.0-8.0); NEUTROPHILS # 9.7 10^3/uL (1.5-8.5); NEUTROPHILS % 81.5 % (36.0-66.0); PLATELET COUNT, AUTOMATED 228 10^3/uL (150-450); WHITE BLOOD COUNT 11.9 10^3/uL (4.0-10.0)
[2022-04-27 15:43] LABS: CPK CREATINE PHOSPHOKINASE 48 U/L (34-145)
[2022-04-27] MEDS ORDERED: BENZONATATE 100MG CAPSULE PO ONE (16:20)
[2022-04-27 16:39] LABS: ALBUMIN 3.1 G/DL (3.2-5.2); ALKALINE PHOSPHATASE 141 U/L (46-116); ALT/SGPT 20 U/L (7.0-40); AST/SGOT 16 U/L (<34); BILIRUBIN,DIRECT 0.2 MG/DL (<0.4); BILIRUBIN,TOTAL 0.4 MG/DL (0.3-1.2); BLOOD UREA NITROGEN 12 MG/DL (9-23); CARBON DIOXIDE LEVEL 32 MMOL/L (20-31); CHLORIDE LEVEL 99 MMOL/L (98-107); CK-MB VALUE MASS < 1.0 NG/ML (<3.6); CREATININE FOR GFR 0.59 MG/DL (0.55-1.30); GLOMERULAR FILTRATION RATE > 60.0 (>45); GLUCOSE, FASTING 204 MG/DL (74-106); MB/CK RELATIVE INDEX 2.08 (< OR =4); POTASSIUM SERUM 3.8 MMOL/L (3.5-5.1); SODIUM LEVEL 137 MMOL/L (136-145); THYROID STIMULATING HORMONE 8.257 uIU/ML (0.55-4.78)
[2022-04-27] MEDS ORDERED: ISOVUE-370 76% 100ML VIAL As Ordered ONE (17:22)
[2022-04-27 17:34] LABS: TOTAL PROTEIN 6.8 G/DL (5.7-8.2)
[2022-04-27] MEDS ORDERED: cefTRIAXone SOD 1 GM in D5W MINI-BAG PLUS 50 ML IV ONE (19:05)
[2022-04-27] MEDS ORDERED: AZITHROMYCIN 250MG TABLET PO ONE (19:05)
[2022-04-27] MEDS ORDERED: ERGO500029 PO (20:41)
[2022-04-27] MEDS ORDERED: LEVO100T5 PO (20:41)
[2022-04-27] MEDS ORDERED: DULA3PEN SQ (20:41)
[2022-04-27] MEDS ORDERED: OYSTTAB3 PO (20:44)
[2022-04-27] MEDS ORDERED: BASA100I SC (20:44)
[2022-04-27] MEDS ORDERED: ALBU2.5V10 INH (20:44)
[2022-04-27] MEDS ORDERED: ACET-683 PO (20:44)
[2022-04-27] MEDS ORDERED: HOME MED LIST COMPLETE! XX SCH (20:45)
[2022-04-27] MEDS ORDERED: INSULIN LISPRO (NovoLOG) PER UNIT SC SCH (21:00)
[2022-04-27] MEDS ORDERED: GLUCAGON INJ 1MG VIAL SC PRN (22:00)
[2022-04-27] MEDS ORDERED: ALBUTEROL SULFATE 2.5MG/0.5ML INH NEB SOLN NEB PRN (22:00)
[2022-04-27] MEDS ORDERED: GLUCOSE 4GM CHEW TABLET PO PRN (22:00)
[2022-04-27] MEDS ORDERED: DEXTROSE 50% 50ML SYRINGE IV PRN (22:00)
[2022-04-27 23:42] VITALS: BP 110/74
[2022-04-28] MEDS: IPRATROPIUM 0.5MG/ALBUTEROL 2.5MG INH SOL UD 3ML (DUONEB) NEB SCH ×2 (02:00→06:59)
[2022-04-28 05:28] VITALS: BP 114/74
[2022-04-28] MEDS: LEVOTHYROXINE 100MCG TABLET (0.1MG) PO SCH (05:44)
[2022-04-28] MEDS: HEPARIN SOD (PORCINE) 5000UNITS/ML 1ML VIAL/SYRINGE SC SCH ×3 (05:44→21:02)
[2022-04-28 06:53] LABS: BLOOD UREA NITROGEN 13 MG/DL (9-23); CALCIUM LEVEL 9.1 MG/DL (8.3-10.6); CARBON DIOXIDE LEVEL 30 MMOL/L (20-31); CHLORIDE LEVEL 98 MMOL/L (98-107); CREATININE FOR GFR 0.56 MG/DL (0.55-1.30); GLOMERULAR FILTRATION RATE > 60.0 (>45); GLUCOSE, FASTING 291 MG/DL (74-106); POTASSIUM SERUM 4.7 MMOL/L (3.5-5.1); SODIUM LEVEL 134 MMOL/L (136-145)
[2022-04-28 06:56] LABS: FREE T4 1.24 NG/DL (0.89-1.76)
[2022-04-28] MEDS ORDERED: LEVALBUTEROL 1.25MG 0.5ML CONCENTRATE NEB INH PRN (07:55)
[2022-04-28] MEDS: LEVALBUTEROL 1.25MG 0.5ML CONCENTRATE NEB INH SCH ×5 (08:00→23:18)
[2022-04-28] MEDS ORDERED: methylPREDNISolone 40MG 1ML VIAL IV SCH (08:00)
[2022-04-28] MEDS: methylPREDNISolone 125MG 2ML VIAL IV SCH ×3 (08:42→21:02)
[2022-04-28] MEDS: ATORVASTATIN 20 MG TAB PO SCH (08:42)
[2022-04-28] MEDS: guaiFENesin ER 600 MG TAB PO SCH ×2 (08:42→21:02)
[2022-04-28] MEDS: INSULIN LISPRO (NovoLOG) PER UNIT SC SCH ×2 (08:43→13:01)
[2022-04-28 09:14] LABS: HEMATOCRIT 41.7 % (36.0-47.0); HEMOGLOBIN 13.7 g/dl (12.0-15.5); MEAN CORPUSCULAR HEMOGLOBIN 30.7 pg (27.0-33.0); MEAN CORPUSCULAR HGB CONC 32.9 g/dl (32.0-36.5); MEAN CORPUSCULAR VOLUME 93.5 fl (80.0-96.0); PLATELET COUNT, AUTOMATED 256 10^3/uL (150-450); RED BLOOD COUNT 4.46 10^6/uL (4.00-5.40); WHITE BLOOD COUNT 11.1 10^3/uL (4.0-10.0)
[2022-04-28 09:25] LABS: ALBUMIN 2.8 G/DL (3.2-5.2); ALKALINE PHOSPHATASE 131 U/L (46-116); ALT/SGPT 17 U/L (7.0-40); AST/SGOT 17 U/L (<34); BILIRUBIN,TOTAL 0.2 MG/DL (0.3-1.2); BLOOD UREA NITROGEN 13 MG/DL (9-23); CALCIUM LEVEL 9.1 MG/DL (8.3-10.6); CARBON DIOXIDE LEVEL 28 MMOL/L (20-31); CHLORIDE LEVEL 98 MMOL/L (98-107); CREATININE FOR GFR 0.57 MG/DL (0.55-1.30); GLOMERULAR FILTRATION RATE > 60.0 (>45); GLUCOSE, FASTING 294 MG/DL (74-106); POTASSIUM SERUM 4.6 MMOL/L (3.5-5.1); SODIUM LEVEL 132 MMOL/L (136-145); THYROID STIMULATING HORMONE 1.539 uIU/ML (0.55-4.78); TOTAL PROTEIN 6.1 G/DL (5.7-8.2)
[2022-04-28 09:41] LABS: HEMOGLOBIN A1c 10.3 % (4.0-6.0)
[2022-04-28 14:00] VITALS: BP 122/60
[2022-04-28] MEDS: cefTRIAXone SOD 1 GM in D5W MINI-BAG PLUS 50 ML IV SCH (17:28)
[2022-04-28] MEDS ORDERED: INSULIN LISPRO (NovoLOG) PER UNIT SC ONE ×2 (18:00→21:20)
[2022-04-28] MEDS ORDERED: LEVEMIR (INSULIN DETEMIR) 1 UNITS/0.01ML SC ONE (18:00)
[2022-04-28] MEDS: AZITHROMYCIN INJ 500 MG, VIAL MATE ADAPTER 1 EACH in NS 250 ML IV SCH (18:24)
[2022-04-28 21:10] VITALS: BP 106/57
[2022-04-28 21:12] LABS: BLOOD UREA NITROGEN 21 MG/DL (9-23); CALCIUM LEVEL 8.6 MG/DL (8.3-10.6); CARBON DIOXIDE LEVEL 29 MMOL/L (20-31); CHLORIDE LEVEL 100 MMOL/L (98-107); CREATININE FOR GFR 0.73 MG/DL (0.55-1.30); GLOMERULAR FILTRATION RATE > 60.0 (>45); POTASSIUM SERUM 4.4 MMOL/L (3.5-5.1); SODIUM LEVEL 133 MMOL/L (136-145)
[2022-04-28 21:14] LABS: GLUCOSE, FASTING 460 MG/DL (74-106)
[2022-04-29] MEDS ORDERED: INSULIN LISPRO (NovoLOG) PER UNIT SC ONE (00:45)
[2022-04-29] MEDS: methylPREDNISolone 125MG 2ML VIAL IV SCH ×4 (01:28→20:33)
[2022-04-29] MEDS: CEPACOL LOZENGE PO PRN (01:28)
[2022-04-29] MEDS: LEVALBUTEROL 1.25MG 0.5ML CONCENTRATE NEB INH SCH ×6 (04:00→23:08)
[2022-04-29 05:43] VITALS: BP 107/51
[2022-04-29 06:07] LABS: HEMATOCRIT 39.8 % (36.0-47.0); HEMOGLOBIN 12.8 g/dl (12.0-15.5); MEAN CORPUSCULAR HGB CONC 32.2 g/dl (32.0-36.5); MEAN CORPUSCULAR VOLUME 93.2 fl (80.0-96.0); PLATELET COUNT, AUTOMATED 252 10^3/uL (150-450); RED BLOOD COUNT 4.27 10^6/uL (4.00-5.40); WHITE BLOOD COUNT 12.3 10^3/uL (4.0-10.0)
[2022-04-29 06:29] LABS: BLOOD UREA NITROGEN 22 MG/DL (9-23); CARBON DIOXIDE LEVEL 29 MMOL/L (20-31); CHLORIDE LEVEL 99 MMOL/L (98-107); CREATININE FOR GFR 0.64 MG/DL (0.55-1.30); GLOMERULAR FILTRATION RATE > 60.0 (>45); GLUCOSE, FASTING 256 MG/DL (74-106); POTASSIUM SERUM 4.4 MMOL/L (3.5-5.1); SODIUM LEVEL 136 MMOL/L (136-145)
[2022-04-29] MEDS: LEVOTHYROXINE 100MCG TABLET (0.1MG) PO SCH (06:41)
[2022-04-29] MEDS: HEPARIN SOD (PORCINE) 5000UNITS/ML 1ML VIAL/SYRINGE SC SCH ×3 (06:42→20:33)
[2022-04-29] MEDS ORDERED: LEVEMIR (INSULIN DETEMIR) 1 UNITS/0.01ML SC SCH (07:00)
[2022-04-29] MEDS ORDERED: INSULIN LISPRO (NovoLOG) PER UNIT SC SCH ×2 (07:30→17:30)
[2022-04-29] MEDS: ATORVASTATIN 20 MG TAB PO SCH (08:15)
[2022-04-29] MEDS: guaiFENesin ER 600 MG TAB PO SCH ×2 (08:15→20:33)
[2022-04-29] MEDS: INSULIN LISPRO (NovoLOG) PER UNIT SC SCH ×4 (08:15→23:19)
[2022-04-29] MEDS ORDERED: LEVEMIR (INSULIN DETEMIR) 1 UNITS/0.01ML SC ONE ×2 (09:00→17:45)
[2022-04-29] MEDS ORDERED: guaiFENesin DM LIQ 10ML UD PO PRN (10:45)
[2022-04-29 14:00] VITALS: BP 121/59
[2022-04-29] MEDS ORDERED: INSULIN LISPRO (NovoLOG) PER UNIT SC STA (17:12)
[2022-04-29] MEDS: cefTRIAXone SOD 1 GM in D5W MINI-BAG PLUS 50 ML IV SCH (17:23)
[2022-04-29] MEDS: AZITHROMYCIN INJ 500 MG, VIAL MATE ADAPTER 1 EACH in NS 250 ML IV SCH (18:09)
[2022-04-29 20:00] VITALS: BP 118/56
[2022-04-29] MEDS ORDERED: HumuLIN R (REGULAR) INSULIN (NovoLIN R) **100U/ML** PER UNIT IV ONE (20:15)
[2022-04-30] MEDS ORDERED: BENZONATATE 100MG CAPSULE PO PRN (01:50)
[2022-04-30] MEDS ORDERED: CHLORASEPTIC SPRAY MT PRN (01:50)
[2022-04-30] MEDS: methylPREDNISolone 125MG 2ML VIAL IV SCH ×2 (02:21→08:23)
[2022-04-30] MEDS: LEVALBUTEROL 1.25MG 0.5ML CONCENTRATE NEB INH SCH ×6 (03:26→23:09)
[2022-04-30] MEDS: HEPARIN SOD (PORCINE) 5000UNITS/ML 1ML VIAL/SYRINGE SC SCH ×3 (05:53→20:09)
[2022-04-30] MEDS: LEVOTHYROXINE 100MCG TABLET (0.1MG) PO SCH (05:53)
[2022-04-30 06:00] VITALS: BP 123/63
[2022-04-30 06:35] LABS: HEMATOCRIT 38.7 % (36.0-47.0); HEMOGLOBIN 12.7 g/dl (12.0-15.5); MEAN CORPUSCULAR HEMOGLOBIN 30.4 pg (27.0-33.0); MEAN CORPUSCULAR HGB CONC 32.8 g/dl (32.0-36.5); MEAN CORPUSCULAR VOLUME 92.6 fl (80.0-96.0); PLATELET COUNT, AUTOMATED 261 10^3/uL (150-450); RED BLOOD COUNT 4.18 10^6/uL (4.00-5.40); WHITE BLOOD COUNT 13.4 10^3/uL (4.0-10.0)
[2022-04-30 06:58] LABS: BLOOD UREA NITROGEN 24 MG/DL (9-23); CALCIUM LEVEL 8.3 MG/DL (8.3-10.6); CARBON DIOXIDE LEVEL 31 MMOL/L (20-31); CHLORIDE LEVEL 101 MMOL/L (98-107); CREATININE FOR GFR 0.62 MG/DL (0.55-1.30); GLOMERULAR FILTRATION RATE > 60.0 (>45); GLUCOSE, FASTING 224 MG/DL (74-106); POTASSIUM SERUM 4.8 MMOL/L (3.5-5.1); SODIUM LEVEL 138 MMOL/L (136-145)
[2022-04-30 07:55] VITALS: O2SAT 94
[2022-04-30] MEDS: ATORVASTATIN 20 MG TAB PO SCH (08:23)
[2022-04-30] MEDS: guaiFENesin ER 600 MG TAB PO SCH ×2 (08:24→20:09)
[2022-04-30] MEDS: INSULIN LISPRO (NovoLOG) PER UNIT SC SCH ×4 (08:24→20:14)
[2022-04-30] MEDS ORDERED: LEVEMIR (INSULIN DETEMIR) 1 UNITS/0.01ML SC SCH (09:00)
[2022-04-30 11:11] VITALS: O2SAT 92
[2022-04-30] MEDS ORDERED: MIRALAX *UNIT DOSE* 17GM PACKET PO SCH (12:10)
[2022-04-30] MEDS ORDERED: MOM 30ML SUSPENSION UDC PO PRN (12:20)
[2022-04-30] MEDS: MOM 30ML SUSPENSION UDC PO SCH ×3 (12:21→20:00)
[2022-04-30] MEDS: SENOKOT S TAB PO SCH ×2 (12:21→20:11)
[2022-04-30 14:00] VITALS: BP 124/84
[2022-04-30] MEDS ORDERED: LEVEMIR (INSULIN DETEMIR) 1 UNITS/0.01ML SC ONE (14:35)
[2022-04-30] MEDS ORDERED: INSULIN LISPRO (NovoLOG) PER UNIT SC STA (14:36)
[2022-04-30] MEDS ORDERED: DAPAGLIFLOZIN PROPANEDIOL 10MG TABLET (FARXIGA) PO ONE (14:50)
[2022-04-30 15:40] VITALS: O2SAT 92
[2022-04-30] MEDS ORDERED: LevoFLOXacin 750 MG TABLET PO SCH (16:00)
[2022-04-30] MEDS ORDERED: AZITHROMYCIN 250MG TABLET PO SCH (18:00)
[2022-04-30 20:00] VITALS: BP 121/60
[2022-04-30] MEDS: methylPREDNISolone 40MG 1ML VIAL IV SCH (20:09)
[2022-04-30] MEDS: MIRALAX *UNIT DOSE* 17GM PACKET PO SCH (20:14)
[2022-05-01] MEDS: CEPACOL LOZENGE PO PRN (01:10)
[2022-05-01] MEDS: LEVALBUTEROL 1.25MG 0.5ML CONCENTRATE NEB INH SCH ×2 (02:58→07:09)
[2022-05-01] MEDS: MOM 30ML SUSPENSION UDC PO SCH ×3 (04:00→08:00)
[2022-05-01 06:00] VITALS: BP 132/65
[2022-05-01] MEDS: LEVOTHYROXINE 100MCG TABLET (0.1MG) PO SCH (06:00)
[2022-05-01] MEDS: HEPARIN SOD (PORCINE) 5000UNITS/ML 1ML VIAL/SYRINGE SC SCH (06:00)
[2022-05-01 06:41] LABS: HEMATOCRIT 40.5 % (36.0-47.0); HEMOGLOBIN 13.4 g/dl (12.0-15.5); MEAN CORPUSCULAR HEMOGLOBIN 30.5 pg (27.0-33.0); MEAN CORPUSCULAR HGB CONC 33.1 g/dl (32.0-36.5); PLATELET COUNT, AUTOMATED 274 10^3/uL (150-450); WHITE BLOOD COUNT 11.6 10^3/uL (4.0-10.0)
[2022-05-01 07:00] LABS: BLOOD UREA NITROGEN 27 MG/DL (9-23); CARBON DIOXIDE LEVEL 32 MMOL/L (20-31); CHLORIDE LEVEL 99 MMOL/L (98-107); GLOMERULAR FILTRATION RATE > 60.0 (>45); GLUCOSE, FASTING 224 MG/DL (74-106); POTASSIUM SERUM 4.4 MMOL/L (3.5-5.1); SODIUM LEVEL 134 MMOL/L (136-145)
[2022-05-01] MEDS: MIRALAX *UNIT DOSE* 17GM PACKET PO SCH (09:00)
[2022-05-01] MEDS ORDERED: DAPAGLIFLOZIN PROPANEDIOL 10MG TABLET (FARXIGA) PO SCH (09:00)
[2022-05-01] MEDS: SENOKOT S TAB PO SCH (09:00)
[2022-05-01] MEDS ORDERED: LEVEMIR (INSULIN DETEMIR) 1 UNITS/0.01ML SC SCH (09:00)
[2022-05-01] MEDS: methylPREDNISolone 40MG 1ML VIAL IV SCH (09:10)
[2022-05-01] MEDS: guaiFENesin ER 600 MG TAB PO SCH (09:11)
[2022-05-01] MEDS: ATORVASTATIN 20 MG TAB PO SCH (09:12)
[2022-05-01] MEDS: INSULIN LISPRO (NovoLOG) PER UNIT SC SCH (09:12)
[2022-05-01] MEDS ORDERED: LEVO1TAB40 PO (09:47)
[2022-05-01] MEDS ORDERED: PRED10TA2 PO (09:47)
[2022-05-01] MEDS ORDERED: BENZ-18 PO (09:47)
[2022-05-01] MEDS ORDERED: predniSONE 20 MG TAB PO ONE (11:00)
[2022-05-02 15:08] LABS: BODY FLUID CULTURE Not indicated. (.); LEGIONELLA ANTIGEN URINE Negative (Negative); ORGANISM ID Not indicated. (.); SPECIMEN SOURCE Urine (.); URINE STREP PNEUMONIAE ANTIGEN Negative (Negative)
== END 2022-05-01 11:16 | disposition home or self-care (01) | DRG 140 ==
LOC: EDBD 14:09 → M ED 14:09 → M ED INP 21:23 → ENRESERV 22:20 → M MSPAV 23:42
PROVIDERS: ADMIT Internal Medicine; ATTEND Internal Medicine
DX: J44.0 Chronic obstructive pulmonary disease with (acute) lower respiratory infection (principal); J15.8 Pneumonia due to other specified bacteria; J96.11 Chronic respiratory failure with hypoxia; Z99.81 Dependence on supplemental oxygen; E11.65 Type 2 diabetes mellitus with hyperglycemia; E78.5 Hyperlipidemia, unspecified; E03.9 Hypothyroidism, unspecified; Z79.899 Other long term (current) drug therapy; Z79.4 Long term (current) use of insulin; Z88.8 Allergy status to other drugs, medicaments and biological substances

== ENCOUNTER → 2022-05-10 | Outpatient (REF) | payer OTHER ==
[~2022-05-10] MED LIST changes: +ACET-683 PO; +ALBU2.5V10 INH; +BASA100I SC; +BENZ-18 PO; +DULA3PEN SQ; +ERGO500029 PO; +LEVO100T5 PO; +LEVO1TAB40 PO; +OYSTTAB3 PO
== END ==
LOC: M SFHCADAM 12:19
PROVIDERS: ATTEND Physician Assistant
DX: R21 Rash and other nonspecific skin eruption (principal)

== ENCOUNTER → 2022-05-17 | Outpatient (CLI) | payer OTHER ==
[2022-05-17 17:17] LABS: BLOOD UREA NITROGEN 12 MG/DL (9-23); CALCIUM LEVEL 8.6 MG/DL (8.3-10.6); CARBON DIOXIDE LEVEL 30 MMOL/L (20-31); CHLORIDE LEVEL 102 MMOL/L (98-107); CREATININE FOR GFR 0.66 MG/DL (0.55-1.30); GLOMERULAR FILTRATION RATE > 60.0 (>45); GLUCOSE, FASTING 120 MG/DL (74-106); POTASSIUM SERUM 4.1 MMOL/L (3.5-5.1); SODIUM LEVEL 139 MMOL/L (136-145)
[2022-05-17 17:19] LABS: FREE T4 1.15 NG/DL (0.89-1.76); THYROID STIMULATING HORMONE 16.937 uIU/ML (0.55-4.78)
== END ==
LOC: M WUC 11:54
PROVIDERS: ATTEND Physician Assistant
DX: E03.9 Hypothyroidism, unspecified (principal); E11.65 Type 2 diabetes mellitus with hyperglycemia; J44.9 Chronic obstructive pulmonary disease, unspecified; R59.0 Localized enlarged lymph nodes; J84.9 Interstitial pulmonary disease, unspecified; I70.0 Atherosclerosis of aorta

== ENCOUNTER → 2022-06-26 | Outpatient (CLI) | payer OTHER | LOC: M RAD 11:31 | PROVIDERS: ATTEND Internal Medicine Pulmonary Disease | DX: R44.9 Unspecified symptoms and signs involving general sensations and perceptions (principal) ==

== ENCOUNTER → 2022-08-08 | Outpatient (REF) | payer OTHER ==
[2022-08-08 13:42] LABS: HEMATOCRIT 48.5 % (36.0-47.0); HEMOGLOBIN 15.8 g/dl (12.0-15.5); MEAN CORPUSCULAR HEMOGLOBIN 30.3 pg (27.0-33.0); MEAN CORPUSCULAR HGB CONC 32.6 g/dl (32.0-36.5); MEAN CORPUSCULAR VOLUME 92.9 fl (80.0-96.0); PLATELET COUNT, AUTOMATED 182 10^3/uL (150-450); RED BLOOD COUNT 5.22 10^6/uL (4.00-5.40); WHITE BLOOD COUNT 7.5 10^3/uL (4.0-10.0)
[2022-08-08 13:50] LABS: APPEARANCE, URINE TURBID (CLEAR); BACTERIA, URINE AUTO 3+ (NEGATIVE); BILIRUBIN, URINE AUTO NEGATIVE (NEGATIVE); BLOOD, URINE BLOOD 2+ (NEGATIVE); COLOR, URINE YELLOW (YELLOW); GLUCOSE, URINE (UA) AUTO NEGATIVE (NEGATIVE); KETONE, URINE AUTO NEGATIVE (NEGATIVE); LEUKOCYTE ESTERASE, URINE AUTO 3+ (NEGATIVE); MUCUS, URINE SMALL (NEGATIVE); NITRITE, URINE AUTO NEGATIVE (NEGATIVE); PROTEIN, URINE AUTO 2+ mg/dL (NEGATIVE); RBC, URINE AUTO 52 /HPF (0-3); SPECIFIC GRAVITY URINE AUTO 1.015 (1.002-1.035); SQUAMOUS EPITHELIAL CELL UR AU 27 /HPF (0-6); UROBILINOGEN, URINE AUTO 0.2 mg/dL (0.0-2.0); WBC, URINE AUTO TNTC /HPF (0-3)
[2022-08-08 14:05] LABS: HEMOGLOBIN A1c 8.1 % (4.0-6.0)
[2022-08-08 14:26] LABS: CREATININE, URINE 110.4 MG/DL
[2022-08-08 14:36] LABS: ALBUMIN 3.4 G/DL (3.2-5.2); ALKALINE PHOSPHATASE 91 U/L (46-116); ALT/SGPT < 9 U/L (7.0-40); AST/SGOT < 8 U/L (<34); BILIRUBIN,TOTAL 0.4 MG/DL (0.3-1.2); BLOOD UREA NITROGEN 10 MG/DL (9-23); CALCIUM LEVEL 9.8 MG/DL (8.3-10.6); CARBON DIOXIDE LEVEL 30 MMOL/L (20-31); CHLORIDE LEVEL 104 MMOL/L (98-107); CREATININE FOR GFR 0.67 MG/DL (0.55-1.30); FREE T4 1.35 NG/DL (0.89-1.76); GLOMERULAR FILTRATION RATE > 60.0 (>45); GLUCOSE, FASTING 212 MG/DL (74-106); POTASSIUM SERUM 4.6 MMOL/L (3.5-5.1); SODIUM LEVEL 139 MMOL/L (136-145); THYROID STIMULATING HORMONE 2.898 uIU/ML (0.55-4.78); TOTAL PROTEIN 6.2 G/DL (5.7-8.2)
[2022-08-08 14:48] LABS: MAU/CREAT RATIO 387.6 MCG/MG (0.0-30.0)
== END ==
LOC: M SFHCADAM 10:59
PROVIDERS: ATTEND Family Medicine
DX: E03.9 Hypothyroidism, unspecified (principal); R30.9 Painful micturition, unspecified; E11.65 Type 2 diabetes mellitus with hyperglycemia

== ENCOUNTER → 2023-01-09 | Outpatient (REF) | payer OTHER ==
[~2023-01-09] MED LIST changes: +CEFD1CAP9 PO; -CEFD300C41 PO
[2023-01-09 14:05] LABS: BASO % 0.3 % (0.0-1.0); HEMATOCRIT 51.1 % (36.0-47.0); HEMOGLOBIN 16.6 g/dl (12.0-15.5); LYMPH # 1.8 10^3/uL (1.5-5.0); LYMPH % 26.4 % (24.0-44.0); MEAN CORPUSCULAR HGB CONC 32.5 g/dl (32.0-36.5); MEAN CORPUSCULAR VOLUME 92.4 fl (80.0-96.0); MONO # 0.5 10^3/uL (0.0-0.8); NEUTROPHILS # 4.5 10^3/uL (1.5-8.5); NEUTROPHILS % 65.9 % (36.0-66.0); PLATELET COUNT, AUTOMATED 170 10^3/uL (150-450); RED BLOOD COUNT 5.53 10^6/uL (4.00-5.40); WHITE BLOOD COUNT 6.8 10^3/uL (4.0-10.0)
[2023-01-09 14:19] LABS: HEMOGLOBIN A1c 9.8 % (4.0-6.0)
[2023-01-09 14:30] LABS: BLOOD UREA NITROGEN 12 MG/DL (9-23); CALCIUM LEVEL 9.4 MG/DL (8.3-10.6); CARBON DIOXIDE LEVEL 32 MMOL/L (20-31); CHLORIDE LEVEL 101 MMOL/L (98-107); CREATININE FOR GFR 0.58 MG/DL (0.55-1.30); GLOMERULAR FILTRATION RATE > 60.0 (>45); GLUCOSE, FASTING 207 MG/DL (74-106); POTASSIUM SERUM 4.8 MMOL/L (3.5-5.1); SODIUM LEVEL 140 MMOL/L (136-145)
[2023-01-09 14:32] LABS: FREE T4 1.47 NG/DL (0.89-1.76); THYROID STIMULATING HORMONE 3.861 uIU/ML (0.55-4.78)
[2023-01-09 14:33] LABS: VITAMIN B12 LEVEL 475 PG/ML (211-911)
[2023-01-09 15:19] LABS: FOLATE > 24.0 NG/ML (>5.4)
== END ==
LOC: M SFHCADAM 11:19
PROVIDERS: ATTEND Physician Assistant
DX: R30.0 Dysuria (principal); G62.9 Polyneuropathy, unspecified; E11.65 Type 2 diabetes mellitus with hyperglycemia; E03.9 Hypothyroidism, unspecified

== ENCOUNTER → 2023-04-15 | Outpatient (REF) | payer OTHER ==
[2023-04-15 19:04] LABS: HEMOGLOBIN A1c 7.2 % (4.0-6.0)
[2023-04-15 19:18] LABS: BLOOD UREA NITROGEN 11 MG/DL (9-23); CALCIUM LEVEL 8.7 MG/DL (8.3-10.6); CARBON DIOXIDE LEVEL 31 MMOL/L (20-31); CHLORIDE LEVEL 105 MMOL/L (98-107); CREATININE FOR GFR 0.62 MG/DL (0.55-1.30); GLOMERULAR FILTRATION RATE > 60.0 (>45); GLUCOSE, FASTING 151 MG/DL (74-106); POTASSIUM SERUM 4.3 MMOL/L (3.5-5.1); SODIUM LEVEL 139 MMOL/L (136-145)
== END ==
LOC: M LABWUC 17:50
PROVIDERS: ATTEND Family Medicine
DX: E11.65 Type 2 diabetes mellitus with hyperglycemia (principal)

== ENCOUNTER → 2023-06-14 | Outpatient (CLI) | payer OTHER | LOC: M WHC 11:16 | PROVIDERS: ATTEND Family Medicine | DX: Z12.31 Encounter for screening mammogram for malignant neoplasm of breast (principal); Z13.820 Encounter for screening for osteoporosis; M85.89 Other specified disorders of bone density and structure, multiple sites ==

== ENCOUNTER → 2023-08-21 | Outpatient (CLI) | payer OTHER | LOC: M RAD 12:22 | PROVIDERS: ATTEND Internal Medicine Pulmonary Disease | DX: Z12.2 Encounter for screening for malignant neoplasm of respiratory organs (principal); Z87.891 Personal history of nicotine dependence ==

== ENCOUNTER → 2023-09-24 | Outpatient (CLI) | payer OTHER ==
[2023-09-24 16:31] LABS: HEMATOCRIT 46.1 % (36.0-47.0); HEMOGLOBIN 15.1 g/dl (12.0-15.5); MEAN CORPUSCULAR HEMOGLOBIN 30.6 pg (27.0-33.0); MEAN CORPUSCULAR HGB CONC 32.8 g/dl (32.0-36.5); MEAN CORPUSCULAR VOLUME 93.3 fl (80.0-96.0); PLATELET COUNT, AUTOMATED 171 10^3/uL (150-450); RED BLOOD COUNT 4.94 10^6/uL (4.00-5.40); WHITE BLOOD COUNT 6.3 10^3/uL (4.0-10.0)
[2023-09-24 16:59] LABS: THYROID STIMULATING HORMONE 1.752 uIU/ML (0.55-4.78); TOTAL 25(OH) VITAMIN D 19.2 NG/ML (20.0-100.0)
[2023-09-24 17:00] LABS: ALBUMIN 3.5 G/DL (3.2-5.2); ALKALINE PHOSPHATASE 89 U/L (46-116); ALT/SGPT < 9 U/L (7.0-40); AST/SGOT < 8 U/L (<34); BILIRUBIN,TOTAL 0.3 MG/DL (0.3-1.2); BLOOD UREA NITROGEN 13 MG/DL (9-23); CALCIUM LEVEL 9.5 MG/DL (8.3-10.6); CARBON DIOXIDE LEVEL 32 MMOL/L (20-31); CHLORIDE LEVEL 107 MMOL/L (98-107); CHOLESTEROL LEVEL 211 MG/DL (<200); CHOLESTEROL RISK RATIO 4.17 (<5); CREATININE FOR GFR 0.72 MG/DL (0.55-1.30); FREE T4 1.82 NG/DL (0.89-1.76); GLOMERULAR FILTRATION RATE > 60.0 (>39); GLUCOSE, FASTING 104 MG/DL (74-106); HDL CHOLESTEROL 50.5 MG/DL (>40); LDL CHOLESTEROL 132.3 MG/DL (<100); NON-HDL-C 160.5 MG/DL; POTASSIUM SERUM 4.2 MMOL/L (3.5-5.1); SODIUM LEVEL 144 MMOL/L (136-145); TOTAL PROTEIN 6.3 G/DL (5.7-8.2); TRIGLYCERIDES LEVEL 141 MG/DL (<150)
[2023-09-24 17:48] LABS: HEMOGLOBIN A1c 7.4 % (4.0-6.0)
== END ==
LOC: M WUC 13:44
PROVIDERS: ATTEND Family Medicine
DX: J44.9 Chronic obstructive pulmonary disease, unspecified (principal); E11.65 Type 2 diabetes mellitus with hyperglycemia; E03.9 Hypothyroidism, unspecified; E78.5 Hyperlipidemia, unspecified; K75.81 Nonalcoholic steatohepatitis (NASH); E55.9 Vitamin D deficiency, unspecified

== ENCOUNTER → 2023-11-11 | Outpatient (REF) | payer OTHER ==
[~2023-11-11] MED LIST changes: +GABA-1172 PO; -GABA-282 PO
== END ==
LOC: EEVIPCON 16:27 → M LAB REF 16:27
PROVIDERS: ATTEND Nurse Practitioner Family
DX: R30.0 Dysuria (principal)

== ENCOUNTER 2023-12-02 13:12 | Inpatient (IN) | payer MEDICARE, OTHER ==
[2023-12-02 14:12] LABS: VENOUS BASE EXCESS 5.7 (-2.0-2.0); VENOUS HCO3 32.5 MMOL/L (23.0-27.0); VENOUS O2 SATURATION 90.9 % (60.0-80.0); VENOUS PARTIAL PRESSURE O2 56.8 mmHg (30.0-50.0); VENOUS PH 7.381 UNITS (7.330-7.430); VENOUS STANDARD HCO3 29.5 MMOL/L; VENOUS TOTAL CO2 34.2 MMOL/L (24.0-28.0)
[2023-12-02 14:20] LABS: BASO % 0.1 % (0.0-1.0); HEMATOCRIT 39.3 % (36.0-47.0); HEMOGLOBIN 13.1 g/dl (12.0-15.5); LYMPH # 0.8 10^3/uL (1.5-5.0); LYMPH % 10.3 % (24.0-44.0); MEAN CORPUSCULAR HEMOGLOBIN 30.5 pg (27.0-33.0); MEAN CORPUSCULAR HGB CONC 33.3 g/dl (32.0-36.5); MEAN CORPUSCULAR VOLUME 91.4 fl (80.0-96.0); MONO # 0.5 10^3/uL (0.0-0.8); MONO % 6.5 % (2.0-8.0); NEUTROPHILS # 6.1 10^3/uL (1.5-8.5); NEUTROPHILS % 82.6 % (36.0-66.0); PLATELET COUNT, AUTOMATED 172 10^3/uL (150-450); WHITE BLOOD COUNT 7.4 10^3/uL (4.0-10.0)
[2023-12-02 14:51] LABS: ALBUMIN 2.9 G/DL (3.2-5.2); ALKALINE PHOSPHATASE 103 U/L (46-116); ALT/SGPT < 9 U/L (7.0-40); AST/SGOT < 8 U/L (<34); BILIRUBIN,DIRECT 0.1 MG/DL (<0.4); BILIRUBIN,TOTAL 0.3 MG/DL (0.3-1.2); BLOOD UREA NITROGEN 10 MG/DL (9-23); CALCIUM LEVEL 9.3 MG/DL (8.3-10.6); CARBON DIOXIDE LEVEL 32 MMOL/L (20-31); CHLORIDE LEVEL 103 MMOL/L (98-107); CREATININE FOR GFR 0.55 MG/DL (0.55-1.30); GLOMERULAR FILTRATION RATE > 60.0 (>39); GLUCOSE, FASTING 235 MG/DL (74-106); INR 1.01; POTASSIUM SERUM 4.3 MMOL/L (3.5-5.1); SODIUM LEVEL 140 MMOL/L (136-145); TOTAL PROTEIN 6.2 G/DL (5.7-8.2)
[2023-12-02 14:52] LABS: CK-MB VALUE MASS < 1.0 NG/ML (<3.6)
[2023-12-02 14:55] LABS: THYROID STIMULATING HORMONE 2.388 uIU/ML (0.55-4.78)
[2023-12-02 14:56] LABS: THYROXINE (T4) 12.6 UG/DL (4.5-10.9)
[2023-12-02] MEDS ORDERED: IPRATROPIUM 0.5MG/ALBUTEROL 2.5MG INH SOL UD 3ML (DUONEB) NEB PRN (15:00)
[2023-12-02 15:07] LABS: CPK CREATINE PHOSPHOKINASE 98 U/L (34-145); MB/CK RELATIVE INDEX 1.02 (< OR =4)
[2023-12-02] MEDS ORDERED: GLUCOSE 4 GM CHEW PO PRN ×2 (15:10→18:15)
[2023-12-02] MEDS ORDERED: DEXTROSE 50% 50ML SYRINGE IV PRN ×2 (15:10→18:15)
[2023-12-02] MEDS ORDERED: GLUCAGON INJ 1MG VIAL SC PRN ×2 (15:10→18:15)
[2023-12-02] MEDS ORDERED: LEVALBUTEROL 1.25MG 0.5ML CONCENTRATE NEB INH PRN (16:20)
[2023-12-02] MEDS ORDERED: IPRATROPIUM 0.02% SOLN 0.5MG 2.5ML NEB INH PRN (16:20)
[2023-12-02] MEDS: FUROSEMIDE 40MG/4ML VIAL IV ONE (16:33)
[2023-12-02] MEDS ORDERED: IBUP200C25 PO (16:40)
[2023-12-02] MEDS ORDERED: HOME MED LIST COMPLETE! XX SCH (16:40)
[2023-12-02] MEDS: INSULIN LISPRO (NovoLOG) PER UNIT SC SCH ×3 (17:30→23:23)
[2023-12-02] MEDS ORDERED: NYSTATIN 100,000 UNITS/GM TOPICAL PWD 15GM TOP PRN (18:15)
[2023-12-02] MEDS: methylPREDNISolone 40MG 1ML VIAL IV SCH (18:28)
[2023-12-02 18:37] LABS: CK-MB VALUE MASS < 1.0 NG/ML (<3.6)
[2023-12-02 18:39] LABS: CPK CREATINE PHOSPHOKINASE 120 U/L (34-145); MB/CK RELATIVE INDEX 0.83 (< OR =4)
[2023-12-02] MEDS: IPRATROPIUM 0.02% SOLN 0.5MG 2.5ML NEB INH SCH (19:20)
[2023-12-02] MEDS: FORMOTEROL FUMARATE 20 MCG/2 ML INHALATION SOLUTION (PERFOROMIST) INH SCH (19:20)
[2023-12-02] MEDS: LEVALBUTEROL 1.25MG 0.5ML CONCENTRATE NEB INH SCH (19:20)
[2023-12-02] MEDS: GLYCOPYRROLATE INJ 0.2 MG/ML 2 ML VIAL NEB SCH (19:20)
[2023-12-02] MEDS ORDERED: INSULIN LISPRO (NovoLOG) PER UNIT SC SCH (21:00)
[2023-12-02 21:55] VITALS: BP 137/59; TEMP 96.8; O2SAT 96
[2023-12-02] MEDS: LEVEMIR (INSULIN DETEMIR) 1 UNITS/0.01ML SC SCH (23:23)
[2023-12-02] MEDS: DOXYCYCLINE HYCLATE 100MG TABLET PO SCH (23:23)
[2023-12-02] MEDS: HEPARIN SOD (PORCINE) 5000UNITS/ML 1ML VIAL/SYRINGE SQ SCH (23:24)
[2023-12-03] VITALS (10 sets, daily range): BP systolic 108–139; BP diastolic 51–67; TEMP 96.3–97.5; O2SAT 86–97
[2023-12-03 01:13] LABS: CK-MB VALUE MASS < 1.0 NG/ML (<3.6)
[2023-12-03 01:14] LABS: CPK CREATINE PHOSPHOKINASE 147 U/L (34-145); MB/CK RELATIVE INDEX 0.68 (< OR =4)
[2023-12-03 06:06] LABS: HEMATOCRIT 40.2 % (36.0-47.0); HEMOGLOBIN 13.3 g/dl (12.0-15.5); MEAN CORPUSCULAR HGB CONC 33.1 g/dl (32.0-36.5); MEAN CORPUSCULAR VOLUME 90.7 fl (80.0-96.0); PLATELET COUNT, AUTOMATED 227 10^3/uL (150-450); RED BLOOD COUNT 4.43 10^6/uL (4.00-5.40); WHITE BLOOD COUNT 7.2 10^3/uL (4.0-10.0)
[2023-12-03] MEDS: LEVOTHYROXINE 112MCG TABLET (0.112MG) PO SCH (06:35)
[2023-12-03 06:39] LABS: BLOOD UREA NITROGEN 20 MG/DL (9-23); CALCIUM LEVEL 9.4 MG/DL (8.3-10.6); CARBON DIOXIDE LEVEL 35 MMOL/L (20-31); CHLORIDE LEVEL 100 MMOL/L (98-107); CREATININE FOR GFR 0.65 MG/DL (0.55-1.30); GLOMERULAR FILTRATION RATE > 60.0 (>39); GLUCOSE, FASTING 303 MG/DL (74-106); MAGNESIUM LEVEL 1.8 MG/DL (1.8-2.4); POTASSIUM SERUM 4.4 MMOL/L (3.5-5.1); SODIUM LEVEL 136 MMOL/L (136-145)
[2023-12-03] MEDS: SYMBICORT 160/4.5MCG INHALER 6GM INH SCH (08:00)
[2023-12-03] MEDS: ATORVASTATIN 20 MG TAB PO SCH (08:46)
[2023-12-03] MEDS: metFORMIN (GLUCOPHAGE) 1000MG TABLET PO SCH (08:46)
[2023-12-03] MEDS: SITagliptin 50 MG TAB (JANUVIA) PO SCH (08:46)
[2023-12-03] MEDS: cefTRIAXone SOD 1 GM in DEXTROSE 5% (D5W) ADV/MINI-BAG 50 ML IV SCH (08:47)
[2023-12-03 09:21] LABS: PROCALCITONIN <0.04 ng/ml
[2023-12-03] MEDS ORDERED: ALBUTEROL SULFATE 2.5MG/0.5ML INH NEB SOLN NEB PRN (10:35)
[2023-12-03] MEDS: predniSONE 20 MG TAB PO SCH (12:39)
[2023-12-03] MEDS: guaiFENesin 200 MG TAB PO SCH (20:34)
[2023-12-04 04:00] VITALS: BP 122/66; TEMP 97.5; O2SAT 94
[2023-12-04 06:07] LABS: HEMATOCRIT 39.9 % (36.0-47.0); HEMOGLOBIN 13.1 g/dl (12.0-15.5); MEAN CORPUSCULAR HEMOGLOBIN 29.6 pg (27.0-33.0); MEAN CORPUSCULAR HGB CONC 32.8 g/dl (32.0-36.5); MEAN CORPUSCULAR VOLUME 90.3 fl (80.0-96.0); PLATELET COUNT, AUTOMATED 261 10^3/uL (150-450); RED BLOOD COUNT 4.42 10^6/uL (4.00-5.40); WHITE BLOOD COUNT 12.4 10^3/uL (4.0-10.0)
[2023-12-04 06:29] LABS: BLOOD UREA NITROGEN 38 MG/DL (9-23); CALCIUM LEVEL 9.8 MG/DL (8.3-10.6); CARBON DIOXIDE LEVEL 35 MMOL/L (20-31); CHLORIDE LEVEL 103 MMOL/L (98-107); GLOMERULAR FILTRATION RATE > 60.0 (>39); GLUCOSE, FASTING 173 MG/DL (74-106); MAGNESIUM LEVEL 1.7 MG/DL (1.8-2.4); POTASSIUM SERUM 4.3 MMOL/L (3.5-5.1); SODIUM LEVEL 141 MMOL/L (136-145)
[2023-12-04 08:00] VITALS: BP 120/65; TEMP 96.6; O2SAT 100
[2023-12-04] MEDS ORDERED: predniSONE 20 MG TAB PO SCH (09:20)
[2023-12-04] MEDS: MAG SULF 1GM/100ML (MAG RUN) 1 GM in IV 1 EA IV SCH (10:57)
[2023-12-04 12:00] VITALS: BP 118/65; TEMP 97; O2SAT 98
[2023-12-04 16:00] VITALS: BP 116/61; TEMP 97.3; O2SAT 89
[2023-12-04 19:50] VITALS: BP 114/55; TEMP 97.7; O2SAT 90
[2023-12-04] MEDS: predniSONE 20 MG TAB PO SCH (20:33)
[2023-12-05] VITALS: BP 110/55; TEMP 97.2; O2SAT 94
[2023-12-05 04:50] VITALS: BP 115/53; TEMP 97; O2SAT 97
[2023-12-05 05:44] LABS: HEMATOCRIT 38.6 % (36.0-47.0); HEMOGLOBIN 12.6 g/dl (12.0-15.5); MEAN CORPUSCULAR HEMOGLOBIN 29.7 pg (27.0-33.0); MEAN CORPUSCULAR HGB CONC 32.6 g/dl (32.0-36.5); PLATELET COUNT, AUTOMATED 232 10^3/uL (150-450); RED BLOOD COUNT 4.24 10^6/uL (4.00-5.40); WHITE BLOOD COUNT 10.2 10^3/uL (4.0-10.0)
[2023-12-05 06:08] LABS: BLOOD UREA NITROGEN 34 MG/DL (9-23); CALCIUM LEVEL 9.5 MG/DL (8.3-10.6); CARBON DIOXIDE LEVEL 33 MMOL/L (20-31); CHLORIDE LEVEL 105 MMOL/L (98-107); GLOMERULAR FILTRATION RATE > 60.0 (>39); GLUCOSE, FASTING 270 MG/DL (74-106); MAGNESIUM LEVEL 1.8 MG/DL (1.8-2.4); POTASSIUM SERUM 4.9 MMOL/L (3.5-5.1); SODIUM LEVEL 139 MMOL/L (136-145)
[2023-12-05 08:00] VITALS: BP 111/53; TEMP 97.9; O2SAT 95
[2023-12-05] MEDS: CEFDINIR 300 MG CAP (OMNICEF) PO SCH (08:13)
[2023-12-05] MEDS ORDERED: PRED10TA2 PO (09:01)
[2023-12-05] MEDS ORDERED: ALBU2.5V10 INH (09:01)
[2023-12-05] MEDS ORDERED: BACI1CAP PO (09:01)
[2023-12-05] MEDS ORDERED: CEFD300CAP PO (09:01)
[2023-12-05] MEDS ORDERED: PRED20TA PO (09:01)
[2023-12-05] MEDS ORDERED: ALBU8.5H INH (09:01)
[2023-12-05] MEDS ORDERED: DOXY100T PO (09:01)
[2023-12-05 12:00] VITALS: BP 112/53; TEMP 98.1; O2SAT 94
[2023-12-05] MEDS: FLUBLOK(EGGFREE) TRIVAL(24-25) VACCINE PF 0.5ML SYRINGE 18YRS & OLDER IM.IMMUN ONE (13:41)
[2023-12-05] MEDS: PREVNAR-20 VACCINE 0.5ML SYRINGE IM.IMMUN ONE (13:42)
[2023-12-06] MEDS ORDERED: NOVOINJ3 SC (17:35)
== END 2023-12-05 13:55 | disposition home health service (06) | DRG 140 ==
LOC: EDBD 13:12 → M ED 13:21 → M ED INP 15:07 → M PCU 21:41 → M MSPAV 12-03 22:20
PROVIDERS: ADMIT General Practice; ATTEND General Practice
PROC: B246ZZZ Ultrasonography of Right and Left Heart (ICD-10-PCS; principal; 2023-12-03)
DX: J44.0 Chronic obstructive pulmonary disease with (acute) lower respiratory infection (principal); J96.21 Acute and chronic respiratory failure with hypoxia; I11.0 Hypertensive heart disease with heart failure; J18.9 Pneumonia, unspecified organism; I50.9 Heart failure, unspecified; Z99.81 Dependence on supplemental oxygen; E11.65 Type 2 diabetes mellitus with hyperglycemia; R26.89 Other abnormalities of gait and mobility; E03.9 Hypothyroidism, unspecified; E78.5 Hyperlipidemia, unspecified; Z87.891 Personal history of nicotine dependence; Z79.890 Hormone replacement therapy; Z79.84 Long term (current) use of oral hypoglycemic drugs; Z79.52 Long term (current) use of systemic steroids; Z79.899 Other long term (current) drug therapy; Z88.8 Allergy status to other drugs, medicaments and biological substances; J44.1 Chronic obstructive pulmonary disease with (acute) exacerbation

== ENCOUNTER → 2023-12-30 | Outpatient (REF) | payer OTHER ==
[~2023-12-30] MED LIST changes: +ALBU8.5H INH; +BACI1CAP PO; +CEFD300CAP PO; +DOXY100T PO; +IBUP200C25 PO; +NOVOINJ3 SC; +NYST1POW3 TOP; -NYST1POW9 TOP
== END ==
LOC: M LAB REF 16:41
PROVIDERS: ATTEND Student in an Organized Health Care Education/Training Program
DX: R30.0 Dysuria (principal)

== ENCOUNTER → 2024-01-22 | Outpatient (CLI) | payer OTHER ==
[2024-01-22 17:31] LABS: BLOOD UREA NITROGEN 12 MG/DL (9-23); CALCIUM LEVEL 9.8 MG/DL (8.3-10.6); CARBON DIOXIDE LEVEL 32 MMOL/L (20-31); CHLORIDE LEVEL 104 MMOL/L (98-107); CREATININE FOR GFR 0.63 MG/DL (0.55-1.30); GLOMERULAR FILTRATION RATE > 60.0 (>39); GLUCOSE, FASTING 166 MG/DL (74-106); POTASSIUM SERUM 4.4 MMOL/L (3.5-5.1); SODIUM LEVEL 143 MMOL/L (136-145)
[2024-01-22 18:14] LABS: HEMOGLOBIN A1c 8.1 % (4.0-6.0)
== END ==
LOC: M WUC 13:34
PROVIDERS: ATTEND Family Medicine
DX: E11.65 Type 2 diabetes mellitus with hyperglycemia (principal)

== ENCOUNTER 2024-02-13 14:25 | Inpatient (IN) | payer MEDICARE, OTHER ==
[~2024-02-13] VITALS: Ht 162.6 cm; Wt 74.7 kg
[2024-02-13 15:25] LABS: BASO % 0.1 % (0.0-1.0); HEMATOCRIT 42.4 % (36.0-47.0); HEMOGLOBIN 14.2 g/dl (12.0-15.5); LYMPH # 0.9 10^3/uL (1.5-5.0); LYMPH % 5.6 % (24.0-44.0); MEAN CORPUSCULAR HEMOGLOBIN 30.3 pg (27.0-33.0); MEAN CORPUSCULAR HGB CONC 33.5 g/dl (32.0-36.5); MEAN CORPUSCULAR VOLUME 90.4 fl (80.0-96.0); MONO # 0.9 10^3/uL (0.0-0.8); MONO % 5.4 % (2.0-8.0); NEUTROPHILS # 14.5 10^3/uL (1.5-8.5); NEUTROPHILS % 88.4 % (36.0-66.0); PLATELET COUNT, AUTOMATED 159 10^3/uL (150-450); RED BLOOD COUNT 4.69 10^6/uL (4.00-5.40); WHITE BLOOD COUNT 16.5 10^3/uL (4.0-10.0)
[2024-02-13 15:56] LABS: ALBUMIN 3.2 G/DL (3.2-5.2); ALKALINE PHOSPHATASE 84 U/L (35-104); ALT/SGPT 10 U/L (7.0-40); AST/SGOT 24 U/L (<34); BILIRUBIN,DIRECT 0.2 MG/DL (<0.4); BILIRUBIN,TOTAL 0.6 MG/DL (0.3-1.2); BLOOD UREA NITROGEN 11 MG/DL (9-23); CALCIUM LEVEL 9.3 MG/DL (8.3-10.6); CARBON DIOXIDE LEVEL 27 MMOL/L (20-31); CHLORIDE LEVEL 100 MMOL/L (98-107); CK-MB VALUE MASS < 1.0 NG/ML (<3.6); CPK CREATINE PHOSPHOKINASE 47 U/L (34-145); CREATININE FOR GFR 0.65 MG/DL (0.55-1.30); GLOMERULAR FILTRATION RATE > 60.0 (>39); GLUCOSE, FASTING 296 MG/DL (74-106); MB/CK RELATIVE INDEX 2.12 (< OR =4); POTASSIUM SERUM 4.8 MMOL/L (3.5-5.1); SODIUM LEVEL 136 MMOL/L (136-145); TOTAL PROTEIN 6.6 G/DL (5.7-8.2)
[2024-02-13] MEDS: ALBUTEROL SULFATE 2.5MG/0.5ML INH NEB SOLN INH ONE (16:44)
[2024-02-13] MEDS: IPRATROPIUM 0.5MG/ALBUTEROL 2.5MG INH SOL UD 3ML (DUONEB) NEB ONE (16:44)
[2024-02-13 16:53] LABS: ABG BASE EXCESS 2.3 (-2.0-2.0); ABG HCO3 27.4 MMOL/L (22.0-26.0); ABG O2 SATURATION 98.5 % (95.0-99.0); ABG PARTIAL PRESSURE CO2 44.4 mmHg (35.0-45.0); ABG PARTIAL PRESSURE O2 128.4 mmHg (75.0-100.0); ABG STANDARD HCO3 26.5 MMOL/L. (22.0-26.0); ABG TOTAL CO2 28.8 MMOL/L (23.0-31.0); ABG pH (ARTERIAL) 7.409 UNITS (7.350-7.450)
[2024-02-13] MEDS: predniSONE 20 MG TAB PO ONE (16:59)
[2024-02-13] MEDS ORDERED: GLUCOSE 4 GM CHEW PO PRN (18:10)
[2024-02-13] MEDS ORDERED: DEXTROSE 50% 50ML SYRINGE IV PRN (18:10)
[2024-02-13] MEDS ORDERED: IPRATROPIUM 0.5MG/ALBUTEROL 2.5MG INH SOL UD 3ML (DUONEB) NEB PRN (18:10)
[2024-02-13] MEDS ORDERED: GLUCAGON INJ 1MG VIAL SC PRN (18:10)
[2024-02-13] MEDS: INSULIN LISPRO (NovoLOG) PER UNIT SC SCH ×2 (19:07→21:43)
[2024-02-13] MEDS ORDERED: METF-877 PO (19:09)
[2024-02-13] MEDS ORDERED: HOME MED LIST COMPLETE! XX SCH (19:15)
[2024-02-13] MEDS: cefTRIAXone SOD 2 GM in DEXTROSE 5% (D5W) ADV/MINI-BAG 50 ML IV SCH (20:00)
[2024-02-13] MEDS: IPRATROPIUM 0.5MG/ALBUTEROL 2.5MG INH SOL UD 3ML (DUONEB) NEB SCH (20:00)
[2024-02-13 22:30] VITALS: BP 124/60; TEMP 97.9; O2SAT 92
[2024-02-13 23:56] VITALS: BP 111/54; TEMP 98.5; O2SAT 97
[2024-02-14 03:52] VITALS: BP 124/66; TEMP 98.5; O2SAT 92
[2024-02-14] MEDS: LEVOTHYROXINE 112MCG TABLET (0.112MG) PO SCH (06:01)
[2024-02-14 07:57] VITALS: BP 120/58; TEMP 96.7; O2SAT 100
[2024-02-14] MEDS: ENOXAPARIN 40MG/0.4ML SYRINGE (J1650 PER 10MG) SC SCH (08:07)
[2024-02-14] MEDS: ATORVASTATIN 20 MG TAB PO SCH (08:08)
[2024-02-14] MEDS: predniSONE 20 MG TAB PO SCH (08:08)
[2024-02-14 08:22] LABS: HEMATOCRIT 42.9 % (36.0-47.0); HEMOGLOBIN 13.8 g/dl (12.0-15.5); MEAN CORPUSCULAR HEMOGLOBIN 29.1 pg (27.0-33.0); MEAN CORPUSCULAR HGB CONC 32.2 g/dl (32.0-36.5); MEAN CORPUSCULAR VOLUME 90.3 fl (80.0-96.0); PLATELET COUNT, AUTOMATED 178 10^3/uL (150-450); RED BLOOD COUNT 4.75 10^6/uL (4.00-5.40); WHITE BLOOD COUNT 12.5 10^3/uL (4.0-10.0)
[2024-02-14 08:46] LABS: BLOOD UREA NITROGEN 16 MG/DL (9-23); CALCIUM LEVEL 9.9 MG/DL (8.3-10.6); CARBON DIOXIDE LEVEL 31 MMOL/L (20-31); CHLORIDE LEVEL 103 MMOL/L (98-107); CREATININE FOR GFR 0.66 MG/DL (0.55-1.30); GLOMERULAR FILTRATION RATE > 60.0 (>39); GLUCOSE, FASTING 294 MG/DL (74-106); POTASSIUM SERUM 4.4 MMOL/L (3.5-5.1); SODIUM LEVEL 140 MMOL/L (136-145)
[2024-02-14] MEDS ORDERED: ALEN70TA82 PO (09:21)
[2024-02-14] MEDS ORDERED: ROZE8TAB16 PO (09:21)
[2024-02-14] MEDS ORDERED: COMBAER6 INH (09:21)
[2024-02-14] MEDS ORDERED: ERGO500029 PO (09:21)
[2024-02-14] MEDS ORDERED: NOVOINJ3 SC (09:23)
[2024-02-14] MEDS ORDERED: GABAPENTIN 300 MG CAP PO PRN (11:50)
[2024-02-14 12:00] VITALS: BP 109/58; TEMP 97; O2SAT 94
[2024-02-14 16:00] VITALS: BP 101/51; TEMP 97.5; O2SAT 84
[2024-02-14 19:21] VITALS: BP 125/61; TEMP 97.8; O2SAT 92
[2024-02-14] MEDS: LEVEMIR (INSULIN DETEMIR) 1 UNITS/0.01ML SC SCH (21:23)
[2024-02-14] MEDS: metFORMIN (GLUCOPHAGE) 1000MG TABLET PO SCH (21:23)
[2024-02-14 23:34] VITALS: BP 115/59; TEMP 97.9; O2SAT 97
[2024-02-15 03:59] VITALS: BP 133/62; TEMP 98; O2SAT 97
[2024-02-15 07:48] LABS: HEMATOCRIT 40.2 % (36.0-47.0); HEMOGLOBIN 13.1 g/dl (12.0-15.5); MEAN CORPUSCULAR HEMOGLOBIN 29.7 pg (27.0-33.0); MEAN CORPUSCULAR HGB CONC 32.6 g/dl (32.0-36.5); MEAN CORPUSCULAR VOLUME 91.2 fl (80.0-96.0); PLATELET COUNT, AUTOMATED 209 10^3/uL (150-450); RED BLOOD COUNT 4.41 10^6/uL (4.00-5.40); WHITE BLOOD COUNT 8.6 10^3/uL (4.0-10.0)
[2024-02-15 08:00] VITALS: BP 109/58; TEMP 98.2; O2SAT 96
[2024-02-15 08:08] LABS: BLOOD UREA NITROGEN 25 MG/DL (9-23); CALCIUM LEVEL 9.3 MG/DL (8.3-10.6); CARBON DIOXIDE LEVEL 31 MMOL/L (20-31); CHLORIDE LEVEL 102 MMOL/L (98-107); GLOMERULAR FILTRATION RATE > 60.0 (>39); GLUCOSE, FASTING 346 MG/DL (74-106); POTASSIUM SERUM 4.7 MMOL/L (3.5-5.1); SODIUM LEVEL 139 MMOL/L (136-145)
[2024-02-15 12:00] VITALS: BP 106/53; TEMP 98.2; O2SAT 96
[2024-02-15] MEDS: guaiFENesin ER TABLET 600 MG TAB PO SCH (12:50)
[2024-02-15 15:42] LABS: KETONE, URINE AUTO RFX TRACE mg/dL (NEGATIVE); NITRITE, URINE AUTO RFX NEGATIVE (NEGATIVE); RBC, URINE AUTO RFX 1 /HPF (0-3); SQUAM EPITHELIAL CELL UR AURFX 2 /HPF (0-6)
[2024-02-15 16:00] VITALS: BP 115/58; TEMP 97.9; O2SAT 98
[2024-02-15 16:17] LABS: LEUKOCYTE ESTERASE UR AUTO RFX TRACE (NEGATIVE)
[2024-02-15 19:17] VITALS: BP 127/57; TEMP 97.4; O2SAT 93
[2024-02-15 23:48] VITALS: BP 124/59; TEMP 97.1; O2SAT 97
[2024-02-16] VITALS (7 sets, daily range): BP systolic 120–128; BP diastolic 57–60; TEMP 96.8–98.5; O2SAT 91–98
[2024-02-16 08:33] LABS: HEMATOCRIT 39.3 % (36.0-47.0); HEMOGLOBIN 12.8 g/dl (12.0-15.5); MEAN CORPUSCULAR HEMOGLOBIN 29.7 pg (27.0-33.0); MEAN CORPUSCULAR HGB CONC 32.6 g/dl (32.0-36.5); MEAN CORPUSCULAR VOLUME 91.2 fl (80.0-96.0); PLATELET COUNT, AUTOMATED 209 10^3/uL (150-450); RED BLOOD COUNT 4.31 10^6/uL (4.00-5.40); WHITE BLOOD COUNT 7.1 10^3/uL (4.0-10.0)
[2024-02-16 08:58] LABS: BLOOD UREA NITROGEN 27 MG/DL (9-23); CALCIUM LEVEL 9.1 MG/DL (8.3-10.6); CARBON DIOXIDE LEVEL 29 MMOL/L (20-31); CHLORIDE LEVEL 103 MMOL/L (98-107); CREATININE FOR GFR 0.64 MG/DL (0.55-1.30); GLOMERULAR FILTRATION RATE > 60.0 (>39); GLUCOSE, FASTING 324 MG/DL (74-106); POTASSIUM SERUM 4.6 MMOL/L (3.5-5.1); SODIUM LEVEL 139 MMOL/L (136-145)
[2024-02-16] MEDS: RAMELTEON 8 MG TAB (ROZEREM) PO PRN (21:57)
[2024-02-16] MEDS: LEVEMIR (INSULIN DETEMIR) 1 UNITS/0.01ML SC SCH (21:58)
[2024-02-17 03:59] VITALS: BP 137/63; TEMP 97.8; O2SAT 90
[2024-02-17 07:23] LABS: HEMATOCRIT 40.8 % (36.0-47.0); HEMOGLOBIN 13.2 g/dl (12.0-15.5); MEAN CORPUSCULAR HEMOGLOBIN 29.5 pg (27.0-33.0); MEAN CORPUSCULAR HGB CONC 32.4 g/dl (32.0-36.5); MEAN CORPUSCULAR VOLUME 91.3 fl (80.0-96.0); PLATELET COUNT, AUTOMATED 223 10^3/uL (150-450); RED BLOOD COUNT 4.47 10^6/uL (4.00-5.40); WHITE BLOOD COUNT 6.5 10^3/uL (4.0-10.0)
[2024-02-17 07:30] VITALS: O2SAT 96
[2024-02-17 07:53] LABS: BLOOD UREA NITROGEN 21 MG/DL (9-23); CALCIUM LEVEL 9.5 MG/DL (8.3-10.6); CARBON DIOXIDE LEVEL 30 MMOL/L (20-31); CHLORIDE LEVEL 103 MMOL/L (98-107); CREATININE FOR GFR 0.71 MG/DL (0.55-1.30); GLOMERULAR FILTRATION RATE > 60.0 (>39); GLUCOSE, FASTING 276 MG/DL (74-106); POTASSIUM SERUM 4.7 MMOL/L (3.5-5.1); SODIUM LEVEL 139 MMOL/L (136-145)
[2024-02-17 08:00] VITALS: BP 131/65; TEMP 97.6; O2SAT 93
[2024-02-17] MEDS ORDERED: AMOX875T2 PO (08:11)
[2024-02-17] MEDS ORDERED: PRED20TA PO (08:11)
== END 2024-02-17 11:30 | disposition home or self-care (01) | DRG 918 ==
LOC: EDBD 14:25 → M ED 14:25 → M ED INP 20:19 → M MS4PR 22:30
PROVIDERS: ADMIT Family Medicine; ATTEND Family Medicine
DX: T59.811A Toxic effect of smoke, accidental (unintentional), initial encounter (principal); J44.1 Chronic obstructive pulmonary disease with (acute) exacerbation; E11.40 Type 2 diabetes mellitus with diabetic neuropathy, unspecified; E03.9 Hypothyroidism, unspecified; E78.5 Hyperlipidemia, unspecified; E55.9 Vitamin D deficiency, unspecified; M81.0 Age-related osteoporosis without current pathological fracture; K76.0 Fatty (change of) liver, not elsewhere classified; J70.5 Respiratory conditions due to smoke inhalation; Z87.891 Personal history of nicotine dependence; Z79.899 Other long term (current) drug therapy; Z99.81 Dependence on supplemental oxygen

== ENCOUNTER → 2024-03-09 | Outpatient (CLI) | payer MEDICAID, OTHER ==
[~2024-03-09] MED LIST changes: +ALEN70TA82 PO; +AMOX875T2 PO; +METF-877 PO; +ROZE8TAB16 PO
== END ==
LOC: M PLAIMG 09:22
PROVIDERS: ATTEND Physician Assistant Medical
DX: R59.0 Localized enlarged lymph nodes (principal); R91.8 Other nonspecific abnormal finding of lung field; J43.2 Centrilobular emphysema; I70.0 Atherosclerosis of aorta

== ENCOUNTER → 2024-03-12 | Outpatient (REF) | payer OTHER ==
[2024-03-12 14:31] LABS: APPEARANCE, URINE MANUAL CLOUDY (CLEAR)
[2024-03-12 14:32] LABS: BILIRUBIN, URINE MANUAL NEGATIVE (NEGATIVE); BLOOD URINE MANUAL TRACE (NEGATIVE); COLOR, URINE MANUAL YELLOW (YELLOW); GLUCOSE, URINE (UA) MANUAL 1+(100 MG/DL) mg/dL (NEGATIVE); KETONE, URINE MANUAL NEGATIVE (NEGATIVE); LEUKOCYTE ESTERASE, URINE MAN POSITIVE (NEGATIVE); NITRITE, URINE MANUAL POSITIVE (NEGATIVE); PROTEIN, URINE MANUAL 1+ mg/dL (NEGATIVE); UROBILINOGEN, URINE MANUAL NORMAL (NORMAL)
[2024-03-12 14:43] LABS: BACTERIA, URINE LARGE AMOUNT; HYALINE CAST, URINE NONE SEEN /lpf (0-1); SQUAMOUS EPITHELIAL CELL URINE SMALL AMOUNT /hpf (SMALL AMT); WBC, URINE TNTC /hpf (0-3)
[2024-03-12 14:44] LABS: MUCUS, URINE SMALL AMOUNT (NEGATIVE)
== END ==
LOC: M SFHCADAM 10:08
PROVIDERS: ATTEND Family Medicine
DX: N39.0 Urinary tract infection, site not specified (principal)

== ENCOUNTER → 2024-04-07 | Outpatient (REF) | payer OTHER ==
[2024-04-08 11:18] LABS: APPEARANCE, URINE CLOUDY (CLEAR); BACTERIA, URINE AUTO 3+ (NEGATIVE); BILIRUBIN, URINE AUTO NEGATIVE (NEGATIVE); BLOOD, URINE BLOOD 2+ (NEGATIVE); COLOR, URINE AMBER (YELLOW); GLUCOSE, URINE (UA) AUTO 3+ mg/dL (NEGATIVE); KETONE, URINE AUTO NEGATIVE (NEGATIVE); LEUKOCYTE ESTERASE, URINE AUTO 3+ (NEGATIVE); NITRITE, URINE AUTO NEGATIVE (NEGATIVE); PROTEIN, URINE AUTO 2+ mg/dL (NEGATIVE); RBC, URINE AUTO 49 /HPF (0-3); SPECIFIC GRAVITY URINE AUTO 1.016 (1.002-1.035); SQUAMOUS EPITHELIAL CELL UR AU 6 /HPF (0-6); UROBILINOGEN, URINE AUTO 0.2 mg/dL (0.0-2.0); WBC, URINE AUTO TNTC /HPF (0-3)
== END ==
LOC: M SMT 10:04
PROVIDERS: ATTEND Nurse Practitioner Family
DX: N39.0 Urinary tract infection, site not specified (principal)

== ENCOUNTER → 2024-04-28 | Outpatient (CLI) | payer OTHER | LOC: M RAD 14:01 | PROVIDERS: ATTEND Nurse Practitioner Family | DX: N39.0 Urinary tract infection, site not specified (principal) ==

== ENCOUNTER → 2024-05-12 | Outpatient (CLI) | payer OTHER ==
[2024-05-12 10:00] LABS: BLOOD UREA NITROGEN 11 MG/DL (9-23); CALCIUM LEVEL 9.1 MG/DL (8.3-10.6); CARBON DIOXIDE LEVEL 31 MMOL/L (20-31); CHLORIDE LEVEL 106 MMOL/L (98-107); CREATININE FOR GFR 0.65 MG/DL (0.55-1.30); GLOMERULAR FILTRATION RATE > 60.0 (>39); GLUCOSE, FASTING 92 MG/DL (74-106); POTASSIUM SERUM 3.9 MMOL/L (3.5-5.1); SODIUM LEVEL 144 MMOL/L (136-145)
== END ==
LOC: M LAB 08:37
PROVIDERS: ATTEND Nurse Practitioner Family
DX: N39.0 Urinary tract infection, site not specified (principal)

== ENCOUNTER 2024-05-26 07:32 | Emergency (ER) | payer OTHER ==
[2024-05-26 07:58] LABS: VENOUS HCO3 30.3 MMOL/L (23.0-27.0); VENOUS O2 SATURATION 71.1 % (60.0-80.0); VENOUS PARTIAL PRESSURE CO2 63.6 mmHg (38.0-50.0); VENOUS PARTIAL PRESSURE O2 38.4 mmHg (30.0-50.0); VENOUS PH 7.296 UNITS (7.330-7.430); VENOUS STANDARD HCO3 25.6 MMOL/L; VENOUS TOTAL CO2 32.3 MMOL/L (24.0-28.0)
[2024-05-26 08:02] LABS: BASO % 0.2 % (0.0-1.0); EOS % 0.1 % (0.0-3.0); HEMATOCRIT 42.4 % (36.0-47.0); HEMOGLOBIN 13.6 g/dl (12.0-15.5); LYMPH # 1.6 10^3/uL (1.5-5.0); LYMPH % 18.9 % (24.0-44.0); MEAN CORPUSCULAR HEMOGLOBIN 29.1 pg (27.0-33.0); MEAN CORPUSCULAR HGB CONC 32.1 g/dl (32.0-36.5); MEAN CORPUSCULAR VOLUME 90.6 fl (80.0-96.0); MONO # 0.7 10^3/uL (0.0-0.8); MONO % 7.9 % (2.0-8.0); NEUTROPHILS # 6.1 10^3/uL (1.5-8.5); NEUTROPHILS % 72.7 % (36.0-66.0); PLATELET COUNT, AUTOMATED 222 10^3/uL (150-450); RED BLOOD COUNT 4.68 10^6/uL (4.00-5.40); WHITE BLOOD COUNT 8.4 10^3/uL (4.0-10.0)
[2024-05-26 08:36] LABS: ALBUMIN 3.3 G/DL (3.2-5.2); ALKALINE PHOSPHATASE 83 U/L (35-104); ALT/SGPT < 9 U/L (7.0-40); AST/SGOT < 8 U/L (<34); BILIRUBIN,DIRECT 0.1 MG/DL (<0.4); BILIRUBIN,TOTAL 0.4 MG/DL (0.3-1.2); BLOOD UREA NITROGEN 8 MG/DL (9-23); CALCIUM LEVEL 9.2 MG/DL (8.3-10.6); CARBON DIOXIDE LEVEL 34 MMOL/L (20-31); CHLORIDE LEVEL 102 MMOL/L (98-107); CREATININE FOR GFR 0.63 MG/DL (0.55-1.30); GLOMERULAR FILTRATION RATE > 90.0 (>39); GLUCOSE, FASTING 236 MG/DL (74-106); POTASSIUM SERUM 3.9 MMOL/L (3.5-5.1); SODIUM LEVEL 141 MMOL/L (136-145); TOTAL PROTEIN 6.3 G/DL (5.7-8.2)
[2024-05-26] MEDS: predniSONE 20 MG TAB PO ONE (08:59)
[2024-05-26] MEDS: IPRATROPIUM 0.5MG/ALBUTEROL 2.5MG INH SOL UD 3ML NEB PRN (09:17)
[2024-05-26] MEDS: PIPERACILLIN/TAZOBACTAM SOD 4.5 GM in DEXTROSE 5% (D5W) ADV/MINI-BAG 50 ML IV ONE (09:27)
[2024-05-26 11:48] LABS: ABG BASE EXCESS 2.3 (-2.0-2.0); ABG HCO3 29.3 MMOL/L (22.0-26.0); ABG O2 SATURATION 89.7 % (95.0-99.0); ABG PARTIAL PRESSURE O2 58.9 mmHg (75.0-100.0); ABG STANDARD HCO3 26.3 MMOL/L. (22.0-26.0); ABG TOTAL CO2 31.1 MMOL/L (23.0-31.0); ABG pH (ARTERIAL) 7.337 UNITS (7.350-7.450)
[2024-05-26] MEDS: IPRATROPIUM 0.5MG/ALBUTEROL 2.5MG INH SOL UD 3ML NEB ONE (12:24)
[2024-05-26] MEDS ORDERED: PRED10TA2 PO (13:03)
[2024-05-26 13:30] VITALS: BP 111/56; TEMP 97.5; O2SAT 94
== END 2024-05-26 13:44 | disposition home or self-care (01) ==
LOC: EDBD 07:32 → M ED 07:32
DX: J44.1 Chronic obstructive pulmonary disease with (acute) exacerbation (principal); R91.8 Other nonspecific abnormal finding of lung field; I10 Essential (primary) hypertension; E78.5 Hyperlipidemia, unspecified; Z87.891 Personal history of nicotine dependence; Z79.4 Long term (current) use of insulin; Z79.899 Other long term (current) drug therapy; Z88.8 Allergy status to other drugs, medicaments and biological substances
CPT/HCPCS: 36600; 71045; 71250; 80048; 80076; 82803; 83605; 85025; 87040; 87070; 87205; 87486; 87581; 87633; 87798; 93041; 94640; 94760; 96365; 99285; J2543; J7512

== ENCOUNTER → 2024-06-08 | Outpatient (CLI) | payer OTHER | LOC: M PLAIMG 12:28 | PROVIDERS: ATTEND Internal Medicine Pulmonary Disease | DX: R91.8 Other nonspecific abnormal finding of lung field (principal); R91.1 Solitary pulmonary nodule; Z53.9 Procedure and treatment not carried out, unspecified reason ==

== ENCOUNTER → 2024-06-16 | Outpatient (CLI) | payer OTHER | LOC: M WHC 12:13 | PROVIDERS: ATTEND Family Medicine | DX: Z12.31 Encounter for screening mammogram for malignant neoplasm of breast (principal); R92.313 Mammographic fatty tissue density, bilateral breasts ==

== ENCOUNTER → 2024-06-18 | Outpatient (REF) | payer OTHER ==
[2024-06-18 17:15] LABS: HEMATOCRIT 40.6 % (36.0-47.0); HEMOGLOBIN 12.6 g/dl (12.0-15.5); MEAN CORPUSCULAR HEMOGLOBIN 28.3 pg (27.0-33.0); MEAN CORPUSCULAR VOLUME 91.2 fl (80.0-96.0); PLATELET COUNT, AUTOMATED 251 10^3/uL (150-450); RED BLOOD COUNT 4.45 10^6/uL (4.00-5.40)
[2024-06-18 17:33] LABS: HEMOGLOBIN A1c 9.6 % (4.0-6.0)
[2024-06-18 17:48] LABS: ALBUMIN 2.7 G/DL (3.2-5.2); ALKALINE PHOSPHATASE 80 U/L (35-104); ALT/SGPT 9 U/L (7.0-40); AST/SGOT < 8 U/L (<34); BILIRUBIN,TOTAL 0.3 MG/DL (0.3-1.2); BLOOD UREA NITROGEN 12 MG/DL (9-23); CALCIUM LEVEL 9.2 MG/DL (8.3-10.6); CARBON DIOXIDE LEVEL 35 MMOL/L (20-31); CHLORIDE LEVEL 100 MMOL/L (98-107); CHOLESTEROL LEVEL 166 MG/DL (<200); CHOLESTEROL RISK RATIO 3.42 (<5); CREATININE FOR GFR 0.51 MG/DL (0.55-1.30); GLOMERULAR FILTRATION RATE > 90.0 (>39); GLUCOSE, FASTING 204 MG/DL (74-106); HDL CHOLESTEROL 48.4 MG/DL (>40); LDL CHOLESTEROL 90.8 MG/DL (<100); NON-HDL-C 117.6 MG/DL; POTASSIUM SERUM 3.8 MMOL/L (3.5-5.1); SODIUM LEVEL 142 MMOL/L (136-145); TRIGLYCERIDES LEVEL 134 MG/DL (<150)
[2024-06-18 17:49] LABS: FREE T4 1.52 NG/DL (0.89-1.76); THYROID STIMULATING HORMONE 2.445 uIU/ML (0.55-4.78); TOTAL 25(OH) VITAMIN D 15.4 NG/ML (20.0-100.0)
== END ==
LOC: M SFHCADAM 13:49
PROVIDERS: ATTEND Family Medicine
DX: E03.9 Hypothyroidism, unspecified (principal); E11.65 Type 2 diabetes mellitus with hyperglycemia; E78.5 Hyperlipidemia, unspecified; K76.0 Fatty (change of) liver, not elsewhere classified; M85.89 Other specified disorders of bone density and structure, multiple sites

== ENCOUNTER → 2024-09-17 | Outpatient (CLI) | payer OTHER ==
[~2024-09-17] MED LIST changes: +AZIT-12 PO; +METH-855 PO; +SENN-225 PO; -SENO8.6T5 PO
== END ==
LOC: M ADAMS 10:00
PROVIDERS: ATTEND Family Medicine
DX: J18.9 Pneumonia, unspecified organism (principal); J44.9 Chronic obstructive pulmonary disease, unspecified

== ENCOUNTER → 2024-09-17 | Outpatient (REF) | payer OTHER ==
[2024-09-17 13:28] LABS: PLATELET COUNT, AUTOMATED 187 10^3/uL (150-450)
[2024-09-17 14:43] LABS: ALT/SGPT 10 U/L (7.0-40); AST/SGOT 13 U/L (<34); CALCIUM LEVEL 9.2 MG/DL (8.3-10.6); CARBON DIOXIDE LEVEL 32 MMOL/L (20-31); CHLORIDE LEVEL 101 MMOL/L (98-107); CHOLESTEROL LEVEL 191 MG/DL (<200); CHOLESTEROL RISK RATIO 3.11 (<5); CREATININE FOR GFR 0.71 MG/DL (0.55-1.30); GLOMERULAR FILTRATION RATE > 90.0 (>39); LDL CHOLESTEROL 104.4 MG/DL (<100); NON-HDL-C 129.6 MG/DL; POTASSIUM SERUM 4.6 MMOL/L (3.5-5.1); SODIUM LEVEL 143 MMOL/L (136-145); TRIGLYCERIDES LEVEL 126 MG/DL (<150)
[2024-09-17 14:44] LABS: FREE T4 1.68 NG/DL (0.89-1.76); TOTAL 25(OH) VITAMIN D 26.3 NG/ML (20.0-100.0)
[2024-09-17 14:55] LABS: ESTIMATED AVERAGE GLUCOSE 166.0 MG/DL (60-110)
== END ==
LOC: M SFHCADAM 09:21
PROVIDERS: ATTEND Family Medicine
DX: J18.9 Pneumonia, unspecified organism (principal); E03.9 Hypothyroidism, unspecified; E78.5 Hyperlipidemia, unspecified; E11.65 Type 2 diabetes mellitus with hyperglycemia; M85.89 Other specified disorders of bone density and structure, multiple sites

== ENCOUNTER 2024-11-12 13:16 | Inpatient (IN) | payer OTHER ==
[~2024-11-12] VITALS: Ht 160 cm; Wt 72.5 kg
[~2024-11-12 13:16] MED LIST changes: -IBUP1TAB6 PO; +METH-1100 PO; -METH-855 PO; +SFHIBU600 PO
[2024-11-12 14:01] LABS: ABG BASE EXCESS 1.0 (-2.0-2.0); ABG HCO3 27.5 MMOL/L (22.0-26.0); ABG O2 SATURATION 96.3 % (95.0-99.0); ABG PARTIAL PRESSURE CO2 51.6 mmHg (35.0-45.0); ABG PARTIAL PRESSURE O2 85.7 mmHg (75.0-100.0); ABG STANDARD HCO3 25.3 MMOL/L. (22.0-26.0); ABG TOTAL CO2 29.1 MMOL/L (23.0-31.0); ABG pH (ARTERIAL) 7.345 UNITS (7.350-7.450)
[2024-11-12 14:06] LABS: BASO # 0.0 10^3/uL (0.0-0.2); BASO % 0.2 % (0.0-1.0); EOS # 0.0 10^3/uL (0.0-0.5); EOS % 0.1 % (0.0-3.0); LYMPH # 0.9 10^3/uL (1.5-5.0); LYMPH % 10.7 % (24.0-44.0); MONO # 0.4 10^3/uL (0.0-0.8); MONO % 5.0 % (2.0-8.0); NEUTROPHILS # 7.0 10^3/uL (1.5-8.5); NEUTROPHILS % 83.8 % (36.0-66.0); PLATELET COUNT, AUTOMATED 168 10^3/uL (150-450)
[2024-11-12 14:33] LABS: ALT/SGPT 14.0 U/L (7.0-40); AST/SGOT 15.0 U/L (<34); CALCIUM LEVEL 9.1 MG/DL (8.3-10.6); CARBON DIOXIDE LEVEL 32.0 MMOL/L (20-31); CHLORIDE LEVEL 101.0 MMOL/L (98-107); CREATININE FOR GFR 0.73 MG/DL (0.55-1.30); GLOMERULAR FILTRATION RATE 87.9 (>39); POTASSIUM SERUM 4.1 MMOL/L (3.5-5.1); SODIUM LEVEL 141.0 MMOL/L (136-145)
[2024-11-12 14:35] LABS: THYROXINE (T4) 10.2 UG/DL (4.5-10.9)
[2024-11-12] MEDS ORDERED: VITA100093 PO (16:15)
[2024-11-12] MEDS ORDERED: ISOVUE-370 76% 100 ML VIAL As Ordered ONE (16:16)
[2024-11-12] MEDS ORDERED: HOME MED LIST COMPLETE! XX SCH (16:20)
[2024-11-12 16:23] LABS: CK-MB VALUE MASS 1.0 NG/ML (<3.6)
[2024-11-12 16:24] LABS: CPK CREATINE PHOSPHOKINASE 38.0 U/L (34-145); MB/CK RELATIVE INDEX 2.63 (< OR =4)
[2024-11-12 16:50] LABS: CK-MB VALUE MASS < 1.0 NG/ML (<3.6)
[2024-11-12 16:51] LABS: CPK CREATINE PHOSPHOKINASE 34 U/L (34-145)
[2024-11-12] MEDS ORDERED: GLUCAGON INJ 1 MG VIAL SC PRN (18:00)
[2024-11-12] MEDS ORDERED: DEXTROSE 50% 50 ML SYRINGE IV PRN (18:00)
[2024-11-12] MEDS ORDERED: GLUCOSE 4 GM CHEW PO PRN (18:00)
[2024-11-12] MEDS: LEVALBUTEROL 1.25 MG 0.5ML CONCENTRATE NEB NEB SCH (20:30)
[2024-11-12] MEDS: IPRATROPIUM 0.5 MG/ALBUTEROL 2.5 MG INH SOL UD 3 ML NEB SCH (20:30)
[2024-11-12] MEDS: GLYCOPYRROLATE INJ 0.2 MG/ML 2 ML VIAL NEB SCH (20:30)
[2024-11-12 20:34] LABS: C REACTIVE PROTEIN QUANTITATIV 5.93 MG/DL (<1.0)
[2024-11-12] MEDS: MEROPENEM 1 GM in IV 1 EA IV SCH (21:45)
[2024-11-12] MEDS: guaiFENesin ER TABLET 600 MG TAB PO SCH (21:46)
[2024-11-12] MEDS: AZITHROMYCIN 250 MG TABLET PO SCH (21:46)
[2024-11-12] MEDS: LanTUS (INSULIN GLARGINE INJ) 1 UNITS/0.01 ML SC SCH (22:06)
[2024-11-12] MEDS: INSULIN LISPRO (NovoLOG) PER UNIT SC SCH (22:07)
[2024-11-13] VITALS (8 sets, daily range): BP systolic 116–129; BP diastolic 55–72; TEMP 97.7–98.1; O2SAT 90–95
[2024-11-13] MEDS: LEVOTHYROXINE 112 MCG TABLET (0.112 MG) PO SCH (05:11)
[2024-11-13 06:18] LABS: PLATELET COUNT, AUTOMATED 167 10^3/uL (150-450)
[2024-11-13 06:39] LABS: CALCIUM LEVEL 8.6 MG/DL (8.3-10.6); CARBON DIOXIDE LEVEL 28 MMOL/L (20-31); CHLORIDE LEVEL 102 MMOL/L (98-107); CREATININE FOR GFR 0.60 MG/DL (0.55-1.30); GLOMERULAR FILTRATION RATE > 90.0 (>39); MAGNESIUM LEVEL 1.7 MG/DL (1.8-2.4); POTASSIUM SERUM 4.8 MMOL/L (3.5-5.1); SODIUM LEVEL 141 MMOL/L (136-145)
[2024-11-13] MEDS: MAGNESIUM OXIDE 400 MG TAB PO ONE (08:39)
[2024-11-13] MEDS: VITAMIN D 1,000 INTERNATIONAL UNITS TABLET PO SCH (08:39)
[2024-11-13] MEDS: INSULIN LISPRO (NovoLOG) PER UNIT SC SCH (08:41)
[2024-11-13] MEDS: ENOXAPARIN 40 MG/0.4 ML SYRINGE (J1650 PER 10MG) SC SCH (08:42)
[2024-11-13] MEDS ORDERED: LanTUS (INSULIN GLARGINE INJ) 1 UNITS/0.01 ML SC SCH (09:00)
[2024-11-13 09:39] LABS: KETONE, URINE AUTO RFX TRACE mg/dL (NEGATIVE); RBC, URINE AUTO RFX 0 /HPF (0-3); SQUAM EPITHELIAL CELL UR AURFX 1 /HPF (0-6)
[2024-11-13 09:40] LABS: LEUKOCYTE ESTERASE UR AUTO RFX TRACE (NEGATIVE); NITRITE, URINE AUTO RFX POSITIVE (NEGATIVE); WBC, URINE AUTO RFX 17 /HPF (0-3)
[2024-11-13] MEDS: LanTUS (INSULIN GLARGINE INJ) 1 UNITS/0.01 ML SC SCH ×2 (10:49→20:43)
[2024-11-13] MEDS: INSULIN LISPRO (NovoLOG) PER UNIT SC STA (15:03)
[2024-11-13] MEDS ORDERED: LEVALBUTEROL 1.25 MG 0.5ML CONCENTRATE NEB NEB PRN (15:25)
[2024-11-13] MEDS ORDERED: INSULIN LISPRO (NovoLOG) PER UNIT SC STA (17:38)
[2024-11-13] MEDS: INSULIN LISPRO (NovoLOG) PER UNIT SC ONE (18:09)
[2024-11-13] MEDS: predniSONE 20 MG TAB PO SCH (20:44)
[2024-11-13] MEDS: ACETAMINOPHEN 325 MG TAB PO PRN (22:12)
[2024-11-14 01:58] VITALS: O2SAT 95
[2024-11-14 02:05] VITALS: O2SAT 94
[2024-11-14 03:32] VITALS: BP 111/58; TEMP 97.5; O2SAT 91
[2024-11-14 05:54] LABS: PLATELET COUNT, AUTOMATED 162 10^3/uL (150-450)
[2024-11-14 06:18] LABS: CALCIUM LEVEL 8.4 MG/DL (8.3-10.6); CARBON DIOXIDE LEVEL 31 MMOL/L (20-31); CHLORIDE LEVEL 103 MMOL/L (98-107); CREATININE FOR GFR 0.64 MG/DL (0.55-1.30); GLOMERULAR FILTRATION RATE > 90.0 (>39); MAGNESIUM LEVEL 2.0 MG/DL (1.8-2.4); POTASSIUM SERUM 5.6 MMOL/L (3.5-5.1); SODIUM LEVEL 137 MMOL/L (136-145)
[2024-11-14 07:20] VITALS: O2SAT 91
[2024-11-14] MEDS: PATIROMER SORBITEX CALCIUM 8.4GM POWDER PACKET PO ONE (08:25)
[2024-11-14 11:39] VITALS: BP 133/65; TEMP 98.1; O2SAT 90
[2024-11-14] MEDS: predniSONE 20 MG TAB PO SCH (12:31)
[2024-11-14] MEDS ORDERED: SYMB16INH INH (13:06)
[2024-11-14] MEDS ORDERED: AZIT-12 PO (13:06)
[2024-11-14] MEDS ORDERED: MUCI600T31 PO (13:06)
[2024-11-14] MEDS ORDERED: COMBAER6 INH (13:06)
[2024-11-14] MEDS ORDERED: PRED10TA2 PO (13:06)
== END 2024-11-14 15:45 | disposition home health service (06) | DRG 140 ==
LOC: EDBD 13:16 → M ED 13:16 → M ED INP 16:58 → UNDOADMIN 16:58 → M ED INP 11-13 01:27 → M MSPAV 11-13 02:35
PROVIDERS: ADMIT Internal Medicine; ATTEND Internal Medicine
DX: J44.1 Chronic obstructive pulmonary disease with (acute) exacerbation (principal); J96.21 Acute and chronic respiratory failure with hypoxia; J96.12 Chronic respiratory failure with hypercapnia; I27.20 Pulmonary hypertension, unspecified; I11.0 Hypertensive heart disease with heart failure; E83.42 Hypomagnesemia; I50.32 Chronic diastolic (congestive) heart failure; E11.42 Type 2 diabetes mellitus with diabetic polyneuropathy; Z99.81 Dependence on supplemental oxygen; E11.65 Type 2 diabetes mellitus with hyperglycemia; E05.00 Thyrotoxicosis with diffuse goiter without thyrotoxic crisis or storm; K76.0 Fatty (change of) liver, not elsewhere classified; N39.0 Urinary tract infection, site not specified; M85.80 Other specified disorders of bone density and structure, unspecified site; E78.5 Hyperlipidemia, unspecified; Z90.49 Acquired absence of other specified parts of digestive tract; Z87.891 Personal history of nicotine dependence; E03.2 Hypothyroidism due to medicaments and other exogenous substances; Z79.4 Long term (current) use of insulin; Z79.890 Hormone replacement therapy; Z79.84 Long term (current) use of oral hypoglycemic drugs; Z79.899 Other long term (current) drug therapy; Z88.8 Allergy status to other drugs, medicaments and biological substances

== ENCOUNTER → 2024-12-25 | Outpatient (REF) | payer OTHER ==
[~2024-12-25] MED LIST changes: +MUCI600T31 PO; +VITA100093 PO
[2024-12-25 17:54] LABS: PLATELET COUNT, AUTOMATED 206 10^3/uL (150-450)
[2024-12-25 17:58] LABS: ALT/SGPT 10 U/L (7.0-40); AST/SGOT 9 U/L (<34); CALCIUM LEVEL 8.4 MG/DL (8.3-10.6); CARBON DIOXIDE LEVEL 33 MMOL/L (20-31); CHLORIDE LEVEL 102 MMOL/L (98-107); CHOLESTEROL LEVEL 178 MG/DL (<200); CHOLESTEROL RISK RATIO 3.50 (<5); CREATININE FOR GFR 0.65 MG/DL (0.55-1.30); GLOMERULAR FILTRATION RATE > 90.0 (>39); LDL CHOLESTEROL 86.6 MG/DL (<100); NON-HDL-C 127.2 MG/DL; POTASSIUM SERUM 4.5 MMOL/L (3.5-5.1); SODIUM LEVEL 143 MMOL/L (136-145); TRIGLYCERIDES LEVEL 203 MG/DL (<150)
[2024-12-25 18:02] LABS: TOTAL 25(OH) VITAMIN D 22.5 NG/ML (20.0-100.0)
[2024-12-25 18:03] LABS: FREE T4 1.59 NG/DL (0.89-1.76); VITAMIN B12 LEVEL 414 PG/ML (211-911)
[2024-12-25 18:31] LABS: ESTIMATED AVERAGE GLUCOSE 197.0 MG/DL (60-110)
== END ==
LOC: M SFHCADAM 11:17
PROVIDERS: ATTEND Family Medicine
DX: E03.9 Hypothyroidism, unspecified (principal); E11.65 Type 2 diabetes mellitus with hyperglycemia; E78.5 Hyperlipidemia, unspecified; G62.9 Polyneuropathy, unspecified; M85.89 Other specified disorders of bone density and structure, multiple sites; E55.9 Vitamin D deficiency, unspecified

== ENCOUNTER 2025-01-18 13:16 | Inpatient (IN) | payer OTHER ==
[~2025-01-18] VITALS: Ht 154.9 cm; Wt 75.6 kg
[2025-01-18] MEDS ORDERED: IPRATROPIUM 0.5 MG/ALBUTEROL 2.5 MG INH SOL UD 3 ML NEB PRN (13:30)
[2025-01-18 14:01] LABS: BASO # 0.0 10^3/uL (0.0-0.2); BASO % 0.3 % (0.0-1.0); EOS # 0.0 10^3/uL (0.0-0.5); EOS % 0.1 % (0.0-3.0); LYMPH # 1.2 10^3/uL (1.5-5.0); LYMPH % 8.6 % (24.0-44.0); MONO # 0.6 10^3/uL (0.0-0.8); MONO % 4.0 % (2.0-8.0); NEUTROPHILS # 12.1 10^3/uL (1.5-8.5); NEUTROPHILS % 84.6 % (36.0-66.0); PLATELET COUNT, AUTOMATED 408 10^3/uL (150-450)
[2025-01-18 14:04] LABS: VENOUS BASE EXCESS 4.4 (-2.0-2.0); VENOUS HCO3 32.6 MMOL/L (23.0-27.0); VENOUS O2 SATURATION 71.9 % (60.0-80.0); VENOUS PARTIAL PRESSURE CO2 66.4 mmHg (38.0-50.0); VENOUS PARTIAL PRESSURE O2 38.3 mmHg (30.0-50.0); VENOUS PH 7.309 UNITS (7.330-7.430); VENOUS STANDARD HCO3 27.7 MMOL/L; VENOUS TOTAL CO2 34.6 MMOL/L (24.0-28.0)
[2025-01-18] MEDS: cefTRIAXone SOD 1 GM in DEXTROSE 5% (D5W) ADV/MINI-BAG 50 ML IV ONE (14:33)
[2025-01-18] MEDS: AZITHROMYCIN 250 MG TABLET PO ONE (14:33)
[2025-01-18 15:47] LABS: ALT/SGPT 16 U/L (7.0-40); AST/SGOT 16 U/L (<34); CALCIUM LEVEL 8.8 MG/DL (8.3-10.6); CARBON DIOXIDE LEVEL 32 MMOL/L (20-31); CHLORIDE LEVEL 95 MMOL/L (98-107); CREATININE FOR GFR 0.55 MG/DL (0.55-1.30); GLOMERULAR FILTRATION RATE > 90.0 (>39); POTASSIUM SERUM 3.9 MMOL/L (3.5-5.1); SODIUM LEVEL 137 MMOL/L (136-145)
[2025-01-18 16:06] LABS: ABG BASE EXCESS 4.5 (-2.0-2.0); ABG HCO3 31.4 MMOL/L (22.0-26.0); ABG O2 SATURATION 94.0 % (95.0-99.0); ABG PARTIAL PRESSURE CO2 57.6 mmHg (35.0-45.0); ABG PARTIAL PRESSURE O2 68.9 mmHg (75.0-100.0); ABG STANDARD HCO3 28.4 MMOL/L. (22.0-26.0); ABG TOTAL CO2 33.1 MMOL/L (23.0-31.0); ABG pH (ARTERIAL) 7.354 UNITS (7.350-7.450)
[2025-01-18] MEDS ORDERED: GLUCOSE 4 GM CHEW PO PRN (16:25)
[2025-01-18] MEDS ORDERED: GLUCAGON INJ 1 MG VIAL SC PRN (16:25)
[2025-01-18] MEDS ORDERED: DEXTROSE 50% 50 ML SYRINGE IV PRN (16:25)
[2025-01-18] MEDS ORDERED: COMBAER6 INH (16:56)
[2025-01-18] MEDS ORDERED: MUCI600T31 PO (16:56)
[2025-01-18] MEDS ORDERED: MELO15TA28 PO (17:00)
[2025-01-18] MEDS ORDERED: HOME MED LIST COMPLETE! XX SCH (17:05)
[2025-01-18 17:17] LABS: KETONE, URINE AUTO RFX 1+ mg/dL (NEGATIVE); RBC, URINE AUTO RFX 0 /HPF (0-3); SQUAM EPITHELIAL CELL UR AURFX 11 /HPF (0-6)
[2025-01-18 17:19] LABS: LEUKOCYTE ESTERASE UR AUTO RFX 2+ (NEGATIVE); NITRITE, URINE AUTO RFX POSITIVE (NEGATIVE); WBC, URINE AUTO RFX TNTC /HPF (0-3)
[2025-01-18] MEDS: INSULIN LISPRO (NovoLOG) PER UNIT SC SCH ×2 (18:08→20:34)
[2025-01-18] MEDS: MEROPENEM 1 GM in IV 1 EA IV SCH (19:58)
[2025-01-18] MEDS: BUDESONIDE 0.5 MG/2 ML INHALATION SUSPENSION NEB SCH (20:18)
[2025-01-18] MEDS: IPRATROPIUM 0.5 MG/ALBUTEROL 2.5 MG INH SOL UD 3 ML NEB SCH (20:19)
[2025-01-18] MEDS: DOXYCYCLINE HYCLATE 100 MG TABLET PO SCH (20:33)
[2025-01-18] MEDS: guaiFENesin ER TABLET 600 MG TAB PO SCH (20:33)
[2025-01-18] MEDS: LanTUS (INSULIN GLARGINE INJ) 1 UNITS/0.01 ML SC SCH (20:34)
[2025-01-18] MEDS: MELOXICAM 7.5 MG TAB PO SCH (23:31)
[2025-01-18] MEDS: ACETAMINOPHEN 500 MG TAB PO PRN (23:32)
[2025-01-19] MEDS ORDERED: MELOXICAM 7.5 MG TAB PO SCH (09:00)
[2025-01-19] MEDS: ENOXAPARIN 40 MG/0.4 ML SYRINGE (J1650 PER 10MG) SC SCH (09:50)
[2025-01-19 11:34] LABS: PLATELET COUNT, AUTOMATED 397 10^3/uL (150-450)
[2025-01-19 12:10] LABS: CALCIUM LEVEL 8.9 MG/DL (8.3-10.6); CARBON DIOXIDE LEVEL 32 MMOL/L (20-31); CHLORIDE LEVEL 94 MMOL/L (98-107); CREATININE FOR GFR 0.64 MG/DL (0.55-1.30); GLOMERULAR FILTRATION RATE > 90.0 (>39); POTASSIUM SERUM 4.1 MMOL/L (3.5-5.1); SODIUM LEVEL 134 MMOL/L (136-145)
[2025-01-19] MEDS: LEVOTHYROXINE 112 MCG TABLET (0.112 MG) PO SCH (12:24)
[2025-01-19] MEDS: LanTUS (INSULIN GLARGINE INJ) 1 UNITS/0.01 ML SC ONE (13:37)
[2025-01-19] MEDS: INSULIN LISPRO (NovoLOG) PER UNIT SC STA (13:39)
[2025-01-19] MEDS ORDERED: INSULIN LISPRO (NovoLOG) PER UNIT SC SCH (17:30)
[2025-01-19] MEDS: INSULIN LISPRO (NovoLOG) PER UNIT SC SCH (18:32)
[2025-01-19] MEDS: ACETAMINOPHEN 325 MG TAB PO PRN (22:26)
[2025-01-19 22:40] VITALS: BP 125/58; TEMP 98.1; O2SAT 94
[2025-01-20 04:02] VITALS: BP 129/61; TEMP 98; O2SAT 94
[2025-01-20 05:51] LABS: BASO # 0.0 10^3/uL (0.0-0.2); BASO % 0.2 % (0.0-1.0); EOS # 0.0 10^3/uL (0.0-0.5); EOS % 0.0 % (0.0-3.0); LYMPH # 0.9 10^3/uL (1.5-5.0); LYMPH % 5.3 % (24.0-44.0); MONO # 0.4 10^3/uL (0.0-0.8); MONO % 2.4 % (2.0-8.0); NEUTROPHILS # 14.4 10^3/uL (1.5-8.5); NEUTROPHILS % 88.2 % (36.0-66.0); PLATELET COUNT, AUTOMATED 368 10^3/uL (150-450)
[2025-01-20 06:24] LABS: CALCIUM LEVEL 8.8 MG/DL (8.3-10.6); CARBON DIOXIDE LEVEL 34 MMOL/L (20-31); CHLORIDE LEVEL 99 MMOL/L (98-107); CREATININE FOR GFR 0.71 MG/DL (0.55-1.30); GLOMERULAR FILTRATION RATE > 90.0 (>39); POTASSIUM SERUM 4.4 MMOL/L (3.5-5.1); SODIUM LEVEL 138 MMOL/L (136-145)
[2025-01-20 07:03] VITALS: O2SAT 98
[2025-01-20 11:33] VITALS: BP 122/57; TEMP 97.9; O2SAT 92
[2025-01-20 19:49] VITALS: BP 140/66; TEMP 97.4; O2SAT 91
[2025-01-20] MEDS: cefTRIAXone SOD 2 GM in DEXTROSE 5% (D5W) ADV/MINI-BAG 50 ML IV SCH (21:16)
[2025-01-21 09:31] LABS: PLATELET COUNT, AUTOMATED 351 10^3/uL (150-450)
[2025-01-21 09:54] LABS: CALCIUM LEVEL 8.8 MG/DL (8.3-10.6); CARBON DIOXIDE LEVEL 36 MMOL/L (20-31); CHLORIDE LEVEL 98 MMOL/L (98-107); CREATININE FOR GFR 0.67 MG/DL (0.55-1.30); GLOMERULAR FILTRATION RATE > 90.0 (>39); POTASSIUM SERUM 4.4 MMOL/L (3.5-5.1); SODIUM LEVEL 139 MMOL/L (136-145)
[2025-01-21 12:00] VITALS: BP 133/68; TEMP 98.1; O2SAT 95
[2025-01-21] MEDS: LIDOCAINE 5% PATCH TD ONE (15:55)
[2025-01-21] MEDS ORDERED: SODIUM CHLORIDE 0.9% 3 ML NEB SOLUTION FOR INHALATION INH SCH (20:00)
[2025-01-21 20:47] VITALS: BP 134/63; TEMP 98.1; O2SAT 95
[2025-01-21] MEDS: LanTUS (INSULIN GLARGINE INJ) 1 UNITS/0.01 ML SC SCH (21:05)
[2025-01-21] MEDS: ACETAMINOPHEN 325 MG TAB PO SCH (21:13)
[2025-01-22] VITALS (16 sets, daily range): BP systolic 138–140; BP diastolic 63–80; TEMP 97.1–98.7; O2SAT 79–96
[2025-01-22] MEDS: SODIUM CHLORIDE HYPERTONIC 3% 4ML NEB SOL INH SCH (07:42)
[2025-01-22] MEDS: SYMBICORT 160/4.5MCG INHALER 6GM INH SCH (07:43)
[2025-01-22 07:54] LABS: PLATELET COUNT, AUTOMATED 388 10^3/uL (150-450)
[2025-01-22] MEDS: predniSONE 20 MG TAB PO SCH (08:00)
[2025-01-22 08:21] LABS: CALCIUM LEVEL 8.3 MG/DL (8.3-10.6); CARBON DIOXIDE LEVEL 35 MMOL/L (20-31); CHLORIDE LEVEL 96 MMOL/L (98-107); CREATININE FOR GFR 0.58 MG/DL (0.55-1.30); GLOMERULAR FILTRATION RATE > 90.0 (>39); POTASSIUM SERUM 4.6 MMOL/L (3.5-5.1); SODIUM LEVEL 137 MMOL/L (136-145)
[2025-01-22] MEDS: TIOTROPIUM BROM 2.5MCG/ACTUATION 4GM INH INH SCH (16:20)
[2025-01-22] MEDS: DICLOFENAC EPOLAMINE 1.3% PATCH TOP SCH (20:52)
[2025-01-23 03:58] VITALS: BP 129/61; TEMP 97.7; O2SAT 95
[2025-01-23 06:04] LABS: PLATELET COUNT, AUTOMATED 351 10^3/uL (150-450)
[2025-01-23 06:31] LABS: CALCIUM LEVEL 8.2 MG/DL (8.3-10.6); CARBON DIOXIDE LEVEL 37 MMOL/L (20-31); CHLORIDE LEVEL 100 MMOL/L (98-107); CREATININE FOR GFR 0.56 MG/DL (0.55-1.30); GLOMERULAR FILTRATION RATE > 90.0 (>39); POTASSIUM SERUM 4.1 MMOL/L (3.5-5.1); SODIUM LEVEL 142 MMOL/L (136-145)
[2025-01-23 12:17] VITALS: BP 141/64; TEMP 98.5; O2SAT 91
[2025-01-23 20:12] VITALS: BP 131/66; TEMP 98.3; O2SAT 91
[2025-01-24 01:12] LABS: URINE STREP PNEUMONIAE ANTIGEN Not Detected (Not Detected)
[2025-01-24 03:49] VITALS: BP 143/64; TEMP 97.3; O2SAT 95
[2025-01-24 05:46] LABS: PLATELET COUNT, AUTOMATED 341 10^3/uL (150-450)
[2025-01-24 06:10] LABS: CALCIUM LEVEL 8.2 MG/DL (8.3-10.6); CARBON DIOXIDE LEVEL 36 MMOL/L (20-31); CHLORIDE LEVEL 99 MMOL/L (98-107); CREATININE FOR GFR 0.61 MG/DL (0.55-1.30); GLOMERULAR FILTRATION RATE > 90.0 (>39); POTASSIUM SERUM 4.4 MMOL/L (3.5-5.1); SODIUM LEVEL 141 MMOL/L (136-145)
[2025-01-24] MEDS ORDERED: PRED20TA PO (10:40)
[2025-01-24] MEDS ORDERED: CEFP200T PO (10:40)
[2025-01-24] MEDS ORDERED: SPIR12.9 INH (10:40)
[2025-01-24] MEDS ORDERED: CEFD1CAP9 PO (11:02)
[2025-01-24 12:05] VITALS: BP 175/76; TEMP 98.2; O2SAT 93
== END 2025-01-24 13:29 | disposition home or self-care (01) | DRG 139 ==
LOC: M ED 13:16 → EDBD 13:16 → EEVIPCON 16:23 → M ED INP 16:23 → M MSPAV 01-19 22:36
PROVIDERS: ADMIT Internal Medicine; ATTEND Student in an Organized Health Care Education/Training Program
DX: J18.9 Pneumonia, unspecified organism (principal); J96.21 Acute and chronic respiratory failure with hypoxia; J91.8 Pleural effusion in other conditions classified elsewhere; I50.32 Chronic diastolic (congestive) heart failure; E11.65 Type 2 diabetes mellitus with hyperglycemia; Z99.81 Dependence on supplemental oxygen; J44.0 Chronic obstructive pulmonary disease with (acute) lower respiratory infection; J44.1 Chronic obstructive pulmonary disease with (acute) exacerbation; B96.1 Klebsiella pneumoniae [K. pneumoniae] as the cause of diseases classified elsewhere; N39.0 Urinary tract infection, site not specified; E03.9 Hypothyroidism, unspecified; Z79.890 Hormone replacement therapy; Z79.899 Other long term (current) drug therapy; Z88.8 Allergy status to other drugs, medicaments and biological substances; R91.1 Solitary pulmonary nodule; T38.0X5A Adverse effect of glucocorticoids and synthetic analogues, initial encounter